=== PATIENT | male | born 1960 | race Hispanic/Latino ===

== ENCOUNTER 2018-12-26 10:39 | Emergency (ER) | payer MEDICAID ==
[2018-12-26] MEDS ORDERED: TETANUS/DIPHTHERIA TOXOID [ADULT] 0.5 ML VIAL IM ONE (10:56)
[2018-12-26] MEDS ORDERED: KETOROLAC TROMETHAMINE 60 MG/2 ML VIAL ONE (11:17)
== END 2018-12-26 11:53 | disposition home or self-care (01) ==
LOC: EDH 10:39
DX: S91.011A Laceration without foreign body, right ankle, initial encounter (principal); S43.491A Other sprain of right shoulder joint, initial encounter; I10 Essential (primary) hypertension; E78.5 Hyperlipidemia, unspecified; Z72.0 Tobacco use; W26.8XXA Contact with other sharp object(s), not elsewhere classified, initial encounter; Y93.89 Activity, other specified; Y92.89 Other specified places as the place of occurrence of the external cause; Y99.8 Other external cause status
CPT/HCPCS: 90471; 90714; 96372; 99284; J1885

== ENCOUNTER 2019-04-25 20:12 | Emergency (ER) | payer MEDICAID ==
[2019-04-25 21:00] LABS: BASOPHILS % (AUTO) 0.9 % (0.0-5.0); EOSINOPHILS % (AUTO) 0.1 % (0.0-8.0); HEMATOCRIT 52.4 % (42-54); MEAN CORPUSCULAR HEMOGLOBIN 34.8 pg (27.0-33.0); MEAN CORPUSCULAR HGB CONC 34.8 g/dL (32.0-36.0); MEAN CORPUSCULAR VOLUME 100.1 fL (79-99); MONOCYTES % (AUTO) 4.8 % (3.0-13.0); NEUTROPHILS % (AUTO) 83.2 % (40.0-77.0); PLATELET COUNT (AUTO) 171 K/uL (130-400); RED BLOOD CELL COUNT(AUTO) 5.23 MIL/uL (4.50-6.20); RED CELL DISTRIBUTION WIDTH 13.7 % (11.0-15.5); WHITE BLOOD COUNT (AUTO) 11.2 K/uL (4.8-10.8)
[2019-04-25] MEDS ORDERED: SODIUM CHLORIDE 0.9% 1000ML 1,000 ML IV ONE ×2 (21:07→23:24)
[2019-04-25] MEDS ORDERED: FAMOTIDINE/PF 20 MG/2 ML VIAL IV ONE (21:07)
[2019-04-25] MEDS ORDERED: ONDANSETRON HCL 4 MG/2 ML VIAL ONE (21:07)
[2019-04-25 21:11] LABS: CREATININE 0.9 mg/dL (0.5-1.5); POTASSIUM 3.8 mmol/L (3.5-5.1)
[2019-04-25 21:13] LABS: INR 0.97 (0.85-1.15); PARTIAL THROMBOPLASTIN TIME 26.5 SEC (26.3-35.5); PROTHROMBIN TIME 10.2 SEC (9.6-11.6)
[2019-04-25 21:16] LABS: ALBUMIN 4.2 g/dL (3.5-5.0); BILIRUBIN,TOTAL 0.9 mg/dL (0.2-1.0); TOTAL PROTEIN, SERUM 7.9 g/dL (6.0-8.3)
[2019-04-25] MEDS ORDERED: IOHEXOL-350 75 ML VIAL IV ONE (21:33)
[2019-04-25] MEDS ORDERED: METOCLOPRAMIDE 10 MG/2 ML VIAL ONE (23:24)
[2019-04-25] MEDS ORDERED: SODIUM CHLORIDE 0.9% 100 ML IV ONE (23:46)
[2019-04-25] MEDS ORDERED: HYDRALAZINE HCL 20 MG/ML VIAL ONE (23:46)
[2019-04-25 23:53] LABS: APPEARANCE,URINE Clear (CLEAR); BILIRUBIN,URINE Negative (NEGATIVE); COLOR,URINE Yellow (YELLOW); GLUCOSE, URINE (UA) Negative (NEGATIVE); KETONES,URINE Negative (NEGATIVE); LEUKOCYTE ESTERASE ,URINE Negative (NEGATIVE); NITRATE,URINE Negative (NEGATIVE); OCCULT BLOOD,URINE Nonhemolyzed Trace (NEGATIVE); PROTEIN,URINE Negative (NEGATIVE); UROBILINOGEN,URINE 0.2 mg/dL (0.2-1.0)
[2019-04-26 00:21] LABS: BACTERIA,URINE Rare /HPF (None Seen); RBC,URINE 0-1 /HPF (0-1); WBC,URINE 0-1 /HPF (0-1)
== END 2019-04-26 00:21 | disposition home or self-care (01) ==
LOC: EDH 20:12
DX: E86.9 Volume depletion, unspecified (principal); M54.5 Low back pain; I10 Essential (primary) hypertension; E78.5 Hyperlipidemia, unspecified; Z98.890 Other specified postprocedural states; Z72.0 Tobacco use
CPT/HCPCS: 36415; 71045; 74177; 80053; 81001; 82550; 83605; 83690; 84484; 85025; 85610; 85730; 87040 ×2; 93005; 96361; 96374; 96375; 99285; J0360; J2405; J2765; J3490; J7030 ×2; Q9967

== ENCOUNTER 2019-10-28 18:33 | Emergency (ER) | payer MEDICAID | END 2019-10-28 19:15 | disposition home or self-care (01) | LOC: EDH 18:33 | DX: T16.1XXA Foreign body in right ear, initial encounter (principal); I10 Essential (primary) hypertension; E78.5 Hyperlipidemia, unspecified; Z98.890 Other specified postprocedural states; Z72.0 Tobacco use; X58.XXXA Exposure to other specified factors, initial encounter; Y93.89 Activity, other specified; Y92.89 Other specified places as the place of occurrence of the external cause; Y99.8 Other external cause status ==

== ENCOUNTER 2022-06-25 14:16 | Emergency (ER) | payer MEDICAID ==
[~2022-06-25] VITALS: Ht 188 cm; Wt 95.3 kg
[2022-06-25 14:17] VITALS: BP 170/89
[2022-06-25] MEDS ORDERED: AMOX/CLAV 875/125MG TAB PO ONE (15:00)
[2022-06-25] MEDS ORDERED: AMOX1TAB16 PO (15:44)
== END 2022-06-25 16:10 | disposition home or self-care (01) ==
LOC: EDH 14:16
DX: S91.012A Laceration without foreign body, left ankle, initial encounter (principal); I10 Essential (primary) hypertension; Z98.890 Other specified postprocedural states; W54.0XXA Bitten by dog, initial encounter; Y93.9 Activity, unspecified; Y92.89 Other specified places as the place of occurrence of the external cause; Y99.8 Other external cause status
CPT/HCPCS: 73610

== ENCOUNTER 2025-01-30 09:35 | Inpatient (IN) | payer MEDICARE, MEDICAID ==
[~2025-01-30] VITALS: Ht 188 cm; Wt 108.2 kg
[~2025-01-30 09:35] MED LIST: ACET-66 PO; AEC81 PO; LOSA50TA64 PO; MULT-1289 PO; NAPR-1196 PO; OMEP20CA12 PO; TERB250T89 PO
[2025-01-30 10:10] LABS: BASOPHILS # (AUTO) 0.05 K/uL (0.00-0.20); BASOPHILS % (AUTO) 0.6 % (0.0-5.0); EOSINOPHILS # (AUTO) 0.12 K/uL (0.00-0.70); EOSINOPHILS % (AUTO) 1.5 % (0.0-8.0); HEMATOCRIT 42.5 % (42-54); IMMATURE GRANULOCYTE ABSOLUTE 0.03 K/uL (0-1); LYMPHOCYTES # (AUTO) 1.6 K/uL (1.0-4.8); LYMPHOCYTES % (AUTO) 20.6 % (21.0-51.0); MEAN CORPUSCULAR HEMOGLOBIN 33.7 pg (27.0-33.0); MEAN CORPUSCULAR HGB CONC 33.9 g/dL (32.0-36.0); MEAN CORPUSCULAR VOLUME 99.5 fL (79-99); MONOCYTES # (AUTO) 0.9 K/uL (0.1-1.0); MONOCYTES % (AUTO) 10.9 % (3.0-13.0); NEUTROPHILS # (AUTO) 5.2 K/uL (1.8-7.7); PLATELET COUNT (AUTO) 149 K/uL (130-400); RED BLOOD CELL COUNT(AUTO) 4.27 MIL/uL (4.50-6.20); RED CELL DISTRIBUTION WIDTH 14.7 % (11.0-15.5); WHITE BLOOD COUNT (AUTO) 7.9 K/uL (4.8-10.8)
[2025-01-30 10:15] LABS: INR 1.09 (0.85-1.15); PROTHROMBIN TIME 11.5 SEC (9.6-11.6)
[2025-01-30 10:16] LABS: PARTIAL THROMBOPLASTIN TIME 28.3 SEC (26.3-35.5)
[2025-01-30 10:17] LABS: ALBUMIN 3.6 g/dL (3.5-5.0); BILIRUBIN,DIRECT 0.6 mg/dL (0.0-0.3); BILIRUBIN,TOTAL 1.9 mg/dL (0.2-1.0); CREATININE 1.1 mg/dL (0.5-1.3); POTASSIUM 4.1 mmol/L (3.5-5.1); TOTAL PROTEIN, SERUM 7.2 g/dL (6.0-8.3)
--- NOTE | 2025-01-30 10:18 | EKG ---
[facility] Test Date: 2025-01-30 Test Time: 09:41:32 Pat Name: RAQUEL AGUAYO Department: 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
[2025-01-30 10:49] LABS: B-TYPE NATRIURETIC PEPTIDE 963 pg/mL (0-100)
--- NOTE | 2025-01-30 11:07 | HMCIMG ---
Exam Type: CHEST 1VW Clinical Information: CHEST PAIN Comparison: None Findings: Ill-defined infiltrates of both lungs are seen consistent with bilateral pneumonia. The heart is large in size. The bony and soft tissue structures show no worrisome pathology. IMPRESSION: Findings consistent with pneumonia. Cardiomegaly. Follow-up is advised.
[2025-01-30] MEDS ORDERED: acetaMINOPHEN 325 MG TAB PO PRN (13:00)
[2025-01-30] MEDS ORDERED: ondanSETRON 4MG INJ IVP PRN (13:00)
[2025-01-30] MEDS ORDERED: NITROGLYCERIN 0.4 MG SL TAB SL PRN (13:00)
--- NOTE | 2025-01-30 13:05 | ERN ---
ED Note History of Present Illness Stated Complaint: CP Chief Complaint: Chest Pain Time Seen by MD: 09:39 Dictation: 64-year-old male presenting to the emergency department with shortness a breath and lower extremity swelling over the past few weeks worse over the past few days. Patient reports this morning he fell palpitations and difficulty breathing when he walks around Allergies: Coded Allergies: No Known Drug Allergies (Unverified Allergy, Unknown, 04/26/19) Home Meds Reported Medications Terbinafine HCl (Terbinafine HCl) 250 Mg Tablet, 250 MG PO DAILY, TAB 02/29/24 Losartan Potassium (Losartan Potassium) 50 Mg Tablet, 50 MG PO DAILY, TAB 02/29/24 Aspirin (ASPIRIN 81 MG ECTAB) 81 Mg Ectab, 81 MG PO DAILY, TAB.EC 02/29/24 Omeprazole (Omeprazole) 20 Mg Capsule.dr, 20 MG PO DAILY, CAP 02/29/24 Mv-Min/Folic/K1/Lycopen/Lutein (Centrum Silver Men Tablet) 300 Mcg-60 Mcg-600 Mcg-300 Mcg Tablet, 1 EACH PO QODAY, TAB 02/28/24 Acetaminophen (Tylenol) 500 Mg Tab, 500 MG PO Q4H PRN for PAIN LEVEL 1 TO 5, TAB 02/28/24 Naproxen (Naproxen) 250 Mg Tablet, 250 MG PO BID, TAB 02/28/24 Past Medical History Past Medical History: No Pertinent History Additional Past Medical Hx: NON COMPLIANT Surgical History: Other Surgical History Other: KNEE Social History: Negative, Lives with family Review of System Dictation Constitutional: Negative for fever,chills, and weight loss Eyes: Negative for injury, pain,redness, and discharge ENT: Negative for injury,pain or swelling Cardiovascular: Per HPI Respiratory: Per HPI Abdomen/GI: Negative for abdominal pain, nausea, vomiting, diarrhea, and constipation Back: Negative for injury and pain : Negative for injury, bleeding and discharge MS/Extremity: Negative for injury and deformity Skin: Negative for rash, and discoloration Neuro: Negative for headache, weakness, numbness, tingling, and seizure Psych: Negative for suicide ideation, homicidal ideation, and hallucinations Initial Vital Sign VS Vital Signs Date Time Temp Pulse Resp B/P (MAP) Pulse Ox O2 Delivery O2 Flow Rate FiO2 01/30/25 09:36 97.9 139 20 147/117 96 Room Air 0 Physical Exam Dictation General: awake, alert, NAD Head/Face: Normocephalic, atraumatic Eyes: PERRL, EOMI, vision at baseline ENT: oral cavity clear, TMs clear, no signs of infection Neck: Trachea midline, supple, no nuchal rigidity Cardiovascular: Tachycardia normal S1/S2, No MRGs, positive for JVD, and bilateral lower extremity pitting edema Respiratory: Coarse bilateral breath sounds with crackles at the bases. Abdomen: Soft, non-tender, non-distended, normal bowel sounds, no guarding or rebound. Skin: Warm, dry, normal turgor, no rash MS/Extremity: Pulses equal, no cyanosis, neurovascular intact, FROM Neuro: COAx4, GCS 15, strength 5/5, CN 2-12 intact, normal cerebellar exam, normal gait, Psych: Normal behavior, mood, and affect normal Results (Laboratory/Radiology) Laboratory/Radiology Laboratory Tests Test 01/30/25 09:51 White Blood Count 7.9 K/uL (4.8-10.8) Red Blood Count 4.27 MIL/uL (4.50-6.20) L Hemoglobin 14.4 g/dL (14.0-18.0) Hematocrit 42.5 % (42-54) Mean Corpuscular Volume 99.5 fL (79-99) H Mean Corpuscular Hemoglobin 33.7 pg (27.0-33.0) H Mean Corpuscular Hemoglobin Concent 33.9 g/dL (32.0-36.0) Red Cell Distribution Width 14.7 % (11.0-15.5) Platelet Count 149 K/uL (130-400) Mean Platelet Volume 13.8 fL (7.5-10.5) H Immature Granulocyte % (Auto) 0.4 % (0-1) Neutrophils (%) (Auto) 66.0 % (40.0-77.0) Lymphocytes (%) (Auto) 20.6 % (21.0-51.0) L Monocytes (%) (Auto) 10.9 % (3.0-13.0) Eosinophils (%) (Auto) 1.5 % (0.0-8.0) Basophils (%) (Auto) 0.6 % (0.0-5.0) Neutrophils # (Auto) 5.2 K/uL (1.8-7.7) Lymphocytes # (Auto) 1.6 K/uL (1.0-4.8) Monocytes # (Auto) 0.9 K/uL (0.1-1.0) Eosinophils # (Auto) 0.12 K/uL (0.00-0.70) Basophils # (Auto) 0.05 K/uL (0.00-0.20) Absolute Immature Granulocyte (auto 0.03 K/uL (0-1) Nucleated Red Blood Cells 0.0 % (0.0-0.19) Prothrombin Time 11.5 SEC (9.6-11.6) Prothromb Time International Ratio 1.09 (0.85-1.15) Activated Partial Thromboplast Time 28.3 SEC (26.3-35.5) D-Dimer Quantitative (PE/DVT) 882 ng/mL (0-500) *H Sodium Level 141 mmol/L (136-145) Potassium Level 4.1 mmol/L (3.5-5.1) Chloride Level 107 mmol/L (101-111) Carbon Dioxide Level 30 mmol/L (21-32) Blood Urea Nitrogen 23 mg/dL (7-18) H Creatinine 1.1 mg/dL (0.5-1.3) Glomerular Filtration Rate Calc 74 mL/min (>90) Random Glucose 98 mg/dL (70-105) Total Calcium 8.6 mg/dL (8.5-10.1) Total Bilirubin 1.9 mg/dL (0.2-1.0) H Direct Bilirubin 0.6 mg/dL (0.0-0.3) H Aspartate Amino Transf (AST/SGOT) 33 U/L (10-37) Alanine Aminotransferase (ALT/SGPT) 36 U/L (12-78) Alkaline Phosphatase 103 U/L (50-136) Total Creatine Kinase 146 U/L (21-232) # Troponin I High Sensitivity 41 ng/L (4-75) B-Type Natriuretic Peptide 963 pg/mL (0-100) H Total Protein 7.2 g/dL (6.0-8.3) Albumin 3.6 g/dL (3.5-5.0) Labs Reviewed?: Yes EKG Comment: EKG reveals atrial flutter 2-1 conduction .137 heart rate, no STEMI ED Course ED Course Orders Procedure Category Date Status Time Vital Signs Per CPOE 01/30/25 Transmitted Routine 09:35 B-Type Natriuretic LAB 01/30/25 Complete Peptide 09:35 Chest 1vw RAD 01/30/25 Resulted 09:35 12 Lead Ekg Tracing- EKG 01/30/25 Complete Technical 09:35 Oxygen By Nc/Pulse Ox CPOE 01/30/25 Transmitted 09:35 Maintain Iv CPOE 01/30/25 Transmitted 09:35 Iv Insertion CPOE 01/30/25 Transmitted 09:35 Cardiac Monitoring CPOE 01/30/25 Transmitted 09:35 Pulse Oximetry With CPOE 01/30/25 Transmitted Vs And Prn 09:35 Cbc With Differential LAB 01/30/25 Complete 09:35 Activity: Br W/Brp CPOE 01/30/25 Transmitted With Assist 09:35 Creatine Kinase, Total LAB 01/30/25 Complete 09:35 Troponin I High LAB 01/30/25 Complete Sensitivity 09:35 Urinalysis Profile LAB 01/30/25 Logged 09:35 Basic Metabolic Panel LAB 01/30/25 Complete 09:35 D-Dimer LAB 01/30/25 Complete 09:40 Pt And Ptt LAB 01/30/25 Complete 09:40 Hepatic Function Panel LAB 01/30/25 Complete 09:35 Admit Orders ADM 01/30/25 Transmitted 12:52 Gi Soft/[place] Diet DIET 01/30/25 Transmitted Lunch Drug Screen Urine LAB 01/30/25 Logged 12:52 Telemetry Monitoring CPOE 01/30/25 Transmitted 12:52 Fall Precautions CPOE 01/30/25 Transmitted 12:52 Aspiration Precautions CPOE 01/30/25 Transmitted 12:52 Urinalysis Profile LAB 01/30/25 Logged 12:54 Drug Screen Urine LAB 01/30/25 Logged 12:54 Furosemide 40mg Vial PHA 01/30/25 Logged (Lasix 40mg Vial) 13:00 Echo 2-D Complete ECHO 01/30/25 Logged 12:54 Magnesium LAB 01/30/25 Logged 12:54 Thyroid Stimulating LAB 01/30/25 Logged Hormone 12:54 Hemoglobin A1c LAB 01/30/25 Logged 12:54 Ceftriaxone 1g Vial PHA 01/30/25 Logged (Rocephine 1g Inj) 13:00 Doxycycline Hyclate PHA 01/30/25 Logged (Doxycycline Hyclate 21:00 Vital Signs Date Time Temp Pulse Resp B/P (MAP) Pulse Ox O2 Delivery O2 Flow Rate FiO2 01/30/25 09:36 97.9 139 20 147/117 96 Room Air 0 Medical Decision Making MDM MDM: Differential diagnosis: Rationale: Tests considered and ordered secondary to shared decision making include: labs, ECG and radiology Previous outside records reviewed: Old ER visits. Risk of complication and/or morbidity or mortality of patient management: None Medications-Per medication reconciliation Need for hospitalization: Patient does meet criteria for hospitalization. Need for emergency major/minor surgery: No There are no social concerns with this patient. Prescription drug management Prescriptions will include symptomatic care Patient's prior external medical records from other ER visits were reviewed by me as indicated. Prior testing and results from previous visits were reviewed. Prior tests were taken into account with medical decision making and resource utilization, independent historian/historians were used to obtain complete medical history. I independently interpreted the test that were performed, results were reviewed by me and considered findings on radiology if ordered. Medical management and examination interpretation discussions were had by me with other qualified healthcare professionals as indicated for the patient's care. 64-year-old male new onset atrial flutter/fib with RVR and new onset CHF exacerbation given Lasix and rate control admitting to Medicine for further care and evaluation. Critical Care Note Comment(s) Total critical care time was 33 minutes. Excluding time for procedures. Management of critically ill patient with concern for acute decompensation. Management included interpretation of laboratory values and imaging, hemodynamics, time for consultation with consultants and admitting physician. DX & DISP Disposition: Inpatient Departure Impression: Primary Impression: Atrial fibrillation with rapid ventricular response Additional Impression: Acute CHF Condition: Stable Referrals: CHERYL LANDRUM (PCP) GAGANDEEP ANDREA MD Jan 30, 2025 13:05
[2025-01-30 13:13] LABS: APPEARANCE,URINE CLEAR (CLEAR); BILIRUBIN,URINE NEGATIVE (NEGATIVE); COLOR,URINE YELLOW (YELLOW); GLUCOSE, URINE (UA) NEGATIVE (NEGATIVE); KETONES,URINE NEGATIVE (NEGATIVE); LEUKOCYTE ESTERASE ,URINE NEGATIVE Leu/uL (NEGATIVE); NITRATE,URINE NEGATIVE (NEGATIVE); OCCULT BLOOD,URINE NEGATIVE (NEGATIVE); PH,URINE 5.5 (5.0-8.0); PROTEIN,URINE 30 mg/dL (NEGATIVE); UROBILINOGEN,URINE 3 mg/dL (0.2-1.0)
[2025-01-30 13:17] LABS: HEMOGLOBIN A1C 5.6 % (4.0-6.0)
[2025-01-30 13:19] LABS: ADD UA MICROSCOPIC YES
[2025-01-30 13:20] LABS: AMPHET/METH SCREEN,URINE NEGATIVE (NEGATIVE); BARBITURATE SCREEN, URINE NEGATIVE (NEGATIVE); BENZODIAZEPINES SCREEN,URINE NEGATIVE (NEGATIVE); CANNABINOID SCREEN,URINE POSITIVE (NEGATIVE); COCAINE SCREEN,URINE NEGATIVE (NEGATIVE); OPIATE SCREEN,URINE NEGATIVE (NEGATIVE); PHENCYCLIDINE SCREEN,URINE NEGATIVE (NEGATIVE)
[2025-01-30 13:21] LABS: MUCUS,URINE RARE LPF (None Seen); RBC,URINE 0-1 /HPF (0-1)
[2025-01-30 13:27] LABS: THYROID STIMULATING HORMONE 1.97 uIU/mL (0.36-3.74)
[2025-01-30] MEDS ORDERED: PoTASSium chloRIDE 20MEQ/100ML 100 ML IV PRN (13:30)
[2025-01-30] MEDS: PANTOPrazole 40 MG/VIAL IVP SCH (14:02)
[2025-01-30] MEDS: cefTRIAXone 1G VIAL IVPB SCH (14:04)
[2025-01-30] MEDS: furoSEMIDE 40MG VIAL IV SCH (14:05)
[2025-01-30] MEDS: metoPROLOL tartRATE 1 MG/ML 5ML VIAL IV ONE (14:05)
--- NOTE | 2025-01-30 14:24 | NUR ---
DCP: HOME Pt lives with austen Patricia [phone]. Pt does not report any insecurities with food, snf, and/or utilities. Sps states that pt should use a cane however he does not and tends to lose balance a lot. Sps also reports that pt drinks daily and smokes. SW offered substance abuse resources however pt does not think he needs them. Pt has provider services, 3 hrs daily for home management and meals. PCP is Dr. Preston Serrato and uses [facility] for any RX needs. At [place] pt will go home and family will assist with transportation. Addendum: 01/30/25 at 1430 by NICOLÁS RIVERA SS Amended: Links added.
[2025-01-30] MEDS: LoSARTan 50 MG TABLET PO SCH (14:27)
[2025-01-30] MEDS: dilTIAZem 25MG INJ IVP ONE (14:29)
[2025-01-30] MEDS ORDERED: LORazepam 2 MG/ML 1 ML VIAL IVP PRN (14:30)
[2025-01-30] MEDS ORDERED: metoPROLOL tartRATE 1 MG/ML 5ML VIAL IV PRN (14:30)
[2025-01-30] MEDS ORDERED: PHARMACY COMMUNICATION MISC PRN (14:30)
--- NOTE | 2025-01-30 14:33 | HMCIMG ---
Exam Type: US VENOUS DOPPLER BILATERAL Clinical Information: r/o lower extremity DVT Comparison: None Findings: The examination shows normal deep venous system. There is normal compressibility at all levels. There is no intraluminal clot. There is no occlusion. Adequate response is obtained on augmentation. Impression: No evidence of DVT.
--- NOTE | 2025-01-30 14:41 | CONS ---
[facility] CARDIOLOGY CONSULTATION REPORT Cardiology consultation note dictated for Meera Rucker MD Primary header setup operator: Anthony Toledo MD Date Patient Seen: Jan 30, 2025 Requesting Physician: Amarjit Hernandez MD Reason for Consultation: Afib with RVR and suspected CHF exacerbation History of Present Illness: This is a 64-year-old male with a past medical history of hypertension, paroxysmal atrial fibrillation not on anticoagulation due to medical noncompliance, 2D Echo on 02/29/2024 with an EF of 50-55%, no regional wall motion abnormalities, moderately to severely dilated left atrium, severely dilated right atrium, with a moderate to severely dilated inferior vena cava with no inspiratory collapse, and polysubstance use (cocaine, marijuana, alcohol, and tobacco abuse) who presented to the ED with complaints of BLE edema and shortness of breath over the last few days. Cardiology has been consulted for AFib/flutter with RVR and CHF exacerbation. The patient endorsed dyspnea with or without exertion, orthopnea, PND, and bilateral lower extremity edema that has progressed over the last 10 days. EKG on admission demonstrated atrial flutter with a possible 2:1AVB with a heart rate of 137bpm. BNP of 963. Chest x-ray demonstrates bilateral pleural effusions and pulmonary vascular congestion. Positive for JVD on assessment. The patient will start on furosemide 40 mg IV every12 hours. D-dimer was elevated at 882 and is pending a bilateral lower extremity venous Doppler to evaluate for DVT. Urine drug screen was positive for marijuana, last cocaine use was three weeks ago. TSH is normal at 1.97. Troponin is normal at 41. Echocardiogram is pending. Past Medical History: As per HPI and summarized below Past Surgical History: Left knee surgery Back surgery Family History: The patient's father of a heart attack in his 50s and had diabetes mellitus type 2. His mother and father each had diabetes mellitus type 2. Social History: The patient lives with his . Habits: The patient admits to smoking 3 packs per day with last use 1 week ago, the patient will drink 2-3 beers a night, but on the weekends, he will drink 24 individual 12 oz cans of beer. He also admits to smoking (1 joint) per day. Home Meds: None Current Meds: Medications Dose Ordered Sig/Nataly Start Time Stop Time Status Last Admin Furosemide 40 mg Q12H 01/30/25 13:00 03/01/25 12:59 Ceftriaxone Sodium 1 gm Q12H 01/30/25 13:00 02/09/25 12:59 Doxycycline Hyclate 100 mg BID 01/30/25 21:00 02/09/25 20:59 Pantoprazole Sodium 40 mg Q24H 01/30/25 13:00 03/01/25 12:59 Nitroglycerin 0.4 mg AD PRN 01/30/25 13:00 03/01/25 12:59 Acetaminophen 650 mg Q6H PRN 01/30/25 13:00 03/01/25 12:59 Ondansetron HCl 4 mg Q6H PRN 01/30/25 13:00 03/01/25 12:59 Potassium Chloride 100 ml @ 100 mls/hr AD PRN 01/30/25 13:30 03/01/25 13:29 Potassium Chloride 20 meq AD PRN 01/30/25 13:30 03/01/25 13:29 Potassium Chloride 20 meq AD PRN 01/30/25 13:30 03/01/25 13:29 Magnesium Sulfate 50 ml @ 0 mls/hr PROTOCOL 01/30/25 13:30 03/01/25 13:29 Hydralazine HCl 10 mg Q6H PRN 01/30/25 14:00 03/01/25 13:59 Review of Systems: CONST: No fever, fatigue, or weight changes. EYES: No recent vision problems. ENT: No congestion, ear pain, or sore throat. C/V: No chest pain or palpitations. Admits to BLE edema. RESP: Admits to dyspnea on exertion, orthopnea, and PND. GI: No abdominal pain, nausea, vomiting, constipation, or diarrhea. : No incontinence or dysuria. SKIN: No rash. NEURO: No headache, focal numbness or weakness, dizziness, or seizures. PSYCH: No depression or anxiety. HEME: No abnormal bruising or bleeding. LYMPH: No swollen glands. Physical Examination: GENERAL: No acute distress. HEAD: Normal with no signs of head trauma. EYES: Conjunctiva and sclera normal. ENT: Hearing grossly intact NECK: Positive for JVD. Normal carotid upstrokes without bruits. LUNGS: Coarse breath sounds to bases bilaterally. HEART: Normal rate and rhythm. Normal S1 and S2 without murmurs, gallop or rub. VASC: Peripheral pulses +2 bilaterally. ABD: Bowel sounds normal, soft, nontender, no masses, no organomegaly. No audible bruits. : Not examined LYMPH: No lymphadenopathy noted. EXT: No clubbing or cyanosis. BLE with 1+ edema. SKIN: No rashes or lesions noted. NEURO: Awake, alert, and oriented x3. No focal sensory or strength deficits noted. Vital Signs (last 8hr) Date Time Temp Pulse Resp B/P (MAP) Pulse Ox O2 Delivery O2 Flow Rate FiO2 01/30/25 12:50 96.3 136 15 150/46 95 Room Air* 0 21 01/30/25 09:36 97.9 139 20 147/117 96 Room Air 0 Laboratory: Hematology Labs: Test 01/30/25 09:51 Range/Units White Blood Count 7.9 4.8-10.8 K/uL Red Blood Count 4.27 L 4.50-6.20 MIL/uL Hemoglobin 14.4 14.0-18.0 g/dL Hematocrit 42.5 42-54 % Mean Corpuscular Volume 99.5 H 79-99 fL Mean Corpuscular Hemoglobin 33.7 H 27.0-33.0 pg Mean Corpuscular Hemoglobin Concent 33.9 32.0-36.0 g/dL Red Cell Distribution Width 14.7 11.0-15.5 % Platelet Count 149 130-400 K/uL Mean Platelet Volume 13.8 H 7.5-10.5 fL Immature Granulocyte % (Auto) 0.4 0-1 % Neutrophils (%) (Auto) 66.0 40.0-77.0 % Lymphocytes (%) (Auto) 20.6 L 21.0-51.0 % Monocytes (%) (Auto) 10.9 3.0-13.0 % Eosinophils (%) (Auto) 1.5 0.0-8.0 % Basophils (%) (Auto) 0.6 0.0-5.0 % Neutrophils # (Auto) 5.2 1.8-7.7 K/uL Lymphocytes # (Auto) 1.6 1.0-4.8 K/uL Monocytes # (Auto) 0.9 0.1-1.0 K/uL Eosinophils # (Auto) 0.12 0.00-0.70 K/uL Basophils # (Auto) 0.05 0.00-0.20 K/uL Absolute Immature Granulocyte (auto 0.03 0-1 K/uL Nucleated Red Blood Cells 0.0 0.0-0.19 % Chemistry Labs: Test 01/30/25 09:51 Range/Units Sodium Level 141 136-145 mmol/L Potassium Level 4.1 3.5-5.1 mmol/L Chloride Level 107 101-111 mmol/L Carbon Dioxide Level 30 21-32 mmol/L Blood Urea Nitrogen 23 H 7-18 mg/dL Creatinine 1.1 0.5-1.3 mg/dL Glomerular Filtration Rate Calc 74 >90 mL/min Random Glucose 98 70-105 mg/dL Hemoglobin A1c 5.6 4.0-6.0 % Estimated Average Glucose (eAG) 114 70-126 mg/dL Total Calcium 8.6 8.5-10.1 mg/dL Magnesium Level 2.00 1.80-2.40 mg/dL Total Bilirubin 1.9 H 0.2-1.0 mg/dL Direct Bilirubin 0.6 H 0.0-0.3 mg/dL Aspartate Amino Transf (AST/SGOT) 33 10-37 U/L Alanine Aminotransferase (ALT/SGPT) 36 12-78 U/L Alkaline Phosphatase 103 50-136 U/L Lactate Dehydrogenase 249 H 81-234 U/L Total Creatine Kinase 146 # 21-232 U/L Troponin I High Sensitivity 41 4-75 ng/L C-Reactive Protein, Quantitative 0.80 0.5-3.0 mg/L B-Type Natriuretic Peptide 963 H 0-100 pg/mL Total Protein 7.2 6.0-8.3 g/dL Albumin 3.6 3.5-5.0 g/dL Procalcitonin < 0.05 L 0.05-0.5 ng/mL Thyroid Stimulating Hormone (TSH) 1.97 # 0.36-3.74 uIU/mL Coagulation Labs: Test 01/30/25 09:51 Range/Units Prothrombin Time 11.5 9.6-11.6 SEC Prothromb Time International Ratio 1.09 0.85-1.15 Activated Partial Thromboplast Time 28.3 26.3-35.5 SEC D-Dimer Quantitative (PE/DVT) 882 *H 0-500 ng/mL Diagnostics / Radiology: Impression and Plan: Atrial fibrillation/flutter with RVR possible 2:1 AVB Acute on chronic diastolic congestive heart failure Hypertension Elevated D-dimer was elevated at 882 Hx of paroxysmal atrial fibrillation not on anticoagulation due to medical noncompliance 2D Echo on 02/29/2024 with an EF of 50-55% Polysubstance use (cocaine, marijuana, alcohol, and tobacco abuse) UDS positive for Marijuana on 01/30/2025 Atrial fibrillation/flutter with RVR possible 2:1 AVB EKG on admission demonstrated atrial flutter with a possible 2:1AVB with a heart rate of 137bpm. TSH is normal at 1.97 -Last cocaine use was three weeks ago and uses monthly, strongly instructed to cease use -Give Diltiazem 10mg IV bolus -Start Metoprolol tartrate 25mg q 8 hours -[id number] of at least 2 points, start on a Heparin gtt, with plans to transition to Eliquis 5mg bid prior to discharge once all procedures have been completed -Repeat Echocardiogram to assess LV function and valvular pathology -Continuous telemetry monitoring Acute on chronic diastolic congestive heart failure BNP of 963 Chest x-ray demonstrates bilateral pleural effusions and pulmonary vascular congestion -Continue with Lasix 40 mg IV every12 hours -BMP and Mg in AM Elevated D-dimer was elevated at 882 -Pending a bilateral lower extremity venous Doppler to evaluate for DVT MADHAV IZQUIERDO [employer] MA[employer] Jan 30, 2025 14:41
--- NOTE | 2025-01-30 14:48 | HP ---
[facility] PH[facility] Date of Service: Jan 30, 2025 Time of Service: 14:35 HISTORY OF PRESENT ILLNESS: Date of service: 01/30/2025 64-year-old male with underlying history of hypertension, history of atrial fibrillation currently not on anticoagulation, history of polysubstance abuse with smoking, alcohol and prior cocaine use who presented to the ER for further evaluation of one-week history of shortness of breath. Patient reports having dyspnea on exertion and PND and orthopnea . he has been having some substernal discomfort as well. He has been having mild coughing as well. Patient denies any fevers or chills or night sweats. Shortness of breaths is worsened with activity and patient is able to walk about 50-100 ft before he gets short of breath. Patient was [place] [facility] where he was found to have new onset atrial fibrillation with RVR, patient left against me dical advice and reports that he is currently not on any rate control or anticoagulation. Currently smokes about 2-3 packs of cigarettes daily for about 20-30 years. Also drinks about a case of beer about three to 4 times a week. Patient has a history of cocaine use as well. On presentation to the hospital, patient was noted to be afebrile, tachycardic with heart rate in 120s-130s with atrial fibrillation with RVR, blood pressure of 147/117. Labs on presentation showed WBC count of 7900, hemoglobin 14.4, platelet count of 756913. BMP remarkable for sodium of 141, potassium 4.1, BUN of 23,, creatinine 1.1. Chest x-ray showed bilateral infiltrates concerning for pulmonary edema with community-acquired pneumonia not ruled out. Patient will be admitted for decompensated heart failure with underlying atrial fibrillation with RVR. Patient will receive rate control with IV anticoag ulation. Consultation with Cardiology will be requested. Patient will receive also IV antibiotics until pneumonia is ruled out. REVIEW OF SYSTEMS CONSTITUTIONAL: Denies fevers, chills, or night sweats. No unintentional weight loss reported. NEUROLOGICAL: Denies headache, amaurosis fugax, motor weakness, sensory deficit, vertigo/spinning sensation, gait abnormalities, or tremors. ENT: No hearing loss, otalgia, otorrhea, rhinitis, rhinorrhea, hoarseness, or sore throat. CARDIOVASCULAR: Shortness of breath, dyspnea on exertion, PND, orthopnea PULMONARY: Denies any shortness of breath, cough, phlegm/sputum, hemoptysis, pleuritic chest pain. SLEEP: Denies morning headaches, daytime somnolence or napping. Denies difficulty falling asleep, staying asleep, waking from sleep. Denies knowledge of snoring. GASTROINTESTINAL: Denies any type of dysphagia to either liquids or solids. Denies nausea, vomiting, pyrosis, early satiety, abdominal pain, diarrhea, constipation, or changes in stool consistency or caliber. Denies coffee-ground emesis, hematemesis, hematochezia, or melanotic stools. GENITOURINARY: Denies frequency, urgency, nocturia, hematuria or incontinence (Storage/Irritative symptoms.) Low urinary stream, straining to void, urinary intermittency or hesitancy, splitting of the voiding stream, terminal dribbling. ENDOCRINOLOGIC: Denies polyuria, polydipsia, polyphagia or heat/cold intolerances. HEMATOLOGIC: Denies thrombophilia/previous clots, or coagulopathy/bleeding disorders. ONCOLOGIC: Denies personal history of malignancy. DERMATOLOGIC: Denies rashes or pruritus. PSYCHIATRIC: Denies any suicidal or homicidal ideation. Denies hallucinations. PAST MEDICAL HISTORY: BPH, prior history of atrial fibrillation with RVR requiring [place] [facility], history of hypertension PAST SURGICAL HISTORY: History of left knee replacement surgery, history of back surgery, reports having had recent cystoscopy for evaluation for screening for prostate cancer and was told that cystoscopy was negative for any significant pathology PAST SOCIAL HISTORY: Drinks about 12 pack of beer about three to 4 times a week for about 20-30 years, smokes 2-3 pack of cigarettes daily for about 30 years, patient has a previous history of cocaine use, denies recent history of cocaine use FAMILY HISTORY: Reports family history of diabetes and heart disease in the family Allergies: No known drug allergies Home medications: Reports being on p.r.n. Flomax Coded Allergies: No Known Drug Allergies (Unverified Allergy, Unknown, 04/26/19) PHYSICAL EXAM GENERAL APPEARANCE: The patient is awake, alert, and oriented, in no acute cardiopulmonary distress. NEUROLOGICAL: Cranial nerves II-XII grossly intact. Motor is 5/5 in bilateral upper and lower extremities proximal to distal. No sensory deficits. HEENT: Face is symmetric. Pupils are equal and reactive. Extraocular movements are intact. NECK: Supple. No JVD. No thyromegaly. No submental, submandibular, pre- /postauricular, occipital or supraclavicular lymphadenopathy. CHEST: Normal chest expansion. No Telemetry. LUNGS: Crackles noted at bilateral lung bases CARDIOVASCULAR: Irregularly irregular. S1 and S2 normal. No appreciable rubs, murmurs or gallops. ABDOMEN: Soft, nontender, and nondistended. There is no rebound, voluntary guarding, or rigidity. : Deferred. No Winston. EXTREMITIES: 2+ pitting edema of the lower extremities SKIN: No skin breakdown. Vital Sign (Last 24 Hours) 01/30/25 01/30/25 12:50 14:29 Temp 96.3 Pulse 115 Resp 15 B/P (MAP) 153/123 Pulse Ox 95 O2 Delivery Room Air* O2 Flow Rate 0 FiO2 21 LABS: Laboratory: Test 01/30/25 13:02 01/30/25 09:51 Range/Units Urine Color YELLOW YELLOW Urine Appearance CLEAR CLEAR Urine pH 5.5 5.0-8.0 Urine Specific Alva 1.024 1.001-1.031 Urine Protein 30 H NEGATIVE mg/dL Urine Glucose (UA) NEGATIVE NEGATIVE mg/dL Urine Ketones NEGATIVE NEGATIVE mg/dL Urine Occult Blood NEGATIVE NEGATIVE Urine Nitrate NEGATIVE NEGATIVE Urine Bilirubin NEGATIVE NEGATIVE mg/dL Urine Urobilinogen 3 H 0.2-1.0 mg/dL Urine Leukocyte Esterase NEGATIVE NEGATIVE Martinez/uL Urine RBC 0-1 0-1 /HPF Urine WBC 2-5 H 0-1 /HPF Urine Bacteria None None Seen /HPF Urine Opiates Screen NEGATIVE NEGATIVE Urine Barbiturates Screen NEGATIVE NEGATIVE Urine Phencyclidine Screen NEGATIVE NEGATIVE Urine Amphetamines Screen NEGATIVE NEGATIVE Urine Benzodiazepines Screen NEGATIVE NEGATIVE Urine Cocaine Screen NEGATIVE NEGATIVE Urine Marijuana (THC) Screen POSITIVE H NEGATIVE White Blood Count 7.9 4.8-10.8 K/uL Red Blood Count 4.27 L 4.50-6.20 MIL/uL Hemoglobin 14.4 14.0-18.0 g/dL Hematocrit 42.5 42-54 % Mean Corpuscular Volume 99.5 H 79-99 fL Mean Corpuscular Hemoglobin 33.7 H 27.0-33.0 pg Mean Corpuscular Hemoglobin Concent 33.9 32.0-36.0 g/dL Red Cell Distribution Width 14.7 11.0-15.5 % Platelet Count 149 130-400 K/uL Mean Platelet Volume 13.8 H 7.5-10.5 fL Immature Granulocyte % (Auto) 0.4 0-1 % Neutrophils (%) (Auto) 66.0 40.0-77.0 % Lymphocytes (%) (Auto) 20.6 L 21.0-51.0 % Monocytes (%) (Auto) 10.9 3.0-13.0 % Eosinophils (%) (Auto) 1.5 0.0-8.0 % Basophils (%) (Auto) 0.6 0.0-5.0 % Neutrophils # (Auto) 5.2 1.8-7.7 K/uL Lymphocytes # (Auto) 1.6 1.0-4.8 K/uL Monocytes # (Auto) 0.9 0.1-1.0 K/uL Eosinophils # (Auto) 0.12 0.00-0.70 K/uL Basophils # (Auto) 0.05 0.00-0.20 K/uL Absolute Immature Granulocyte (auto 0.03 0-1 K/uL Nucleated Red Blood Cells 0.0 0.0-0.19 % Erythrocyte Sedimentation Rate 4 0-20 MM/HR Prothrombin Time 11.5 9.6-11.6 SEC Prothromb Time International Ratio 1.09 0.85-1.15 Activated Partial Thromboplast Time 28.3 26.3-35.5 SEC D-Dimer Quantitative (PE/DVT) 882 *H 0-500 ng/mL Sodium Level 141 136-145 mmol/L Potassium Level 4.1 3.5-5.1 mmol/L Chloride Level 107 101-111 mmol/L Carbon Dioxide Level 30 21-32 mmol/L Blood Urea Nitrogen 23 H 7-18 mg/dL Creatinine 1.1 0.5-1.3 mg/dL Glomerular Filtration Rate Calc 74 >90 mL/min Random Glucose 98 70-105 mg/dL Hemoglobin A1c 5.6 4.0-6.0 % Estimated Average Glucose (eAG) 114 70-126 mg/dL Total Calcium 8.6 8.5-10.1 mg/dL Magnesium Level 2.00 1.80-2.40 mg/dL Total Bilirubin 1.9 H 0.2-1.0 mg/dL Direct Bilirubin 0.6 H 0.0-0.3 mg/dL Aspartate Amino Transf (AST/SGOT) 33 10-37 U/L Alanine Aminotransferase (ALT/SGPT) 36 12-78 U/L Alkaline Phosphatase 103 50-136 U/L Lactate Dehydrogenase 249 H 81-234 U/L Total Creatine Kinase 146 # 21-232 U/L Troponin I High Sensitivity 41 4-75 ng/L C-Reactive Protein, Quantitative 0.80 0.5-3.0 mg/L B-Type Natriuretic Peptide 963 H 0-100 pg/mL Total Protein 7.2 6.0-8.3 g/dL Albumin 3.6 3.5-5.0 g/dL Procalcitonin < 0.05 L 0.05-0.5 ng/mL Thyroid Stimulating Hormone (TSH) 1.97 # 0.36-3.74 uIU/mL Current Medications Medications (Trade) Dose Ordered Sig/Nataly Route PRN Reason Start Time Stop Time Status Last Admin Dose Admin Acetaminophen (TYLenol 325MG TAB) 650 mg Q6H PRN PO MILD PAIN (1-3) 01/30/25 13:00 03/01/25 12:59 Ceftriaxone Sodium (ROCEphine 1G INJ) 1 gm Q12H IVPB 01/30/25 13:00 02/09/25 12:59 01/30/25 14:04 1 GM Chlordiazepoxide HCl (LIBrium 25 MG CAP) 25 mg Q4H PRN PO ALCOHOL WITHDRAWAL PROTOCOL 01/30/25 14:30 02/06/25 14:29 Doxycycline Hyclate (Doxycycline Hyclate) 100 mg BID PO 01/30/25 21:00 02/09/25 20:59 Folic Acid (FOLic ACID 1 MG TABLET) 1 mg DAILY PO 01/31/25 09:00 02/02/25 09:01 Furosemide (LASix 40MG VIAL) 40 mg Q12H IV 01/30/25 13:00 03/01/25 12:59 01/30/25 14:05 40 MG Heparin Sodium (Porcine) (HEParin 5,000 UNIT VIAL) *calculation based on ACTUAL B... AD PRN IV HEPARIN PROTOCOL 01/30/25 15:00 03/01/25 14:59 Heparin Sodium/ Dextrose 250 ml @ 0 mls/hr Q6H IV 01/30/25 15:00 03/01/25 14:59 Hydralazine HCl (APRESOLine 20MG INJ) 10 mg Q6H PRN IV ADMINISTER FOR SBP > 170 01/30/25 14:00 03/01/25 13:59 Lorazepam (AtiVAN) 1 mg Q4H PRN IVP ALCOHOL WITHDRAWAL PROTOCOL 01/30/25 14:30 02/06/25 14:29 Losartan Potassium (CozAAR 50 mg TAB) 50 mg Q24H PO 01/30/25 14:30 03/01/25 14:29 01/30/25 14:27 50 MG Magnesium Sulfate 50 ml @ 0 mls/hr PROTOCOL IV 01/30/25 13:30 03/01/25 13:29 Multivitamins Therapeutic (Multivitamin Tablet) 1 tab DAILY PO 01/31/25 09:00 03/02/25 08:59 Nitroglycerin (Nitrostat) 0.4 mg AD PRN SL CHEST PAIN 01/30/25 13:00 03/01/25 12:59 Ondansetron HCl (zoFRAN 4MG INJ) 4 mg Q6H PRN IVP NAUSEA/VOMITING 01/30/25 13:00 03/01/25 12:59 Pantoprazole Sodium (PROTonix 40MG INJ) 40 mg Q24H IVP 01/30/25 13:00 03/01/25 12:59 01/30/25 14:02 40 MG Pharmacy Profile Note (Pharmacy Communication) 1 each PROTOCOL PRN MISC ETOH Withdrawal Score changes 01/30/25 14:30 02/06/25 14:29 Potassium Chloride 100 ml @ 100 mls/hr AD PRN IV POTASSIUM PROTOCOL 01/30/25 13:30 03/01/25 13:29 Potassium Chloride (K-Dur/Klor-Con 20meq) 20 meq AD PRN PO POTASSIUM PROTOCOL 01/30/25 13:30 03/01/25 13:29 Potassium Chloride (KCl 10% Elixir 20meq/15ml) 20 meq AD PRN PO POTASSIUM PROTOCOL 01/30/25 13:30 03/01/25 13:29 DIAGNOSTICS / RADIOLOGY: SERVICE [id number] REASON: CHEST PAIN ORDERING PHYSICIAN: GAGANDEEP ANDREA MD PROCEDURE: CXR1VW - CHEST 1VW Exam Type: CHEST 1VW Clinical Information: CHEST PAIN Comparison: None Findings: Ill-defined infiltrates of both lungs are seen consistent with bilateral pneumonia. The heart is large in size. The bony and soft tissue structures show no worrisome pathology. IMPRESSION: Findings consistent with pneumonia. Cardiomegaly. Follow-up is advised. DICTATED BY: JARET MCCAULEY MD DATE: 01/30/251102 ELECTRONICALLY SIGNED BY: JARET MCCAULEY MD DATE: 01/30/251106 ASSESSMENT: Acute Systolic and Diastolic heart failure exacerbation, (CHADS Vasc score of at least 3),POA Acute hypoxemic respiratory failure, POA Atrial fibrillation with RVR, POA History of medical noncompliance, POA Uncontrolled hypertension, POA History of polysubstance abuse with tobacco and alcohol, POA Prior history of cocaine use, POA BPH, POA PLAN: Patient will be admitted to cardiac telemetry floor Patient is volume overloaded with lower extremity edema and elevated BNP, we will follow up 2D echocardiogram to assess for significant cardiomyopathy We will start patient on IV Lasix 40 mg twice daily, we will keep fluid restrictions of 1.5 L daily Discussed patient's case with Cardiology, patient does have history of cocaine use, we will check urine drug screen, denies current cocaine use We will follow up in Cardiology with regards to rate control and patient will be started on IV heparin drip for anticoagulation to reduce risk of stroke with regards to atrial fibrillation, we will avoid any IV Cardizem due to underlying concerns for systolic heart failure We will start patient on losartan 50 mg daily with regards to management of uncontrolled hypertension With regards to chest x-ray, patient has bilateral infiltrates, we will rule out pneumonia as well, obtain respiratory culture, we will keep patient on antibiotics with IV Rocephin/doxycycline, we will check a flu and COVID test as well We will request consultation with pulmonology Electrolytes will be repleted per protocol, we will maintain potassium greater than four and magnesium greater than two Monitor closely for bleeding, we will keep patient on GI prophylaxis with IV Protonix All labs will be repeated in the morning Anticipate hospitalization for at least 48-72 hours Plan of care was discussed with patient and at bedside, Amarjit Hernandez MD Advanced Care Planning: Which of the following were discussed: Hospice care: Yes __ No _X_ Therapeutic options: Yes _X_ No __ Advance directives: Yes _X_ No __ Other discussions: Discussed with who?: Patient Voluntary nature of this service was explained to the patient? Yes _x_ No __ Amount of time spent: 20 minutes AMARJIT HERNANDEZ MD Jan 30, 2025 14:48
[2025-01-30 15:13] LABS: INR 1.08 (0.85-1.15); PROTHROMBIN TIME 11.4 SEC (9.6-11.6)
[2025-01-30 15:14] LABS: PARTIAL THROMBOPLASTIN TIME 27.5 SEC (26.3-35.5)
[2025-01-30] MEDS: HEParin 5,000 UNIT VIAL IV PRN (15:26)
[2025-01-30 15:33] VITALS: PULSE 67; RESP 20; O2SAT 95
[2025-01-30] MEDS: HEParin 25,000 UNITS/250ML D5W 250 ML IV SCH (15:39)
[2025-01-30 15:43] LABS: SARS-CoV-2, RNA, NAAT NEGATIVE SARS CoV-2 (NEGATIVE)
[2025-01-30 15:48] LABS: INFLUENZA TYPE A Negative For Type A (NEGATIVE); INFLUENZA TYPE B Negative For Type B (NEGATIVE)
--- NOTE | 2025-01-30 15:52 | NUR ---
Started Heparin Drip at 17u/kg/hr. Mrs. Nkechi JENSEN co-signed.
--- NOTE | 2025-01-30 15:53 | NUR ---
Obtained covid and strep swabs.
[2025-01-30 18:13] LABS: INR 1.13 (0.85-1.15); PROTHROMBIN TIME 11.8 SEC (9.6-11.6)
[2025-01-30 18:15] LABS: PARTIAL THROMBOPLASTIN TIME 74.6 SEC (26.3-35.5)
--- NOTE | 2025-01-30 18:34 | CONS ---
[facility] CONSULTATION NOTE Date Patient Seen: Jan 30, 2025 Time of Visit: 18:33 Supervising Physician: Dr. Carlos Eduardo Parada Reason for Consultation: Pulmonary edema verse pneumonia Primary Care Physician: Dr. Ochoa Serrato Outpatient Specialists: [ ] Inpatient Consults: PROBLEM LIST: 1. Acute hypoxemic respiratory failure -requiring supplemental oxygen 2. Acute diastolic and systolic heart failure (awaiting echocardiogram results) 3. Atrial fibrillation with RVR, POA -[id number] score of 2per Cardiology consult patient is started heparin drip 4. 50 year pack smoker, recently quit 5. Polysubstance abuse: Positive THC -previous admission positive for cocaine 6. Alcohol abuse -patient reports drinking case of beer three to 4 times a week 7. Hypertension, uncontrolled 8. Medication noncompliance Recommendations: Reviewing chest x-ray, rule out pneumonia, infiltrates Keep oxygen saturations greater than 92% Dry cough, elevated D-dimer 882, CTA PE protocol with and without contrast ordered, to rule out pulmonary emboli Albuterol breathing treatments scheduled q.6 hours Pulmicort q.12 hours Antibiotics: Doxycycline 100 mg p.o. b.i.d. and ceftriaxone 1 g q.24 hr. Lasix 40 mg IV b.i.d. Electrolyte replacement protocol HPI: Mina Patricia is a 64 year old gentleman, patient of Dr. Ochoa Serrato, health history: History of atrial fibrillation, hypertension, hyperlipidemia, noncompliance with medication, history of polysubstance abuse: Cocaine, alcohol, presents to the emergency department today, 01/30/2025 at approximately 930 with a dry cough. Patient reports having the cough for three days and progressively worsening. Patient denies chest pain, shortness of the breath, fever, chills, recent ill person contact, night sweats, dysuria, bloody stools, constipation and diarrhea currently. Vital signs on arrival: Temperature 97.9 F, pulse 139, respirations 20, blood pressure 147/117, oxygen saturation 96% air. Laboratory results: WBC 7.9, hemoglobin 14.4, hematocrit 42.5%, platelets 149, sodium level 141, potassium 4.1, chloride 107, carbon dioxide 30, BUN 23, creatinine 1.1, GFR 74, random blood glucose 98, AST33, troponin 41, ALT 36, BNP 963. Coagulation results: PT 11.5 seconds, INR 1.09, APTT 28.3 seconds, D-dimer 882 Chest one view findings: Ill-defined infiltrates of both lungs are seen consistent with bilateral pneumonia. Heart is large in size, impressions cardiomegaly. Findings consistent with pneumonia. EKG results: Atrial fibrillation 2:1 Conduction rate [address] segment elevation or depression. Plan: Elevated D-dimer, dry cough persistent, CTA chest per PE protocol to rule out pulmonary emboli ordered Patient to be admitted to PCCU with continuous telemetry monitoring PAST MEDICAL HX: see above PAST SURGICAL HX: Left knee total arthroplasty, history of spine surgery lower back, diagnostic cystoscopy for the evaluation of prostate cancer, negative patient reports SOCIAL HISTORY: Patient reports drinking a case of beer three to 4 times a week. Patient reports smoking to three packs of cigarettes for 50+ years, patient reports recently quitting. Patient reports using recreational drugs, history of cocaine abuse positive on previous admission, February/2024, during this admission positive for THC. Coded Allergies: No Known Drug Allergies (Unverified Allergy, Unknown, 04/26/19) REVIEW OF SYSTEMS: 12 point ROS reviewed with patient. Pertinent positives mentioned above. Otherwise negative. PHYSICAL EXAM: GENERAL: alert, weak, awake oriented x 3 HEENT: EOMI, Sclera non icteric, moist mucosa NECK: Supple, no JVD, trachea midline LUNGS: Clear breath sounds bilaterally. No wheezes HEART: Irregular rate, accelerated rhythm, atrial fib, no murmur ABD: Abdomen tense, distended, Bowel sounds present EXT: Clubbing bilateral lower extremities, pitting dependent edema, NEURO: Alert and oriented to person, follows commands Vital Signs (last 8hr) Date Time Temp Pulse Resp B/P (MAP) Pulse Ox O2 Delivery O2 Flow Rate FiO2 01/30/25 16:00 98.1 77 20 122/77 93 Nasal Cannula* 2 28 01/30/25 15:33 67 20 N/Cannula Low lpm 2.0 28 01/30/25 14:29 115 153/123 01/30/25 14:05 134 162/123 01/30/25 12:50 96.3 136 15 150/46 95 Room Air* 0 21 LABS: Hematology Labs: Test 01/30/25 09:51 Range/Units White Blood Count 7.9 4.8-10.8 K/uL Red Blood Count 4.27 L 4.50-6.20 MIL/uL Hemoglobin 14.4 14.0-18.0 g/dL Hematocrit 42.5 42-54 % Mean Corpuscular Volume 99.5 H 79-99 fL Mean Corpuscular Hemoglobin 33.7 H 27.0-33.0 pg Mean Corpuscular Hemoglobin Concent 33.9 32.0-36.0 g/dL Red Cell Distribution Width 14.7 11.0-15.5 % Platelet Count 149 130-400 K/uL Mean Platelet Volume 13.8 H 7.5-10.5 fL Immature Granulocyte % (Auto) 0.4 0-1 % Neutrophils (%) (Auto) 66.0 40.0-77.0 % Lymphocytes (%) (Auto) 20.6 L 21.0-51.0 % Monocytes (%) (Auto) 10.9 3.0-13.0 % Eosinophils (%) (Auto) 1.5 0.0-8.0 % Basophils (%) (Auto) 0.6 0.0-5.0 % Neutrophils # (Auto) 5.2 1.8-7.7 K/uL Lymphocytes # (Auto) 1.6 1.0-4.8 K/uL Monocytes # (Auto) 0.9 0.1-1.0 K/uL Eosinophils # (Auto) 0.12 0.00-0.70 K/uL Basophils # (Auto) 0.05 0.00-0.20 K/uL Absolute Immature Granulocyte (auto 0.03 0-1 K/uL Nucleated Red Blood Cells 0.0 0.0-0.19 % Erythrocyte Sedimentation Rate 4 0-20 MM/HR Chemistry Labs: Test 01/30/25 09:51 Range/Units Sodium Level 141 136-145 mmol/L Potassium Level 4.1 3.5-5.1 mmol/L Chloride Level 107 101-111 mmol/L Carbon Dioxide Level 30 21-32 mmol/L Blood Urea Nitrogen 23 H 7-18 mg/dL Creatinine 1.1 0.5-1.3 mg/dL Glomerular Filtration Rate Calc 74 >90 mL/min Random Glucose 98 70-105 mg/dL Hemoglobin A1c 5.6 4.0-6.0 % Estimated Average Glucose (eAG) 114 70-126 mg/dL Total Calcium 8.6 8.5-10.1 mg/dL Magnesium Level 2.00 1.80-2.40 mg/dL Total Bilirubin 1.9 H 0.2-1.0 mg/dL Direct Bilirubin 0.6 H 0.0-0.3 mg/dL Aspartate Amino Transf (AST/SGOT) 33 10-37 U/L Alanine Aminotransferase (ALT/SGPT) 36 12-78 U/L Alkaline Phosphatase 103 50-136 U/L Lactate Dehydrogenase 249 H 81-234 U/L Total Creatine Kinase 146 # 21-232 U/L Troponin I High Sensitivity 41 4-75 ng/L C-Reactive Protein, Quantitative 0.80 0.5-3.0 mg/L B-Type Natriuretic Peptide 963 H 0-100 pg/mL Total Protein 7.2 6.0-8.3 g/dL Albumin 3.6 3.5-5.0 g/dL Procalcitonin < 0.05 L 0.05-0.5 ng/mL Thyroid Stimulating Hormone (TSH) 1.97 # 0.36-3.74 uIU/mL Coagulation Labs: Test 01/30/25 17:47 01/30/25 09:51 Range/Units Prothrombin Time 11.8 H 9.6-11.6 SEC Prothromb Time International Ratio 1.13 0.85-1.15 Activated Partial Thromboplast Time 74.6 #H 26.3-35.5 SEC D-Dimer Quantitative (PE/DVT) 882 *H 0-500 ng/mL DIAGNOSTICS / RADIOLOGY RESULTS: [ ] PLAN NEURO: Minimize central acting medications as possible. Maintain fall precautions, adequate lighting during the day PULMONARY: Supplemental 02 as needed. Maintain aspiration precautions at all times Humidified oxygen Albuterol breathing treatments Pulmicort q.12 hours CARDIOVASCULAR: Follow hemodynamics. Vital signs per facility protocol GI & NUTRITION: Continue with nutritional support. Continue stool softeners and laxatives as needed. KIDNEYS & ELECTROLYTES: Strict monitoring of intake, output and overall fluid balance. Avoid nephrotoxic medications to the extent possible. Medications to be dosed according to renal function. Monitor electrolytes and replace as needed ENDOCRINE: Maintain blood glucose between 100-180 at all times. Hypoglycemia protocol in place Sliding scale insulin INFECTIOUS DISEASE: Trend temperature, WBC and procalcitonin level Follow cultures, deescalate antibiotics as soon as possible. Panculture if new onset fever Treating patient prophylactically doxycycline 100 mg p.o. b.i.d. ONCOLOGY/HEMATOLOGY/COAGULATION: Monitor for s/s of bleeding Monitor hemoglobin, coagulation studies as needed SKIN: Pressure ulcer prevention per facility protocol Specialty mattress ORTHO/REHAB: Continue PT/OT Prophylaxis: Continue GI and DVT prophylaxis Code Status: Full Resuscitation Disposition: TBD Other: Total patient care time exceeds 35 minutes excluding all procedures. RIVERA FR[place] NP Jan 30, 2025 18:33
[2025-01-30 20:02] VITALS: PULSE 91; RESP 20; O2SAT 99
[2025-01-30] MEDS: SODIUM CHLORIDE 3% FOR INHALATION 4 ML/AMP VIAL.NEB IH ONE (20:21)
[2025-01-30] MEDS: DOXYCYCLINE HYCLATE 100 MG TABLET PO SCH (20:39)
[2025-01-30] MEDS: metoPROLOL tartRATE 25 MG TAB PO SCH (20:39)
--- NOTE | 2025-01-30 20:59 | NUR ---
CALLED TO SEE IF PATIENT HAD IV AND CONSENT READY FOR CT, NOT READY, NOTE WAS LEFT FOR NURSE, PATIENT IS ABOUT TO GO UP TO THE FLOOR STOPPING AT CT FOR EXAM ON THE WAY UP.
[2025-01-30] MEDS ORDERED: IOHEXOL-350 75 ML VIAL IV ONE (21:24)
[2025-01-30 21:40] VITALS: O2SAT 97
--- NOTE | 2025-01-30 21:40 | NUR ---
PT ARRIVED TO ROOM 231 FROM ER VIA STRETCHER. TRANSFERRED PT TO BED, TOLERATED WELL. EDUCATED PT IN USE OF CALL LIGHT AND TO NOT GET OUT OF BED BY SELF, VERBALIZED UNDERSTANDING. LEFT BED LOW, LOCKED, RAILS UPX2, AND CALL LIGHT IN REACH.
--- NOTE | 2025-01-30 21:44 | HMCIMG ---
CT angiogram chest CLINICAL INDICATION: Elevated D-dimer 882, dry cough, trying to rule out pulmonary emboli COMPARISON: None. CT Dose Index (CTDI): 113.50 mGy Dose Length Product (DLP): 1408.10 total mGy PROTOCOL: Contrast: 100 cc of Isovue-370, injected IV, no complications Examination is done at 2.5 millimeter volumetric acquisition after contrast administration. Photography is done at 5 millimeter thick intervals for the thorax. FINDINGS: There is no evidence of pulmonary embolism. The airway is intact. The trachea and major bronchi are unremarkable. Bilateral basal pneumonia and pleural effusions, small on the left, moderate to large on the right. The exam of the yoav and mediastinum is unremarkable. No evidence of hilar enlargement is seen. The aorta shows no aneurysmal dilatation or significant atheromatous calcification. There is no thoracic aortic dissection. No significant brachiocephalic vascular abnormalities are seen. The heart is unremarkable. It is not enlarged. No significant coronary arterial calcifications are seen. There is no pericardial effusion. The rib cage appears unremarkable. The soft tissues of the chest wall are unremarkable. The dorsal spine shows no significant abnormalities. Limited evaluation of the upper abdomen demonstrates no gross abnormalities. IMPRESSION: No evidence of pulmonary embolism Bilateral pleural effusions, bilateral basal pneumonia. Follow-up advised. This study was performed using dose reduction techniques to include automated exposure control and/or adjustment of the mA and/or kV according to patient size.
[2025-01-30 22:06] VITALS: BP 135/101; PULSE 52; RESP 18; TEMP 98.3
[2025-01-30] MEDS ORDERED: TAMS-55 (22:08)
[2025-01-30 23:20] VITALS: BP 111/71; PULSE 68; RESP 18; TEMP 98.3
[2025-01-31] VITALS (12 sets, daily range): BP systolic 121–168; BP diastolic 88–108; PULSE 45–102; RESP 18–20; TEMP 97.5–98.3; O2SAT 95–99
[2025-01-31 05:10] LABS: BASOPHILS # (AUTO) 0.09 K/uL (0.00-0.20); BASOPHILS % (AUTO) 1.3 % (0.0-5.0); EOSINOPHILS # (AUTO) 0.15 K/uL (0.00-0.70); EOSINOPHILS % (AUTO) 2.2 % (0.0-8.0); HEMATOCRIT 40.7 % (42-54); IMMATURE GRANULOCYTE ABSOLUTE 0.02 K/uL (0-1); LYMPHOCYTES # (AUTO) 1.8 K/uL (1.0-4.8); LYMPHOCYTES % (AUTO) 27.1 % (21.0-51.0); MEAN CORPUSCULAR HEMOGLOBIN 34.1 pg (27.0-33.0); MEAN CORPUSCULAR HGB CONC 34.4 g/dL (32.0-36.0); MEAN CORPUSCULAR VOLUME 99.3 fL (79-99); MONOCYTES # (AUTO) 0.7 K/uL (0.1-1.0); MONOCYTES % (AUTO) 11.1 % (3.0-13.0); NEUTROPHILS # (AUTO) 3.9 K/uL (1.8-7.7); PLATELET COUNT (AUTO) 140 K/uL (130-400); RED CELL DISTRIBUTION WIDTH 14.6 % (11.0-15.5); WHITE BLOOD COUNT (AUTO) 6.7 K/uL (4.8-10.8)
[2025-01-31 05:19] LABS: ALBUMIN 3.4 g/dL (3.5-5.0); BILIRUBIN,TOTAL 1.3 mg/dL (0.2-1.0); CREATININE 1.2 mg/dL (0.5-1.3); MAGNESIUM 1.9 mg/dL (1.80-2.40); POTASSIUM 3.3 mmol/L (3.5-5.1); TOTAL PROTEIN, SERUM 6.8 g/dL (6.0-8.3)
[2025-01-31] MEDS: PoTASSium chl 10% ELIXIR 20MEQ 20 MEQ/15 ML UDCUP PO PRN (05:33)
[2025-01-31] MEDS ORDERED: IpraTROPium 0.5 MG/2.5 ML INH IH PRN (06:00)
[2025-01-31] MEDS: BUDESONIDE 0.5 MG/2 ML INH IH SCH (06:56)
--- NOTE | 2025-01-31 07:28 | PN ---
[facility] Cardiology Progress Note CARDIOLOGY PROGRESS NOTE JANUARY 31, 2025 Problems: 1. Acute on chronic diastolic heart failure 2. Atrial flutter with two-to-one conduction 3. History of paroxysmal atrial fibrillation not on anticoagulation due to noncompliance 4. Hypertension 5. Polysubstance abuse with cocaine marijuana alcohol and tobacco 6. Elevated D-dimer with no evidence of pulmonary embolism on CT scan 7. Mild thrombocytopenia The patient has a history of atrial fibrillation but has been noncompliant with medications and follow up. He presents now with atrial flutter with two-to-one conduction and acute diastolic heart failure. Blood pressure is 130/95 heart rate is ranging between 80 and 100 per minute. The patient is afebrile. Hemoglobin platelet count [id number]. Potassium 3.3 BUN22 creatinine 1.2. No evidence of DVT on venous Doppler a 2D echocardiogram is pending. The patient continues on antibiotics IV furosemide heparin protocol losartan metoprolol tartrate pantoprazole potassium protocol. The patient has been noncompliant. He was taking none of his medications when he came into hospital. He has failed to follow up in the office since his last admission. The need for compliance and follow up has been strongly reinforced. This morning heart rate has dropped he remains in AFib with a slow ventricular response. I will recommend reducing his metoprolol dose. He will continue with IV diuresis. We will monitor electrolytes. We will review his 2D echocardiogram when available. YOGESH LARA MD Jan 31, 2025 07:28
--- NOTE | 2025-01-31 09:36 | PN ---
[facility] PROGRESS NOTE Date of Service: Jan 31, 2025 Time of Service: 09:23 SUBJECTIVE: 64-year-old male with underlying history of hypertension, history of atrial fibrillation currently not on anticoagulation, history of polysubstance abuse with smoking, alcohol and prior cocaine use who presented to the ER for further evaluation of one-week history of shortness of breath. Patient reported having dyspnea on exertion and PND and orthopnea . He has been having some substernal discomfort as well. He has been having mild coughing as well. Patient denied any fevers or chills or night sweats. Shortness of breaths worsened with activity and patient is able to walk about 50-100 ft before he gets short of breath. Patient was previously hospitalized in [facility] [place] where he was found to have new onset atrial fibrillation with RVR, patient left against medical advice and reports that he is currently not on any rate control or anticoagulation. Currently smokes about 2-3 packs of cigarettes daily for about 20-30 years. Also drinks about a case of beer about three to 4 times a week. Patient has a history of cocaine use as well. On presentation to the hospital, patient was noted to be afebrile, tachycardic with heart rate in 120s-130s with atrial fibrillation with RVR, blood pressure of 147/117. Labs on presentation showed WBC count of 7900, hemoglobin 14.4, platelet count of [id number]. BMP remarkable for sodium of 141, potassium 4.1, BUN of 23,, creatinine 1.1. Chest x-ray showed bilateral infiltrates concerning for pulmonary edema with community-acquired pneumonia not ruled out. Patient will be admitted for decompensated heart failure with underlying atrial fibrillation with RVR. Consultation with Cardiology will be requested. Patient received also IV antibiotics until pneumonia is ruled out. 01/31 patient remains admitted to the PCU, sitting comfortable in the chair, sean rt oriented x3. BP 133/95, heart rate of 102, afebrile, saturating 98% on 2 L nasal cannula. CBC with a hemoglobin 14.0, hematocrit 40.7, white blood cell count 6.7, sodium 141, potassium 3.3, BUN of 22, creatinine 1.2, magnesium 1.9, liver enzymes unremarkable. Toxicology screen positive for marijuana. Serology test to include influenza and SARS antigen negative. Chest x-ray findings consistent pneumoniae, cardiomegaly, Doppler of the lower extremities no evidence of DVT, CT chest no evidence of PE, bilateral pleural effusion, bilateral basilar pneumoniae, echocardiogram pending. Cardiology input noted and appreciated, recommended reducing metoprolol dose, continue with IV diuresis. Pulmonary input noted and appreciated, continue the patient on broad- spectrum IV antibiotics with doxycycline 100 mg p.o. b.i.d. , continue Rocephin 1 g IV q.12 hours, continue CIWA protocol. Monitor for signs of withdrawal. REVIEW OF SYSTEMS CONSTITUTIONAL: Denies fevers, chills, or night sweats. No unintentional weight loss reported. NEUROLOGICAL: Denies headache, amaurosis fugax, motor weakness, sensory deficit, vertigo/spinning sensation, gait abnormalities, or tremors. ENT: No hearing loss, otalgia, otorrhea, rhinitis, rhinorrhea, hoarseness, or sore throat. CARDIOVASCULAR: Shortness of breath, dyspnea on exertion, PND, orthopnea PULMONARY: Denies any shortness of breath, cough, phlegm/sputum, hemoptysis, pleuritic chest pain. SLEEP: Denies morning headaches, daytime somnolence or napping. Denies difficulty falling asleep, staying asleep, waking from sleep. Denies knowledge of snoring. GASTROINTESTINAL: Denies any type of dysphagia to either liquids or solids. Denies nausea, vomiting, pyrosis, early satiety, abdominal pain, diarrhea, constipation, or changes in stool consistency or caliber. Denies coffee-ground emesis, hematemesis, hematochezia, or melanotic stools. GENITOURINARY: Denies frequency, urgency, nocturia, hematuria or incontinence (Storage/Irritative symptoms.) Low urinary stream, straining to void, urinary intermittency or hesitancy, splitting of the voiding stream, terminal dribbling. ENDOCRINOLOGIC: Denies polyuria, polydipsia, polyphagia or heat/cold intolerances. HEMATOLOGIC: Denies thrombophilia/previous clots, or coagulopathy/bleeding disorders. ONCOLOGIC: Denies personal history of malignancy. DERMATOLOGIC: Denies rashes or pruritus. PSYCHIATRIC: Denies any suicidal or homicidal ideation. Denies hallucinations. PHYSICAL EXAM GENERAL APPEARANCE: The patient is awake, alert, and oriented, in no acute cardiopulmonary distress. NEUROLOGICAL: Cranial nerves II-XII grossly intact. Motor is 5/5 in bilateral upper and lower extremities proximal to distal. No sensory deficits. HEENT: Face is symmetric. Pupils are equal and reactive. Extraocular movements are intact. NECK: Supple. No JVD. No thyromegaly. No submental, submandibular, pre- /postauricular, occipital or supraclavicular lymphadenopathy. CHEST: Normal chest expansion. No Telemetry. LUNGS: Crackles noted at bilateral lung bases CARDIOVASCULAR: Irregularly irregular. S1 and S2 normal. No appreciable rubs, murmurs or gallops. ABDOMEN: Soft, nontender, and nondistended. There is no rebound, voluntary guarding, or rigidity. : Deferred. No Winston. EXTREMITIES: 2+ pitting edema of the lower extremities SKIN: No skin breakdown. Vital Signs (last 8hr) Date Time Temp Pulse Resp B/P (MAP) Pulse Ox O2 Delivery O2 Flow Rate FiO2 01/31/25 07:00 98 Nasal Cannula* 2 28 01/31/25 06:57 102 20 01/31/25 06:55 102 20 N/Cannula Low lpm 2.0 28 01/31/25 03:14 98.2 83 18 133/95 97 Nasal Cannula 2.0 LABS: Laboratory: Test 01/31/25 04:11 01/30/25 17:47 01/30/25 15:15 01/30/25 13:02 Range/Units White Blood Count 6.7 4.8-10.8 K/uL Red Blood Count 4.10 L 4.50-6.20 MIL/uL Hemoglobin 14.0 14.0-18.0 g/dL Hematocrit 40.7 L 42-54 % Mean Corpuscular Volume 99.3 H 79-99 fL Mean Corpuscular Hemoglobin 34.1 H 27.0-33.0 pg Mean Corpuscular Hemoglobin Concent 34.4 32.0-36.0 g/dL Red Cell Distribution Width 14.6 11.0-15.5 % Platelet Count 140 130-400 K/uL Mean Platelet Volume 14.3 H 7.5-10.5 fL Immature Granulocyte % (Auto) 0.3 0-1 % Neutrophils (%) (Auto) 58.0 40.0-77.0 % Lymphocytes (%) (Auto) 27.1 21.0-51.0 % Monocytes (%) (Auto) 11.1 3.0-13.0 % Eosinophils (%) (Auto) 2.2 0.0-8.0 % Basophils (%) (Auto) 1.3 0.0-5.0 % Neutrophils # (Auto) 3.9 1.8-7.7 K/uL Lymphocytes # (Auto) 1.8 1.0-4.8 K/uL Monocytes # (Auto) 0.7 0.1-1.0 K/uL Eosinophils # (Auto) 0.15 0.00-0.70 K/uL Basophils # (Auto) 0.09 0.00-0.20 K/uL Absolute Immature Granulocyte (auto 0.02 0-1 K/uL Nucleated Red Blood Cells 0.0 0.0-0.19 % Activated Partial Thromboplast Time 100.3 #*H 26.3-35.5 SEC Sodium Level 141 136-145 mmol/L Potassium Level 3.3 L 3.5-5.1 mmol/L Chloride Level 106 101-111 mmol/L Carbon Dioxide Level 30 21-32 mmol/L Blood Urea Nitrogen 22 H 7-18 mg/dL Creatinine 1.2 0.5-1.3 mg/dL Glomerular Filtration Rate Calc 67 >90 mL/min Random Glucose 113 H 70-105 mg/dL Total Calcium 8.2 L 8.5-10.1 mg/dL Magnesium Level 1.90 1.80-2.40 mg/dL Total Bilirubin 1.3 #H 0.2-1.0 mg/dL Aspartate Amino Transf (AST/SGOT) 29 10-37 U/L Alanine Aminotransferase (ALT/SGPT) 33 12-78 U/L Alkaline Phosphatase 96 50-136 U/L Total Protein 6.8 6.0-8.3 g/dL Albumin 3.4 L 3.5-5.0 g/dL Prothrombin Time 11.8 H 9.6-11.6 SEC Prothromb Time International Ratio 1.13 0.85-1.15 Influenza Type A Antigen Negative For Type A NEGATIVE Influenza Type B Antigen Negative For Type B NEGATIVE SARS-CoV-2, RNA, NAAT NEGATIVE SARS CoV-2 NEGATIVE Urine Color YELLOW YELLOW Urine Appearance CLEAR CLEAR Urine pH 5.5 5.0-8.0 Urine Specific Aldie 1.024 1.001-1.031 Urine Protein 30 H NEGATIVE mg/dL Urine Glucose (UA) NEGATIVE NEGATIVE mg/dL Urine Ketones NEGATIVE NEGATIVE mg/dL Urine Occult Blood NEGATIVE NEGATIVE Urine Nitrate NEGATIVE NEGATIVE Urine Bilirubin NEGATIVE NEGATIVE mg/dL Urine Urobilinogen 3 H 0.2-1.0 mg/dL Urine Leukocyte Esterase NEGATIVE NEGATIVE Martinez/uL Urine RBC 0-1 0-1 /HPF Urine WBC 2-5 H 0-1 /HPF Urine Bacteria None None Seen /HPF Urine Opiates Screen NEGATIVE NEGATIVE Urine Barbiturates Screen NEGATIVE NEGATIVE Urine Phencyclidine Screen NEGATIVE NEGATIVE Urine Amphetamines Screen NEGATIVE NEGATIVE Urine Benzodiazepines Screen NEGATIVE NEGATIVE Urine Cocaine Screen NEGATIVE NEGATIVE Urine Marijuana (THC) Screen POSITIVE H NEGATIVE Test 01/30/25 09:51 Range/Units Erythrocyte Sedimentation Rate 4 0-20 MM/HR D-Dimer Quantitative (PE/DVT) 882 *H 0-500 ng/mL Hemoglobin A1c 5.6 4.0-6.0 % Estimated Average Glucose (eAG) 114 70-126 mg/dL Direct Bilirubin 0.6 H 0.0-0.3 mg/dL Lactate Dehydrogenase 249 H 81-234 U/L Total Creatine Kinase 146 # 21-232 U/L Troponin I High Sensitivity 41 4-75 ng/L C-Reactive Protein, Quantitative 0.80 0.5-3.0 mg/L B-Type Natriuretic Peptide 963 H 0-100 pg/mL Procalcitonin < 0.05 L 0.05-0.5 ng/mL Thyroid Stimulating Hormone (TSH) 1.97 # 0.36-3.74 uIU/mL Current Medications Medications (Trade) Dose Ordered Sig/Nataly Route PRN Reason Start Time Stop Time Status Last Admin Dose Admin Acetaminophen (TYLenol 325MG TAB) 650 mg Q6H PRN PO MILD PAIN (1-3) 01/30/25 13:00 03/01/25 12:59 Budesonide (Pulmicort 0.5 Mg/2ml) 0.5 mg BIDRESP IH 01/30/25 18:00 03/01/25 17:59 01/31/25 06:56 0.5 MG Ceftriaxone Sodium (ROCEphine 1G INJ) 1 gm Q12H IVPB 01/30/25 13:00 02/09/25 12:59 01/31/25 00:49 1 GM Chlordiazepoxide HCl (LIBrium 25 MG CAP) 25 mg Q4H PRN PO ALCOHOL WITHDRAWAL PROTOCOL 01/30/25 14:30 02/06/25 14:29 Doxycycline Hyclate (Doxycycline Hyclate) 100 mg BID PO 01/30/25 21:00 02/09/25 20:59 01/30/25 20:39 100 MG Folic Acid (FOLic ACID 1 MG TABLET) 1 mg DAILY PO 01/31/25 09:00 02/02/25 09:01 Furosemide (LASix 40MG VIAL) 40 mg Q12H IV 01/30/25 13:00 03/01/25 12:59 01/31/25 00:50 40 MG Heparin Sodium (Porcine) (HEParin 5,000 UNIT VIAL) *calculation based on ACTUAL B... AD PRN IV HEPARIN PROTOCOL 01/30/25 15:00 03/01/25 14:59 01/30/25 15:26 8,000 UNIT Heparin Sodium/ Dextrose 250 ml @ 0 mls/hr Q6H IV 01/30/25 15:00 03/01/25 14:59 01/31/25 08:56 13 MLS/HR Hydralazine HCl (APRESOLine 20MG INJ) 10 mg Q6H PRN IV ADMINISTER FOR SBP > 170 01/30/25 14:00 03/01/25 13:59 Ipratropium Carson (AtrovENT UD) 0.5 mg Q6H PRN IH SHORTNESS OF BREATH 01/31/25 06:00 03/02/25 05:59 Lorazepam (AtiVAN) 1 mg Q4H PRN IVP ALCOHOL WITHDRAWAL PROTOCOL 01/30/25 14:30 02/06/25 14:29 Losartan Potassium (CozAAR 50 mg TAB) 50 mg Q24H PO 01/30/25 14:30 03/01/25 14:29 01/30/25 14:27 50 MG Magnesium Sulfate 50 ml @ 0 mls/hr PROTOCOL IV 01/30/25 13:30 03/01/25 13:29 Metoprolol Tartrate (loprESSOR) 5 mg AD PRN IV OTHER [SEE ORDER COMMENTS] 01/30/25 14:30 01/31/25 14:29 Metoprolol Tartrate (loprESSOR) 12.5 mg BID PO 01/31/25 07:30 03/01/25 20:59 Metoprolol Tartrate (loprESSOR) 25 mg TID PO 01/30/25 21:00 01/31/25 07:30 DC 01/30/25 20:39 25 MG Multivitamins Therapeutic (Multivitamin Tablet) 1 tab DAILY PO 01/31/25 09:00 03/02/25 08:59 Nitroglycerin (Nitrostat) 0.4 mg AD PRN SL CHEST PAIN 01/30/25 13:00 03/01/25 12:59 Ondansetron HCl (zoFRAN 4MG INJ) 4 mg Q6H PRN IVP NAUSEA/VOMITING 01/30/25 13:00 03/01/25 12:59 Pantoprazole Sodium (PROTonix 40MG INJ) 40 mg Q24H IVP 01/30/25 13:00 03/01/25 12:59 01/30/25 14:02 40 MG Pharmacy Profile Note (Pharmacy Communication) 1 each PROTOCOL PRN MISC ETOH Withdrawal Score changes 01/30/25 14:30 02/06/25 14:29 Potassium Chloride 100 ml @ 100 mls/hr AD PRN IV POTASSIUM PROTOCOL 01/30/25 13:30 03/01/25 13:29 Potassium Chloride (K-Dur/Klor-Con 20meq) 20 meq AD PRN PO POTASSIUM PROTOCOL 01/30/25 13:30 03/01/25 13:29 Potassium Chloride (KCl 10% Elixir 20meq/15ml) 20 meq AD PRN PO POTASSIUM PROTOCOL 01/30/25 13:30 03/01/25 13:29 01/31/25 05:33 20 MEQ DIAGNOSTICS / RADIOLOGY: [ ] ASSESSMENT: Acute Heart failure systolic and Diastolic heart failure exacerbation, (CHADS Vasc score of at least 3),POA Acute hypoxemic respiratory failure, POA Atrial fibrillation with RVR, POA History of medical noncompliance, POA Uncontrolled hypertension, POA History of polysubstance abuse with tobacco and alcohol, POA Prior history of cocaine use, POA BPH, POA PLAN: patient remains admitted to the PCU, BP 133/95, heart rate of 102, afebrile, saturating 98% on 2 L nasal cannula. CBC with a hemoglobin 14.0, hematocrit 40.7, white blood cell count 6.7, sodium 141, potassium 3.3, BUN of 22, creatinine 1.2, magnesium 1.9, liver enzymes unremarkable. Toxicology screen positive for marijuana. Serology test to include influenza and SARS antigen negative. Chest x-ray findings consistent pneumoniae, cardiomegaly, Doppler of the lower extremities no evidence of DVT, CT chest no evidence of PE, bilateral pleural effusion, bilateral basilar pneumoniae, echocardiogram pending. Cardiology input noted and appreciated, recommended reducing metoprolol dose, continue with IV diuresis. Pulmonary input noted and appreciated, continue the patient on broad-spectrum IV antibiotics with doxycycline 100 mg p.o. b.i.d. , continue Rocephin 1 g IV q.12 hours, continue CIWA protocol. Monitor for signs of withdrawal. NEURO: Minimize central acting medications as possible. Fall Precautions. Well lighted room through the day and minimize interruptions through the night to prevent acute delirium. PULMONARY: Supplemental 02 as needed BiPAP as necessary, for respiratory distress Titrate Fio2 to keep Spo2 > or = 90% DuoNebs and CPT as needed IS hourly while awake for pulmonary hygiene prn Out of bed to chair as tolerated Maintain aspiration precautions at all times CARDIOVASCULAR: Follow hemodynamics. Vital signs per facility protocol GI & NUTRITION: Continue nutritional support Aspirations precautions Prokinetic agents and laxatives as needed KIDNEYS & ELECTROLYTES: Strict monitoring of intake and output Daily weights Avoid nephrotoxic agents Monitor electrolytes and replace as needed Goal urine output of 30mL/hr or 0.5mL/kg/hr Medications to be dosed according to renal function. Avoid contrast if possible ENDOCRINE: Maintain blood glucose between 100-180 at all times. Insulin sliding scale for blood glucose management Hypoglycemia and hyperglycemia protocol in place INFECTIOUS DISEASE: Trend temperature, WBC and procalcitonin level Follow cultures, deescalate antibiotics as soon as possible. Panculture if new onset fever HEMATOLOGY & COAGULATION: Monitor H&H. Keep Hgb > 7 Transfuse 1 unit of PRBC for Hgb < 7 Transfuse 1 pack of platelets of platelets < 20, 000 Watch for any signs and symptoms of bleeding SKIN: Pressure ulcer prevention per facility protocol Specialty mattress as needed ORTHO/REHAB Continue PT/OT PRN: MEDICATIONS Tylenol 650 mg po every 4 hrs for fever zofran 4 mg IV every 6 hrs for n/v Hydralazine 5 mg IV every 4 hrs systolic pressure > 160 bowel regiment: lactulose 20 gm PO BID PRN constipation Supportive measures: Continue GI and DVT prophylaxis Disposition: Pending improvement in clinical condition All questions answered time spent: > 35 min FIFI HOROWITZ MD Jan 31, 2025 09:36
[2025-01-31] MEDS: FOLic ACID 1 MG TABLET PO SCH (09:40)
[2025-01-31] MEDS: MULTIVITAMIN TABLET PO SCH (09:41)
[2025-01-31] MEDS: metoPROLOL tartRATE 25 MG TAB PO SCH (09:42)
--- NOTE | 2025-01-31 11:19 | HMCIMG ---
Findings: No fluid collections or masses are seen. Significantly, there is no evidence of hematoma. No increased fluid throughout the visualized tissue planes is identified. No lymphadenopathy is identified. Impression: No evidence of hematoma or fluid collections or other abnormalities.
[2025-01-31 12:18] LABS: INR 1.09 (0.85-1.15); PROTHROMBIN TIME 11.5 SEC (9.6-11.6)
[2025-01-31 12:19] LABS: PARTIAL THROMBOPLASTIN TIME 56.4 SEC (26.3-35.5)
--- NOTE | 2025-01-31 15:20 | HMCSR ---
APPROVED REPORT EXAM: Two-dimensional and M-mode echocardiogram with Doppler and color Doppler. INDICATION ICD: Assess for heart failure, atrial fibrillation with rapid ventricular response 2D Dimensions RVDd5.4 cmLVEF(%)22.9 (>50%)LVED Vol(simp.)197.0 mL IVSd1.1 (0.7-1.1cm)FS(%)11 %LVES Vol(simp.)150.0 mL LVDd5.9 (3.8-5.6cm)LA (2D)5.8 (1.6-4.0cm)LVEF(%, simp.)24 % PWd1.1 (0.7-1.1cm)Ao Root(2D)3.5 (2.0-3.7cm)LA ESV INDEX (BP)58.50 mL/m2 IVSs1.2 cmLVOT diam2.5 (1.8-2.4cm) LVDs5.2 (2.5-4.0cm)IVC diam3.4 cm PWs1.4 cm Deformation Strain Apical 4-3.5 % Apical 2-6.1 % Apical 3-4.6 % Global Strain-4.7 % M-Mode Dimensions EPSS1.5 cm LA (MM)6.1 (1.6-4.0cm) Ao Root(MM)3.4 (2.0-3.7cm) Aortic Valve AoV Vmax1.2 m/Reji Peak GR5.4 mmHgLVOT Vmax0.8 m/s AoV VTI0.2 mAo Mean GR3.3 mmHgLVOT VTI0.12 m SONYA (VMAX)3.25 cm2AVA (VTI) 3.2 cm2 Mitral Valve MV E Fxxk599.4 cm/sDECEL Time99 ms MV A Vmax66.4 cm/sP 1/2 T58 ms E/A ratio1.9MVA (PHT)3.8 cm2 TDI E/E' Xddgbx30.1E/E' Xvmwkdi90.4 Medial E' Peak V4.54 cm/sLateral E' Peak V4.49 cm/s Pulmonary Valve PV Vmax0.7 m/sPV VTI0.15 mPV Mean GR1.2 mmHg PV Peak GR2.2 mmHgPI End Eden. Mukesh 140.3 cm/s Tricuspid Valve TR Vmax2.5 m/sRAP (EST) -15 tuEjOCXW09.0 mmHg TR Peak GR27.0 mmHg Left Ventricle The left ventricle is dilated. There is global hypokinesis of the left ventricle. GLS -5.0%. There is normal left ventricular wall thickness. LVEF is 20-25%. 3D volume EF 22%. The LV diastolic function was unable to be assessed due to atrial arrhythmia. Right Ventricle The right ventricle is severely dilated. Right ventricular systolic function is severely reduced. RV FAC 8%. Atria The left atrium is severely dilated. LASVI 59mL/m. Negative bubble study. No evidence of PFO/ASD by agitated saline. Severely dilated in right atrium. Aortic Valve The aortic valve is normal in structure. Mild aortic regurgitation is present. There is no aortic mya vular stenosis. Mitral Valve The mitral valve is normal in structure. There is mild mitral valve regurgitation noted. There is no mitral valve stenosis. Tricuspid Valve The tricuspid valve is normal in structure. There is mild tricuspid valve regurgitation noted. Pulmonic Valve The pulmonary valve is normal in structure. There is mild pulmonic valvular regurgitation. Great Vessels The aortic root is normal in size. IVC is dilated and collapses <50% with inspiration. Pericardium There is no pericardial effusion. Other Information Quality : AdequateRhythm : Atrial Fibrillation Conclusion The left ventricle is dilated. There is global hypokinesis of the left ventricle. LVEF is 20-25%. 3D volume EF 22%. The LV diastolic function was unable to be assessed due to atrial arrhythmia. Severe biatrial enlargement The right ventricle is dilated with reduced systolic function. RV FAC 8% Mild aortic regurgitation. Mild mitral regurgitation. Mild tricuspid regurgitation. Mild pulmonic regurgitation. Negative bubble study.
--- NOTE | 2025-01-31 15:30 | NUR ---
MET W PATIENT AND BROTHER AT BEDSIDE FOR DC PLANNING PATIENT STATES HE LIVES WITH HIS 'EX ' .WHEN ASKED, ADMITS THEY ARE STILL , BUT 'SHE DOES NOT WANT TO LEAVE' THE MATRIMONIAL HOME AND NEITHER DOES HE, STATES HE 'DOES NOT THINK OF HER HIS SPOUSE ANYMORE' STATES HE IS INDEPENDENT, DRIVES HIMSELF TO APPOINTMENTS AND USES ONLY A CANE AT TIMES TO AMBULATE. HOME HAS 3 STEPS WITH [employer]AN[employer], AT TIMES HE FINDS IT DIFFICULT TO CLIMB STAIRS.NO OTHER DME OR DEFICITS... HAS 'ABOUT 20 HR/WK' OF PROVIDER SERVICES. STATES NEEDS MORE ASSISTANCE. CANNOT PUT HIS SOCKS AND SHOES ON. ADVISED TO CALL HIS PROVIDER AGENCY ON DISCHARGE TO BE RE EVALUATED. PHONE NUMBERS /CONTACTS CONFIRMED, PT ADVISED THAT MAKING A MEDICAL POWER OF RESEARCH INVESTIGATOR ( [employer]PO[employer]) IS ADVISABLE IN HIS CIRCUMSTANCES. WILL PLACE SW CONSULT FOR SAME. WILL OBTAINED PT EVAL TO HELP WITH PROVIDER SERVICES RE EVAL. NO OTHER DC NEEDS ANTICIPATED Addendum: 01/31/25 at 1801 by AISSATOU ALLRED RN CM Amended: Links added.
--- NOTE | 2025-01-31 17:52 | PN ---
[facility] PROGRESS NOTE Date Patient Seen: Jan 31, 2025 Time of Visit: 17:50 Supervising Physician: Dr. Parada Primary Care Physician: Dr. Ochoa Serrato Outpatient Specialists: [ ] Inpatient Consults: PROBLEM LIST: 1. Acute hypoxemic respiratory failure -requiring supplemental oxygen 2. Acute diastolic and systolic heart failure (awaiting echocardiogram results) 3. Atrial fibrillation with RVR, POA -[id number] score of 2per Cardiology consult patient is started heparin drip 4. 50 year pack smoker, recently quit 5. Polysubstance abuse: Positive THC -previous admission positive for cocaine 6. Alcohol abuse -patient reports drinking case of beer three to 4 times a week 7. Hypertension, uncontrolled 8. Medication noncompliance INTERVAL HISTORY: 01/31/2025: At the time of my evaluation, the patient lying in bed. The staff nurse reports no acute events overnight. The patient reports feeling much better today. Vital signs showed oxygen supplementation via nasal cannula with optimal oxygen saturation and remaining parameters are unremarkable. Laboratory data in unremarkable except for a slightly low potassium of 3.3. Microbiology data showing GPC in sputum. Imaging of the chest was negative for PE. The patient continue on diuretic therapy and metoprolol for rate control. No other complaint. REVIEW OF SYSTEMS: 12 point ROS reviewed with patient. Pertinent positives mentioned above. Otherwise negative. PHYSICAL EXAM: GENERAL: Alert, weak, awake oriented x 3 HEENT: EOMI, Sclera non icteric, moist mucosa NECK: Supple, no JVD, trachea midline LUNGS: Clear breath sounds bilaterally. No wheezes HEART: Irregular rate, accelerated rhythm, atrial fib, no murmur ABD: Abdomen tense, distended, Bowel sounds present EXT: Clubbing bilateral lower extremities, pitting dependent edema, NEURO: Alert and oriented to person, follows commands Vital Signs (last 8hr) Date Time Temp Pulse Resp B/P (MAP) Pulse Ox O2 Delivery O2 Flow Rate FiO2 01/31/25 16:00 97.7 89 19 168/108 94 Nasal Cannula 2.0 01/31/25 12:00 97.5 94 19 138/96 93 Nasal Cannula 2.0 LABS: Hematology Labs: Test 01/31/25 04:11 01/30/25 09:51 Range/Units White Blood Count 6.7 4.8-10.8 K/uL Red Blood Count 4.10 L 4.50-6.20 MIL/uL Hemoglobin 14.0 14.0-18.0 g/dL Hematocrit 40.7 L 42-54 % Mean Corpuscular Volume 99.3 H 79-99 fL Mean Corpuscular Hemoglobin 34.1 H 27.0-33.0 pg Mean Corpuscular Hemoglobin Concent 34.4 32.0-36.0 g/dL Red Cell Distribution Width 14.6 11.0-15.5 % Platelet Count 140 130-400 K/uL Mean Platelet Volume 14.3 H 7.5-10.5 fL Immature Granulocyte % (Auto) 0.3 0-1 % Neutrophils (%) (Auto) 58.0 40.0-77.0 % Lymphocytes (%) (Auto) 27.1 21.0-51.0 % Monocytes (%) (Auto) 11.1 3.0-13.0 % Eosinophils (%) (Auto) 2.2 0.0-8.0 % Basophils (%) (Auto) 1.3 0.0-5.0 % Neutrophils # (Auto) 3.9 1.8-7.7 K/uL Lymphocytes # (Auto) 1.8 1.0-4.8 K/uL Monocytes # (Auto) 0.7 0.1-1.0 K/uL Eosinophils # (Auto) 0.15 0.00-0.70 K/uL Basophils # (Auto) 0.09 0.00-0.20 K/uL Absolute Immature Granulocyte (auto 0.02 0-1 K/uL Nucleated Red Blood Cells 0.0 0.0-0.19 % Erythrocyte Sedimentation Rate 4 0-20 MM/HR Chemistry Labs: Test 01/31/25 04:11 01/30/25 09:51 Range/Units Sodium Level 141 136-145 mmol/L Potassium Level 3.3 L 3.5-5.1 mmol/L Chloride Level 106 101-111 mmol/L Carbon Dioxide Level 30 21-32 mmol/L Blood Urea Nitrogen 22 H 7-18 mg/dL Creatinine 1.2 0.5-1.3 mg/dL Glomerular Filtration Rate Calc 67 >90 mL/min Random Glucose 113 H 70-105 mg/dL Total Calcium 8.2 L 8.5-10.1 mg/dL Magnesium Level 1.90 1.80-2.40 mg/dL Total Bilirubin 1.3 #H 0.2-1.0 mg/dL Aspartate Amino Transf (AST/SGOT) 29 10-37 U/L Alanine Aminotransferase (ALT/SGPT) 33 12-78 U/L Alkaline Phosphatase 96 50-136 U/L Total Protein 6.8 6.0-8.3 g/dL Albumin 3.4 L 3.5-5.0 g/dL Hemoglobin A1c 5.6 4.0-6.0 % Estimated Average Glucose (eAG) 114 70-126 mg/dL Direct Bilirubin 0.6 H 0.0-0.3 mg/dL Lactate Dehydrogenase 249 H 81-234 U/L Total Creatine Kinase 146 # 21-232 U/L Troponin I High Sensitivity 41 4-75 ng/L C-Reactive Protein, Quantitative 0.80 0.5-3.0 mg/L B-Type Natriuretic Peptide 963 H 0-100 pg/mL Procalcitonin < 0.05 L 0.05-0.5 ng/mL Thyroid Stimulating Hormone (TSH) 1.97 # 0.36-3.74 uIU/mL Coagulation Labs: Test 01/31/25 12:01 01/30/25 09:51 Range/Units Prothrombin Time 11.5 9.6-11.6 SEC Prothromb Time International Ratio 1.09 0.85-1.15 Activated Partial Thromboplast Time 56.4 #H 26.3-35.5 SEC D-Dimer Quantitative (PE/DVT) 882 *H 0-500 ng/mL DIAGNOSTICS / RADIOLOGY RESULTS: [ ] PLAN 01/31/2025: For now, we are going to continue current management for the patient. We are going to continue diuretic therapy as ordered. Per Cardiology, decrease metoprolol due to excessive rate slowing. We are going to continue to correct electrolyte imbalance. We will repeat labs in a.m. I discussed the findings and plan for further management with the patient. Also addressed the importance of medication compliance. We will monitor the patient's progress and response to management. We will continue to provide general supportive care, GI and DVT prophylaxis. Further orders per attending MD and hospital course. NEURO: Minimize central acting medications as possible. Maintain fall precautions, adequate lighting during the day PULMONARY: Supplemental 02 as needed. Maintain aspiration precautions at all times Humidified oxygen Albuterol breathing treatments Pulmicort q.12 hours CARDIOVASCULAR: Follow hemodynamics. Vital signs per facility protocol GI & NUTRITION: Continue with nutritional support. Continue stool softeners and laxatives as needed. KIDNEYS & ELECTROLYTES: Strict monitoring of intake, output and overall fluid balance. Avoid nephrotoxic medications to the extent possible. Medications to be dosed according to renal function. Monitor electrolytes and replace as needed ENDOCRINE: Maintain blood glucose between 100-180 at all times. Hypoglycemia protocol in place Sliding scale insulin INFECTIOUS DISEASE: Trend temperature, WBC and procalcitonin level Follow cultures, deescalate antibiotics as soon as possible. Panculture if new onset fever Treating patient prophylactically doxycycline 100 mg p.o. b.i.d. ONCOLOGY/HEMATOLOGY/COAGULATION: Monitor for s/s of bleeding Monitor hemoglobin, coagulation studies as needed SKIN: Pressure ulcer prevention per facility protocol Specialty mattress ORTHO/REHAB: Continue PT/OT Prophylaxis: Continue GI and DVT prophylaxis Code Status: Full Resuscitation Disposition: TBD Other: Patient was seen and case discussed with giovanni [facility]. Plan of care was discussed and agreed upon. LUIS MARTIN NP Jan 31, 2025 17:52
[2025-01-31 18:01] LABS: INR 1.07 (0.85-1.15); PROTHROMBIN TIME 11.3 SEC (9.6-11.6)
[2025-01-31 18:02] LABS: PARTIAL THROMBOPLASTIN TIME 60.5 SEC (26.3-35.5)
[2025-02-01] VITALS (14 sets, daily range): BP systolic 128–172; BP diastolic 78–119; PULSE 68–135; RESP 18–26; TEMP 97.4–98; O2SAT 94–97
[2025-02-01 04:12] LABS: MEAN CORPUSCULAR HEMOGLOBIN 33.8 pg (27.0-33.0); MEAN CORPUSCULAR HGB CONC 33.8 g/dL (32.0-36.0); RED CELL DISTRIBUTION WIDTH 14.6 % (11.0-15.5); WHITE BLOOD COUNT (AUTO) 6.1 K/uL (4.8-10.8)
[2025-02-01 04:27] LABS: ALBUMIN 3.1 g/dL (3.5-5.0); BILIRUBIN,TOTAL 1.1 mg/dL (0.2-1.0); CREATININE 0.9 mg/dL (0.5-1.3); MAGNESIUM 1.9 mg/dL (1.80-2.40); POTASSIUM 3.4 mmol/L (3.5-5.1); TOTAL PROTEIN, SERUM 6.4 g/dL (6.0-8.3)
[2025-02-01] MEDS: metoPROLOL tartRATE 1 MG/ML 5ML VIAL IV ONE (04:35)
--- NOTE | 2025-02-01 04:35 | NUR ---
AFIB RVR HR 130'S HR AFIB RVR HR SUSTAINING 130'S AFTER AMBULATING TO RESTROOM, DENIES CHEST PAIN, BP 150/70, LOPRESSOR 5 MG IVP GIVEN ORDERED BY DR. Edmund SEPULVEDA
--- NOTE | 2025-02-01 04:45 | NUR ---
MEDICATION RESPONSE AFIB HR 104, DENIES CHEST PAIN
--- NOTE | 2025-02-01 06:00 | NUR ---
DAILY WEIGHT PT ON STRICT BEDREST RIGHT NOW, UNABLE TO WEIGH PT DUE TO EARLIER EPISODE OF AFIB RVR Addendum: 02/01/25 at 0608 by GRAHAM FRANCIS RN RN Amended: Links added.
[2025-02-01] MEDS: hydrALAZine 20MG/ML VIAL IV PRN (08:32)
[2025-02-01] MEDS: MAGNESIUM 2GM PREMIX 50ML 50 ML IV SCH (08:34)
--- NOTE | 2025-02-01 09:43 | PN ---
[facility] CARDIOLOGY PROGRESS NOTE Date Patient Seen: Feb 01, 2025 Time of Visit: 09:34 Interval History: [a-fib RVR this am to 130s ] Physical Examination: GENERAL: [No acute distress.] HEAD: [Normal with no signs of head trauma.] EYES: [PERRLA, EOMI, conjunctiva and sclera normal.] ENT: [Hearing grossly intact, normal oropharynx.] NECK: [Supple without JVD. There is no tenderness, lymphadenopathy, or masses. No thyromegaly. Normal carotid upstrokes without bruits.] LUNGS: [rales bilaterally] HEART: [irregular rate and rhythm. Normal S1 and S2 without mumurs, gallop or rub.] VASC: [Peripheral pulses +2 bilaterally.] ABD: [Bowel sounds normal, soft, nontender, no masses, no organomegaly. No audible bruits.] : [Not examined] LYMPH: [No lymphadenopathy noted.] EXT: [No clubbing, cyanosis or edema.] SKIN: [No rashes or lesions noted.] NEURO: [Awake, alert, and oriented x3. No focal sensory or strength deficits noted.] Laboratory: [ ] Hematology Labs: Test 02/01/25 03:39 01/31/25 04:11 01/30/25 09:51 Range/Units White Blood Count 6.1 4.8-10.8 K/uL Red Blood Count 4.00 L 4.50-6.20 MIL/uL Hemoglobin 13.5 L 14.0-18.0 g/dL Hematocrit 40.0 L 42-54 % Mean Corpuscular Volume 100.0 H 79-99 fL Mean Corpuscular Hemoglobin 33.8 H 27.0-33.0 pg Mean Corpuscular Hemoglobin Concent 33.8 32.0-36.0 g/dL Red Cell Distribution Width 14.6 11.0-15.5 % Platelet Count 126 L 130-400 K/uL Mean Platelet Volume 14.0 H 7.5-10.5 fL Nucleated Red Blood Cells 0.0 0.0-0.19 % Immature Granulocyte % (Auto) 0.3 0-1 % Neutrophils (%) (Auto) 58.0 40.0-77.0 % Lymphocytes (%) (Auto) 27.1 21.0-51.0 % Monocytes (%) (Auto) 11.1 3.0-13.0 % Eosinophils (%) (Auto) 2.2 0.0-8.0 % Basophils (%) (Auto) 1.3 0.0-5.0 % Neutrophils # (Auto) 3.9 1.8-7.7 K/uL Lymphocytes # (Auto) 1.8 1.0-4.8 K/uL Monocytes # (Auto) 0.7 0.1-1.0 K/uL Eosinophils # (Auto) 0.15 0.00-0.70 K/uL Basophils # (Auto) 0.09 0.00-0.20 K/uL Absolute Immature Granulocyte (auto 0.02 0-1 K/uL Erythrocyte Sedimentation Rate 4 0-20 MM/HR Chemistry Labs: Test 02/01/25 03:39 01/30/25 09:51 Range/Units Sodium Level 140 136-145 mmol/L Potassium Level 3.4 L 3.5-5.1 mmol/L Chloride Level 106 101-111 mmol/L Carbon Dioxide Level 31 21-32 mmol/L Blood Urea Nitrogen 19 H 7-18 mg/dL Creatinine 0.9 0.5-1.3 mg/dL Glomerular Filtration Rate Calc 94 >90 mL/min Random Glucose 99 70-105 mg/dL Total Calcium 8.4 L 8.5-10.1 mg/dL Magnesium Level 1.90 1.80-2.40 mg/dL Total Bilirubin 1.1 H 0.2-1.0 mg/dL Aspartate Amino Transf (AST/SGOT) 25 10-37 U/L Alanine Aminotransferase (ALT/SGPT) 29 12-78 U/L Alkaline Phosphatase 99 50-136 U/L Total Protein 6.4 6.0-8.3 g/dL Albumin 3.1 L 3.5-5.0 g/dL Hemoglobin A1c 5.6 4.0-6.0 % Estimated Average Glucose (eAG) 114 70-126 mg/dL Direct Bilirubin 0.6 H 0.0-0.3 mg/dL Lactate Dehydrogenase 249 H 81-234 U/L Total Creatine Kinase 146 # 21-232 U/L Troponin I High Sensitivity 41 4-75 ng/L C-Reactive Protein, Quantitative 0.80 0.5-3.0 mg/L B-Type Natriuretic Peptide 963 H 0-100 pg/mL Procalcitonin < 0.05 L 0.05-0.5 ng/mL Thyroid Stimulating Hormone (TSH) 1.97 # 0.36-3.74 uIU/mL Coagulation Labs: Test 01/31/25 17:37 01/30/25 09:51 Range/Units Prothrombin Time 11.3 9.6-11.6 SEC Prothromb Time International Ratio 1.07 0.85-1.15 Activated Partial Thromboplast Time 60.5 H 26.3-35.5 SEC D-Dimer Quantitative (PE/DVT) 882 *H 0-500 ng/mL Diagnostics / Radiology: [Copy/Paste Echos/Imaging Report here] Impression and Plan: [Problems: 1. Acute on chronic diastolic and systolic heart failure with dilated cardiomyopathy 2. Atrial flutter with two-to-one conduction 3. History of paroxysmal atrial fibrillation not on anticoagulation due to noncompliance 4. Hypertension 5. Polysubstance abuse with cocaine marijuana alcohol and tobacco 6. Elevated D-dimer with no evidence of pulmonary embolism on CT scan 7. Mild thrombocytopenia # Atrial flutter with two-to-one conduction and now a-fib -The patient has a history of atrial fibrillation but has been noncompliant with medications and follow up. - 2D echocardiogram with LVEF 20-25% and LV dilated. -heparin gtt for elevated [id number] -01/31 in the morning heart rate has dropped he remains in AFib with a slow ventricular response, so metoprolol was reduced to 12.5 mg bid. However, this AM he developed HR 130s. #Acute on chronic diastolic and systolic heart failure with dilated cardiomyopathy -lasix 40 mg IV bid, will increase lasix to q8h as CXR worsening opacities. Legionella + urine culture -c/w metoprolol 12.5 mg bid and losartan 50 mg qd Jenifer Yanez MD ] JENIFER YANEZ MD Feb 01, 2025 09:43
--- NOTE | 2025-02-01 10:00 | NUR ---
OUT OF BED COMING BACK FROM BATHROOM, NOTED SHORT OF BREATH AND TACHYPNEIC. ASSISTED BACK TO BED, RE-APPLIED O2 AT 4LNC. CRACKLES NOTED UPON AUSCULTATION. TELEMETRY READING ATRIAL FIB HR 110'S. O2 SAT 92%. INFORMED DR. HOROWITZ...ORDERED STAT CHEST XRAY, ABG'S AND 40MG IV LASIX.
--- NOTE | 2025-02-01 10:45 | NUR ---
ABG RESULTS REVIEWED BY DR. HOROWITZ. NO FURTHER ORDERS AND WILL CONTINUE TO MONITOR.
[2025-02-01 10:48] LABS: ABG BASE EXCESS -3.4 mmol/L (-2.0-3.0); ABG HCO3 19.4 mmol/L (21.0-28.0); ABG OXYGEN SATURATION 97.8 % (94.0-98.0); ABG PCO2 29 mmHg (35-48); ABG PH 7.438 (7.350-7.450); PO2, ARTERIAL BG 99.9 mmHg (83.0-108.0); VENT MODE, BG 4LNC (ROOM AIR)
--- NOTE | 2025-02-01 10:53 | PN ---
[facility] PROGRESS NOTE Date of Service: Feb 01, 2025 Time of Service: 10:49 SUBJECTIVE: 64-year-old male with underlying history of hypertension, history of atrial fibrillation currently not on anticoagulation, history of polysubstance abuse with smoking, alcohol and prior cocaine use who presented to the ER for further evaluation of one-week history of shortness of breath. Patient reported having dyspnea on exertion and PND and orthopnea . He has been having some substernal discomfort as well. He has been having mild coughing as well. Patient denied any fevers or chills or night sweats. Shortness of breaths worsened with activity and patient is able to walk about 50-100 ft before he gets short of breath. [place] [facility] [place] where he was found to have new onset atrial fibrillation with RVR, patient left against medical advice and reports that he is currently not on any rate control or anticoagulation. Currently smokes about 2-3 packs of cigarettes daily for about 20-30 years. Also drinks about a case of beer about three to 4 times a week. Patient has a history of cocaine use as well. On presentation to the hospital, patient was noted to be afebrile, tachycardic with heart rate in 120s-130s with atrial fibrillation with RVR, blood pressure of 147/117. Labs on presentation showed WBC count of 7900, hemoglobin 14.4, platelet count of 419338. BMP remarkable for sodium of 141, potassium 4.1, BUN of 23,, creatinine 1.1. Chest x-ray showed bilateral infiltrates concerning for pulmonary edema with community-acquired pneumonia not ruled out. Patient will be admitted for decompensated heart failure with underlying atrial fibrillation with RVR. Consultation with Cardiology will be requested. Patient received also IV antibiotics until pneumonia is ruled out. 01/31 patient remains admitted to the PCU, sitting comfortable in the chair, sean rt oriented x3. BP 133/95, heart rate of 102, afebrile, saturating 98% on 2 L nasal cannula. He remains on heparin drip CBC with a hemoglobin 14.0, hematocrit 40.7, white blood cell count 6.7, sodium 141, potassium 3.3, BUN of 22, creatinine 1.2, magnesium 1.9, liver enzymes unremarkable. Toxicology screen positive for marijuana. Serology test to include influenza and SARS anti gen negative. Chest x-ray findings consistent pneumoniae, cardiomegaly, Doppler of the lower extremities no evidence of DVT, CT chest no evidence of PE, bilateral pleural effusion, bilateral basilar pneumoniae, echocardiogram pending. Cardiology input noted and appreciated, recommended reducing metoprolol dose, continue with IV diuresis. Pulmonary input noted and appreciated, continue the patient on broad-spectrum IV antibiotics with doxycycline 100 mg p.o. b.i.d. , continue Rocephin 1 g IV q.12 hours, continue CIWA protocol. Monitor for signs of withdrawal. 02/01 patient remains admitted to the PCU, he is sitting in the bed, watching TV, blood pressure 149/104, afebrile, he is saturating 984 through 95% on 2 L nasal cannula. He remains on heparin drip Feels mildly short of breath. No chest pain. Hemoglobin today 13.5, hematocrit 40.0, WBC 6.1, platelet count of 126. Sodium 140, potassium 3.4, BUN of 19, creatinine 0.9. Ultrasound soft tissue of the neck done yesterday as the patient with prominent left external jugular vein was unremarkable. No evidence of hematoma or fluid collection or other abnormalities. Echocardiogram reported as follows Conclusion The left ventricle is dilated. There is global hypokinesis of the left ventricle. LVEF is 20-25%. 3D volume EF 22%. The LV diastolic function was unable to be assessed due to atrial arrhythmia. Severe biatrial enlargement The right ventricle is dilated with reduced systolic function. RV FAC 8% Mild aortic regurgitation. Mild mitral regurgitation. Mild tricuspid regurgitation. Mild pulmonic regurgitation. Negative bubble study. Upon my physical examination, patient alert oriented x3, bibasilar crackles noted, chest x-ray, ABG requested, patient is scheduled to receive furosemide 40 mg IV at 1:00 p.m., we will give it now. We will continue closely monitoring of the patient. REVIEW OF SYSTEMS CONSTITUTIONAL: Denies fevers, chills, or night sweats. No unintentional weight loss reported. NEUROLOGICAL: Denies headache, amaurosis fugax, motor weakness, sensory deficit, vertigo/spinning sensation, gait abnormalities, or tremors. ENT: No hearing loss, otalgia, otorrhea, rhinitis, rhinorrhea, hoarseness, or sore throat. CARDIOVASCULAR: Shortness of breath, dyspnea on exertion, PND, orthopnea PULMONARY: Denies any shortness of breath, cough, phlegm/sputum, hemoptysis, pleuritic chest pain. SLEEP: Denies morning headaches, daytime somnolence or napping. Denies difficulty falling asleep, staying asleep, waking from sleep. Denies knowledge of snoring. GASTROINTESTINAL: Denies any type of dysphagia to either liquids or solids. D enies nausea, vomiting, pyrosis, early satiety, abdominal pain, diarrhea, constipation, or changes in stool consistency or caliber. Denies coffee-ground emesis, hematemesis, hematochezia, or melanotic stools. GENITOURINARY: Denies frequency, urgency, nocturia, hematuria or incontinence (Storage/Irritative symptoms.) Low urinary stream, straining to void, urinary intermittency or hesitancy, splitting of the voiding stream, terminal dribbling. ENDOCRINOLOGIC: Denies polyuria, polydipsia, polyphagia or heat/cold intolerances. HEMATOLOGIC: Denies thrombophilia/previous clots, or coagulopathy/bleeding disorders. ONCOLOGIC: Denies personal history of malignancy. DERMATOLOGIC: Denies rashes or pruritus. PSYCHIATRIC: Denies any suicidal or homicidal ideation. Denies hallucinations. PHYSICAL EXAM GENERAL APPEARANCE: The patient is awake, alert, and oriented, in no acute cardiopulmonary distress. NEUROLOGICAL: Cranial nerves II-XII grossly intact. Motor is 5/5 in bilateral upper and lower extremities proximal to distal. No sensory deficits. HEENT: Face is symmetric. Pupils are equal and reactive. Extraocular movements are intact. NECK: Supple. No JVD. No thyromegaly. No submental, submandibular, pre- /postauricular, occipital or supraclavicular lymphadenopathy. CHEST: Normal chest expansion. No Telemetry. LUNGS: Crackles, no wheeze CARDIOVASCULAR: Irregularly irregular. S1 and S2 normal. No appreciable rubs, murmurs or gallops. ABDOMEN: Soft, nontender, and nondistended. There is no rebound, voluntary guarding, or rigidity. : Deferred. No Winston. EXTREMITIES: 2+ pitting edema of the lower extremities SKIN: No skin breakdown. Vital Signs (last 8hr) Date Time Temp Pulse Resp B/P (MAP) Pulse Ox O2 Delivery O2 Flow Rate FiO2 02/01/25 07:04 75 19 02/01/25 07:03 75 19 N/Cannula Low lpm 2.0 28 02/01/25 07:00 98.1 82 25 149/104 Nasal Cannula 2.0 02/01/25 04:35 130 150/70 02/01/25 04:00 97.5 131 18 159/119 94 Nasal Cannula 2.0 LABS: Laboratory: Test 02/01/25 10:46 02/01/25 03:39 01/31/25 17:37 01/31/25 04:11 Range/Units Blood Gas Specimen Type Arterial Arterial Blood pH 7.438 7.350-7.450 Arterial Blood Partial Pressure CO2 29 L 35-48 mmHg Arterial Blood Partial Pressure O2 99.9 83.0-108.0 mmHg Arterial Blood HCO3 19.4 L 21.0-28.0 mmol/L Arterial Blood Oxygen Saturation 97.8 94.0-98.0 % Arterial Blood Base Excess -3.4 L -2.0-3.0 mmol/L Blood Gas Temperature 37.0 35.5-37.0 CELSIUS Blood Gas Flow-by 4.00 0.00-15.00 L/min Blood Gas Vent Mode 4LNC ROOM AIR FiO2 36.0 % Blood Gas Specimen Comment RR CANDICE White Blood Count 6.1 4.8-10.8 K/uL Red Blood Count 4.00 L 4.50-6.20 MIL/uL Hemoglobin 13.5 L 14.0-18.0 g/dL Hematocrit 40.0 L 42-54 % Mean Corpuscular Volume 100.0 H 79-99 fL Mean Corpuscular Hemoglobin 33.8 H 27.0-33.0 pg Mean Corpuscular Hemoglobin Concent 33.8 32.0-36.0 g/dL Red Cell Distribution Width 14.6 11.0-15.5 % Platelet Count 126 L 130-400 K/uL Mean Platelet Volume 14.0 H 7.5-10.5 fL Nucleated Red Blood Cells 0.0 0.0-0.19 % Sodium Level 140 136-145 mmol/L Potassium Level 3.4 L 3.5-5.1 mmol/L Chloride Level 106 101-111 mmol/L Carbon Dioxide Level 31 21-32 mmol/L Blood Urea Nitrogen 19 H 7-18 mg/dL Creatinine 0.9 0.5-1.3 mg/dL Glomerular Filtration Rate Calc 94 >90 mL/min Random Glucose 99 70-105 mg/dL Total Calcium 8.4 L 8.5-10.1 mg/dL Magnesium Level 1.90 1.80-2.40 mg/dL Total Bilirubin 1.1 H 0.2-1.0 mg/dL Aspartate Amino Transf (AST/SGOT) 25 10-37 U/L Alanine Aminotransferase (ALT/SGPT) 29 12-78 U/L Alkaline Phosphatase 99 50-136 U/L Total Protein 6.4 6.0-8.3 g/dL Albumin 3.1 L 3.5-5.0 g/dL Prothrombin Time 11.3 9.6-11.6 SEC Prothromb Time International Ratio 1.07 0.85-1.15 Activated Partial Thromboplast Time 60.5 H 26.3-35.5 SEC Immature Granulocyte % (Auto) 0.3 0-1 % Neutrophils (%) (Auto) 58.0 40.0-77.0 % Lymphocytes (%) (Auto) 27.1 21.0-51.0 % Monocytes (%) (Auto) 11.1 3.0-13.0 % Eosinophils (%) (Auto) 2.2 0.0-8.0 % Basophils (%) (Auto) 1.3 0.0-5.0 % Neutrophils # (Auto) 3.9 1.8-7.7 K/uL Lymphocytes # (Auto) 1.8 1.0-4.8 K/uL Monocytes # (Auto) 0.7 0.1-1.0 K/uL Eosinophils # (Auto) 0.15 0.00-0.70 K/uL Basophils # (Auto) 0.09 0.00-0.20 K/uL Absolute Immature Granulocyte (auto 0.02 0-1 K/uL Test 01/30/25 15:15 01/30/25 13:02 Range/Units Influenza Type A Antigen Negative For Type A NEGATIVE Influenza Type B Antigen Negative For Type B NEGATIVE SARS-CoV-2, RNA, NAAT NEGATIVE SARS CoV-2 NEGATIVE Urine Color YELLOW YELLOW Urine Appearance CLEAR CLEAR Urine pH 5.5 5.0-8.0 Urine Specific Robbins 1.024 1.001-1.031 Urine Protein 30 H NEGATIVE mg/dL Urine Glucose (UA) NEGATIVE NEGATIVE mg/dL Urine Ketones NEGATIVE NEGATIVE mg/dL Urine Occult Blood NEGATIVE NEGATIVE Urine Nitrate NEGATIVE NEGATIVE Urine Bilirubin NEGATIVE NEGATIVE mg/dL Urine Urobilinogen 3 H 0.2-1.0 mg/dL Urine Leukocyte Esterase NEGATIVE NEGATIVE Martinez/uL Urine RBC 0-1 0-1 /HPF Urine WBC 2-5 H 0-1 /HPF Urine Bacteria None None Seen /HPF Urine Opiates Screen NEGATIVE NEGATIVE Urine Barbiturates Screen NEGATIVE NEGATIVE Urine Phencyclidine Screen NEGATIVE NEGATIVE Urine Amphetamines Screen NEGATIVE NEGATIVE Urine Benzodiazepines Screen NEGATIVE NEGATIVE Urine Cocaine Screen NEGATIVE NEGATIVE Urine Marijuana (THC) Screen POSITIVE H NEGATIVE Current Medications Medications (Trade) Dose Ordered Sig/Nataly Route PRN Reason Start Time Stop Time Status Last Admin Dose Admin Acetaminophen (TYLenol 325MG TAB) 650 mg Q6H PRN PO MILD PAIN (1-3) 01/30/25 13:00 03/01/25 12:59 Budesonide (Pulmicort 0.5 Mg/2ml) 0.5 mg BIDRESP IH 01/30/25 18:00 03/01/25 17:59 02/01/25 07:00 0.5 MG Ceftriaxone Sodium (ROCEphine 1G INJ) 1 gm Q12H IVPB 01/30/25 13:00 02/09/25 12:59 02/01/25 00:31 1 GM Chlordiazepoxide HCl (LIBrium 25 MG CAP) 25 mg Q4H PRN PO ALCOHOL WITHDRAWAL PROTOCOL 01/30/25 14:30 02/06/25 14:29 Doxycycline Hyclate (Doxycycline Hyclate) 100 mg BID PO 01/30/25 21:00 02/09/25 20:59 02/01/25 08:31 100 MG Folic Acid (FOLic ACID 1 MG TABLET) 1 mg DAILY PO 01/31/25 09:00 02/02/25 09:01 02/01/25 08:30 1 MG Furosemide (LASix 40MG VIAL) 40 mg Q12H IV 01/30/25 13:00 03/01/25 12:59 02/01/25 00:31 40 MG Heparin Sodium (Porcine) (HEParin 5,000 UNIT VIAL) *calculation based on ACTUAL B... AD PRN IV HEPARIN PROTOCOL 01/30/25 15:00 03/01/25 14:59 01/30/25 15:26 8,000 UNIT Heparin Sodium/ Dextrose 250 ml @ 0 mls/hr Q6H IV 01/30/25 15:00 03/01/25 14:59 02/01/25 00:44 14.2 MLS/HR Hydralazine HCl (APRESOLine 20MG INJ) 10 mg Q6H PRN IV ADMINISTER FOR SBP > 170 01/30/25 14:00 03/01/25 13:59 02/01/25 08:32 10 MG Ipratropium [place] (AtrovENT UD) 0.5 mg Q6H PRN IH SHORTNESS OF BREATH 01/31/25 06:00 03/02/25 05:59 Lorazepam (AtiVAN) 1 mg Q4H PRN IVP ALCOHOL WITHDRAWAL PROTOCOL 01/30/25 14:30 02/06/25 14:29 Losartan Potassium (CozAAR 50 mg TAB) 50 mg Q24H PO 01/30/25 14:30 03/01/25 14:29 01/31/25 14:50 50 MG Magnesium Sulfate 50 ml @ 0 mls/hr PROTOCOL IV 01/30/25 13:30 03/01/25 13:29 02/01/25 08:34 1.9 MLS/HR Metoprolol Tartrate (loprESSOR) 5 mg AD PRN IV OTHER [SEE ORDER COMMENTS] 01/30/25 14:30 01/31/25 14:29 DC Metoprolol Tartrate (loprESSOR) 12.5 mg BID PO 01/31/25 07:30 03/01/25 20:59 02/01/25 08:31 12.5 MG Metoprolol Tartrate (loprESSOR) 25 mg TID PO 01/30/25 21:00 01/31/25 07:30 DC 01/30/25 20:39 25 MG Multivitamins Therapeutic (Multivitamin Tablet) 1 tab DAILY PO 01/31/25 09:00 03/02/25 08:59 02/01/25 08:29 1 TAB Nitroglycerin (Nitrostat) 0.4 mg AD PRN SL CHEST PAIN 01/30/25 13:00 03/01/25 12:59 Ondansetron HCl (zoFRAN 4MG INJ) 4 mg Q6H PRN IVP NAUSEA/VOMITING 01/30/25 13:00 03/01/25 12:59 Pantoprazole Sodium (PROTonix 40MG INJ) 40 mg Q24H IVP 01/30/25 13:00 03/01/25 12:59 01/31/25 13:06 40 MG Pharmacy Profile Note (Pharmacy Communication) 1 each PROTOCOL PRN MISC ETOH Withdrawal Score changes 01/30/25 14:30 02/06/25 14:29 Potassium Chloride 100 ml @ 100 mls/hr AD PRN IV POTASSIUM PROTOCOL 01/30/25 13:30 03/01/25 13:29 Potassium Chloride (K-Dur/Klor-Con 20meq) 20 meq AD PRN PO POTASSIUM PROTOCOL 01/30/25 13:30 03/01/25 13:29 Potassium Chloride (KCl 10% Elixir 20meq/15ml) 20 meq AD PRN PO POTASSIUM PROTOCOL 01/30/25 13:30 03/01/25 13:29 02/01/25 08:33 20 MEQ DIAGNOSTICS / RADIOLOGY: [ ] ASSESSMENT: Acute Systolic and Diastolic heart failure exacerbation, (CHADS Vasc score of at least 3),POA Acute hypoxemic respiratory failure, POA Atrial fibrillation with RVR, POA History of medical noncompliance, POA Uncontrolled hypertension, POA History of polysubstance abuse with tobacco and alcohol, POA Prior history of cocaine use, POA BPH, POA PLAN: patient remains admitted to the PCU, he is sitting in the bed, watching TV, blood pressure 149/104, afebrile, he is saturating 984 through 95% on 2 L nasal cannula. Feels mildly short of breath. No chest pain. Remains on heparin drip Hemoglobin today 13.5, hematocrit 40.0, WBC 6.1, platelet count of 126. Sodium 140, potassium 3.4, BUN of 19, creatinine 0.9. Ultrasound soft tissue of the neck done yesterday as the patient with prominent left external jugular vein was unremarkable. No evidence of hematoma or fluid collection or other abn ormalities. Echocardiogram reported as follows Conclusion The left ventricle is dilated. There is global hypokinesis of the left ventricle. LVEF is 20-25%. 3D volume EF 22%. The LV diastolic function was unable to be assessed due to atrial arrhythmia. Severe biatrial enlargement The right ventricle is dilated with reduced systolic function. RV FAC 8% Mild aortic regurgitation. Mild mitral regurgitation. Mild tricuspid regurgitation. Mild pulmonic regurgitation. Negative bubble study. Upon my physical examination, patient alert oriented x3, bibasilar crackles noted, chest x-ray, ABG requested, patient is scheduled to receive furosemide 40 mg IV at 1:00 p.m., we will give it now. We will continue closely monitoring of the patient. NEURO: Minimize central acting medications as possible. Fall Precautions. Well lighted room through the day and minimize interruptions through the night to prevent acute delirium. PULMONARY: Supplemental 02 as needed BiPAP as necessary, for respiratory distress Titrate Fio2 to keep Spo2 > or = 90% DuoNebs and CPT as needed IS hourly while awake for pulmonary hygiene prn Out of bed to chair as tolerated Maintain aspiration precautions at all times CARDIOVASCULAR: Follow hemodynamics. Vital signs per facility protocol GI & NUTRITION: Continue nutritional support Aspirations precautions Prokinetic agents and laxatives as needed KIDNEYS & ELECTROLYTES: Strict monitoring of intake and output Daily weights Avoid nephrotoxic agents Monitor electrolytes and replace as needed Goal urine output of 30mL/hr or 0.5mL/kg/hr Medications to be dosed according to renal function. Avoid contrast if possible ENDOCRINE: Maintain blood glucose between 100-180 at all times. Insulin sliding scale for blood glucose management Hypoglycemia and hyperglycemia protocol in place INFECTIOUS DISEASE: Trend temperature, WBC and procalcitonin level Follow cultures, deescalate antibiotics as soon as possible. Panculture if new onset fever HEMATOLOGY & COAGULATION: Monitor H&H. Keep Hgb > 7 Transfuse 1 unit of PRBC for Hgb < 7 Transfuse 1 pack of platelets of platelets < 20, 000 Watch for any signs and symptoms of bleeding SKIN: Pressure ulcer prevention per facility protocol Specialty mattress as needed ORTHO/REHAB Continue PT/OT PRN: MEDICATIONS Tylenol 650 mg po every 4 hrs for fever zofran 4 mg IV every 6 hrs for n/v Hydralazine 5 mg IV every 4 hrs systolic pressure > 160 bowel regiment: lactulose 20 gm PO BID PRN constipation Supportive measures: Continue GI and DVT prophylaxis Disposition: Pending improvement in clinical condition All questions answered time spent: > 35 min FIFI HOROWITZ MD Feb 01, 2025 10:53
[2025-02-01] MEDS: PoTASSium chloRIDE 20MEQ ER 20 MEQ ERTAB PO ONE (11:01)
[2025-02-01] MEDS: furoSEMIDE 40MG VIAL IV ONE (11:02)
--- NOTE | 2025-02-01 11:31 | HMCIMG ---
CHEST 1VW HISTORY: Shortness of breath COMPARISON: None FINDINGS: A frontal projection of the chest was obtained. There are bilateral pulmonary infiltrates suggestive of pulmonary vascular congestion with possible superimposed pneumonitis. The heart is enlarged. Degenerative changes are seen. No evidence of aortic calcification is seen. IMPRESSION: 1. Bilateral pulmonary infiltrates are seen suggestive of pulmonary vascular congestion with possible superimposed pneumonitis.
--- NOTE | 2025-02-01 11:34 | PN ---
[facility] PROGRESS NOTE Date Patient Seen: Feb 01, 2025 Time of Visit: 11:34 Supervising Physician: Dr. Parada Primary Care Physician: Dr. Ochoa Serrato Outpatient Specialists: [ ] Inpatient Consults: PROBLEM LIST: 1. Acute hypoxemic respiratory failure -requiring supplemental oxygen 2. Acute diastolic and systolic heart failure (awaiting echocardiogram results) 3. Atrial fibrillation with RVR, POA -[id number] score of 2/HasBled score of 4 per Cardiology consult patient is started heparin drip 4. 50 year pack smoker, recently quit 5. Polysubstance abuse: Positive THC -previous admission positive for cocaine 6. Alcohol abuse -patient reports drinking case of beer three to 4 times a week 7. Hypertension, uncontrolled 8. Medication noncompliance INTERVAL HISTORY: 01/31/2025: At the time of my evaluation, the patient lying in bed. The staff nurse reports no acute events overnight. The patient reports feeling much be tter today. Vital signs showed oxygen supplementation via nasal cannula with optimal oxygen saturation and remaining parameters are unremarkable. Laboratory data in unremarkable except for a slightly low potassium of 3.3. Microbiology data showing GPC in sputum. Imaging of the chest was negative for PE. The patient continue on diuretic therapy and metoprolol for rate control. No other complaint. 02/01/2025: At the time of my evaluation, the patient was sitting up in bed. The staff nurse reports the patient had a shortness of breaths episode this a.m. and reports feeling better after a large burping episode. He remains on nasal cannula for oxygen supplementation and remaining vital sign parameters were unremarkable. Also, the patient had a repeat episode of bradycardia possibly related to the use of his beta michael therapy. Laboratory data was unremarkable except for a slightly low potassium of 3.4 And a elevated bilirubin of 1.1. The patient continues on antibiotic therapy with Rocephin and doxy. Sputum culture resulted positive for oral song. No other complaint. REVIEW OF SYSTEMS: 12 point ROS reviewed with patient. Pertinent positives mentioned above. Otherwise negative. PHYSICAL EXAM: GENERAL: Alert, weak, awake oriented x 3 HEENT: EOMI, Sclera non icteric, moist mucosa NECK: Supple, no JVD, trachea midline LUNGS: Clear breath sounds bilaterally. No wheezes HEART: Irregular rate, accelerated rhythm, atrial fib, no murmur ABD: Abdomen tense, distended, Bowel sounds present EXT: Clubbing bilateral lower extremities, pitting dependent edema, NEURO: Alert and oriented to person, follows commands Vital Signs (last 8hr) Date Time Temp Pulse Resp B/P (MAP) Pulse Ox O2 Delivery O2 Flow Rate FiO2 02/01/25 07:04 75 19 02/01/25 07:03 75 19 N/Cannula Low lpm 2.0 28 02/01/25 07:00 98.1 82 25 149/104 Nasal Cannula 2.0 02/01/25 04:35 130 150/70 02/01/25 04:00 97.5 131 18 159/119 94 Nasal Cannula 2.0 LABS: Hematology Labs: Test 02/01/25 03:39 01/31/25 04:11 Range/Units White Blood Count 6.1 4.8-10.8 K/uL Red Blood Count 4.00 L 4.50-6.20 MIL/uL Hemoglobin 13.5 L 14.0-18.0 g/dL Hematocrit 40.0 L 42-54 % Mean Corpuscular Volume 100.0 H 79-99 fL Mean Corpuscular Hemoglobin 33.8 H 27.0-33.0 pg Mean Corpuscular Hemoglobin Concent 33.8 32.0-36.0 g/dL Red Cell Distribution Width 14.6 11.0-15.5 % Platelet Count 126 L 130-400 K/uL Mean Platelet Volume 14.0 H 7.5-10.5 fL Nucleated Red Blood Cells 0.0 0.0-0.19 % Immature Granulocyte % (Auto) 0.3 0-1 % Neutrophils (%) (Auto) 58.0 40.0-77.0 % Lymphocytes (%) (Auto) 27.1 21.0-51.0 % Monocytes (%) (Auto) 11.1 3.0-13.0 % Eosinophils (%) (Auto) 2.2 0.0-8.0 % Basophils (%) (Auto) 1.3 0.0-5.0 % Neutrophils # (Auto) 3.9 1.8-7.7 K/uL Lymphocytes # (Auto) 1.8 1.0-4.8 K/uL Monocytes # (Auto) 0.7 0.1-1.0 K/uL Eosinophils # (Auto) 0.15 0.00-0.70 K/uL Basophils # (Auto) 0.09 0.00-0.20 K/uL Absolute Immature Granulocyte (auto 0.02 0-1 K/uL Chemistry Labs: Test 02/01/25 03:39 Range/Units Sodium Level 140 136-145 mmol/L Potassium Level 3.4 L 3.5-5.1 mmol/L Chloride Level 106 101-111 mmol/L Carbon Dioxide Level 31 21-32 mmol/L Blood Urea Nitrogen 19 H 7-18 mg/dL Creatinine 0.9 0.5-1.3 mg/dL Glomerular Filtration Rate Calc 94 >90 mL/min Random Glucose 99 70-105 mg/dL Total Calcium 8.4 L 8.5-10.1 mg/dL Magnesium Level 1.90 1.80-2.40 mg/dL Total Bilirubin 1.1 H 0.2-1.0 mg/dL Aspartate Amino Transf (AST/SGOT) 25 10-37 U/L Alanine Aminotransferase (ALT/SGPT) 29 12-78 U/L Alkaline Phosphatase 99 50-136 U/L Total Protein 6.4 6.0-8.3 g/dL Albumin 3.1 L 3.5-5.0 g/dL Coagulation Labs: Test 01/31/25 17:37 Range/Units Prothrombin Time 11.3 9.6-11.6 SEC Prothromb Time International Ratio 1.07 0.85-1.15 Activated Partial Thromboplast Time 60.5 H 26.3-35.5 SEC DIAGNOSTICS / RADIOLOGY RESULTS: [ ] PLAN 01/31/2025: For now, we are going to continue current management for the patient. We are going to continue diuretic therapy as ordered. Per Cardiology, decrease metoprolol due to excessive rate slowing. We are going to continue to correct electrolyte imbalance. We will repeat labs in a.m. I discussed the findings and plan for further management with the patient. Also addressed the importance of medication compliance. We will monitor the patient's progress and response to management. We will continue to provide general supportive care, GI and DVT prophylaxis. Further orders per attending MD and hospital course. 02/01/2025: For now, we are going to continue current management for the patient. He will remain on oxygen supplementation via nasal cannula. Per the Cardiology team, they recommended to consult the EPS due to SSS. I am going to request a chest x-ray and a KUB due to his episode earlier this a.m.. The patient will continue on antibiotic therapy with doxy to complete a five day course to end on 02/04/2025, we will discontinue the IV Rocephin. We will repeat surveillance labs in the morning. I discussed the findings and plan for further management with the patient. We will monitor the patient's progress and response to management. We will continue to provide general supportive care, GI and DVT prophylaxis. Further orders per attending MD and hospital course. NEURO: Minimize central acting medications as possible. Maintain fall precautions, adequate lighting during the day PULMONARY: Supplemental 02 as needed. Maintain aspiration precautions at all times Humidified oxygen Albuterol breathing treatments Pulmicort q.12 hours CARDIOVASCULAR: Follow hemodynamics. Vital signs per facility protocol GI & NUTRITION: Continue with nutritional support. Continue stool softeners and laxatives as needed. KIDNEYS & ELECTROLYTES: Strict monitoring of intake, output and overall fluid balance. Avoid nephrotoxic medications to the extent possible. Medications to be dosed according to renal function. Monitor electrolytes and replace as needed ENDOCRINE: Maintain blood glucose between 100-180 at all times. Hypoglycemia protocol in place Sliding scale insulin INFECTIOUS DISEASE: Trend temperature, WBC and procalcitonin level Follow cultures, deescalate antibiotics as soon as possible. Panculture if new onset fever Treating patient prophylactically doxycycline 100 mg p.o. b.i.d. ONCOLOGY/HEMATOLOGY/COAGULATION: Monitor for s/s of bleeding Monitor hemoglobin, coagulation studies as needed SKIN: Pressure ulcer prevention per facility protocol Specialty mattress ORTHO/REHAB: Continue PT/OT Prophylaxis: Continue GI and DVT prophylaxis Code Status: Full Resuscitation Disposition: TBD Other: Patient was seen and case discussed with giovanni [facility]. Plan of care was discussed and agreed upon. LUIS MARTIN NP Feb 01, 2025 11:34
--- NOTE | 2025-02-01 12:10 | HMCIMG ---
ABD 1VW HISTORY: Rule out COMPARISON: None FINDINGS: A frontal projection of the abdomen was obtained. A nonspecific bowel gas pattern is seen. Fecal material is seen in the colon. Degenerative changes of the thoracolumbar spine are noted. IMPRESSION: 1. A nonspecific bowel gas pattern is seen.
--- NOTE | 2025-02-01 12:50 | NUR ---
RE CHECK BP 165/103 (PRIOR 172/101) ....GIVEN SCHEDULED COZAAR DOSE EARLY.
--- NOTE | 2025-02-01 13:00 | NUR ---
REINFORCED TO PATIENT THE IMPORTANCE OF SALT INTAKE. SPOUSE BROUGHT IN SHRIMP PLATE AND EGG ROLLS FOR PATIENT'S LUNCH MEAL.
[2025-02-01] MEDS: furoSEMIDE 40MG VIAL IV SCH (16:27)
[2025-02-01 18:15] LABS: INR 1.08 (0.85-1.15); PROTHROMBIN TIME 11.4 SEC (9.6-11.6)
--- NOTE | 2025-02-01 18:15 | NUR ---
YELLING AND C/O PAIN TO BILATERAL RIB CAGE AREAS. GUARDING. STATES PAIN COMES AND GOES. VS 76-26-100%-155/104. PAGED PHYSICIAN GROUP SEGMENT CONSULTANT. REINFORCED IMPORTANCE OF STAYING IN BED AND KEEPING O2 IN PLACE....DOES NOT FOLLOW INSTRUCTIONS AND IS UPSET. INFORMED HIM THAT I HAVE A CALL OUT TO PHYSICIAN. WILL CONTINUE TO MONITOR.
[2025-02-01 18:16] LABS: PARTIAL THROMBOPLASTIN TIME 56.9 SEC (26.3-35.5)
[2025-02-01] MEDS: hydroMORPHone 0.5 MG SYG (0.5MG/0.5ML) IVP ONE (18:53)
--- NOTE | 2025-02-01 20:35 | NUR ---
Orders Patient heart rate Afib 130s sustaining. Telephone orders given by Tish Yanez. Orders read back and entered. Increase oral metoprolol to 25 mg BID. Administer 5mg metoprolol IVP q15 min x 3 doses for heart elevated heart rate.
[2025-02-01] MEDS: PoTASSium chloRIDE 20MEQ ER 20 MEQ ERTAB PO SCH (20:48)
[2025-02-01] MEDS: LACTULOSE 20 GM/30 ML UDCUP PO SCH (20:48)
[2025-02-01] MEDS: metoPROLOL tartRATE 25 MG TAB PO SCH (20:48)
[2025-02-01] MEDS: chlordiazePOXIDE HCL 25 MG CAP PO PRN (20:49)
[2025-02-01] MEDS: metoPROLOL tartRATE 1 MG/ML 5ML VIAL IV PRN (20:49)
[2025-02-02] VITALS (13 sets, daily range): BP systolic 104–164; BP diastolic 45–130; PULSE 4–117; RESP 18–22; TEMP 97.6–98.6; O2SAT 96–99
[2025-02-02 03:45] LABS: HEMATOCRIT 41.2 % (42-54); MEAN CORPUSCULAR HEMOGLOBIN 33.7 pg (27.0-33.0); MEAN CORPUSCULAR HGB CONC 33.3 g/dL (32.0-36.0); MEAN CORPUSCULAR VOLUME 101.2 fL (79-99); RED BLOOD CELL COUNT(AUTO) 4.07 MIL/uL (4.50-6.20); RED CELL DISTRIBUTION WIDTH 14.6 % (11.0-15.5); WHITE BLOOD COUNT (AUTO) 6.1 K/uL (4.8-10.8)
[2025-02-02 03:57] LABS: ALBUMIN 3.2 g/dL (3.5-5.0); BILIRUBIN,TOTAL 1.2 mg/dL (0.2-1.0); CREATININE 1.1 mg/dL (0.5-1.3); POTASSIUM 3.2 mmol/L (3.5-5.1); TOTAL PROTEIN, SERUM 6.6 g/dL (6.0-8.3)
[2025-02-02] MEDS: PoTASSium chloRIDE 20MEQ ER 20 MEQ ERTAB PO PRN (05:02)
--- NOTE | 2025-02-02 08:02 | HMCIMG ---
CHEST 1VW HISTORY: CHF COMPARISON: 02/02/2000 FINDINGS: A frontal projection of the chest was obtained. There are bilateral pulmonary infiltrates suggestive of pulmonary vascular congestion with possible superimposed pneumonitis. The heart is enlarged. Degenerative changes are seen. No evidence of aortic calcification is seen. IMPRESSION: 1. Bilateral pulmonary infiltrates are seen suggestive of pulmonary vascular congestion with possible superimposed pneumonitis.
--- NOTE | 2025-02-02 08:11 | PN ---
[facility] CARDIOLOGY PROGRESS NOTE Date Patient Seen: Feb 02, 2025 Time of Visit: 08:00 Interval History: Tele shows a-fib rate controlled, 80s-111 bpm, run of 135 bpm at 1 am ] Physical Examination: GENERAL: [No acute distress.] HEAD: [Normal with no signs of head trauma.] EYES: [PERRLA, EOMI, conjunctiva and sclera normal.] ENT: [Hearing grossly intact, normal oropharynx.] NECK: [Supple without JVD. There is no tenderness, lymphadenopathy, or masses. No thyromegaly. Normal carotid upstrokes without bruits.] LUNGS: [rales bilaterally, reduced breath sounds R ] HEART: [irregular rate and rhythm. Normal S1 and S2 without mumurs, gallop or rub.] VASC: [Peripheral pulses +2 bilaterally.] ABD: [Bowel sounds normal, soft, nontender, no masses, no organomegaly. No audible bruits.] : [Not examined] LYMPH: [No lymphadenopathy noted.] EXT: [No clubbing, cyanosis or edema.] SKIN: [No rashes or lesions noted.] NEURO: [Awake, alert, and oriented x3. No focal sensory or strength deficits noted.] Laboratory: [ ] Hematology Labs: Test 02/02/25 03:20 Range/Units White Blood Count 6.1 4.8-10.8 K/uL Red Blood Count 4.07 L 4.50-6.20 MIL/uL Hemoglobin 13.7 L 14.0-18.0 g/dL Hematocrit 41.2 L 42-54 % Mean Corpuscular Volume 101.2 H 79-99 fL Mean Corpuscular Hemoglobin 33.7 H 27.0-33.0 pg Mean Corpuscular Hemoglobin Concent 33.3 32.0-36.0 g/dL Red Cell Distribution Width 14.6 11.0-15.5 % Platelet Count 122 L 130-400 K/uL Mean Platelet Volume 13.8 H 7.5-10.5 fL Nucleated Red Blood Cells 0.0 0.0-0.19 % Chemistry Labs: Test 02/02/25 05:18 02/02/25 03:20 Range/Units Whole Blood Glucose 83 70-110 MG/DL Sodium Level 142 136-145 mmol/L Potassium Level 3.2 L 3.5-5.1 mmol/L Chloride Level 102 101-111 mmol/L Carbon Dioxide Level 32 21-32 mmol/L Blood Urea Nitrogen 21 H 7-18 mg/dL Creatinine 1.1 0.5-1.3 mg/dL Glomerular Filtration Rate Calc 74 >90 mL/min Random Glucose 117 H 70-105 mg/dL Total Calcium 8.4 L 8.5-10.1 mg/dL Magnesium Level 2.00 1.80-2.40 mg/dL Total Bilirubin 1.2 H 0.2-1.0 mg/dL Aspartate Amino Transf (AST/SGOT) 25 10-37 U/L Alanine Aminotransferase (ALT/SGPT) 32 12-78 U/L Alkaline Phosphatase 97 50-136 U/L Total Protein 6.6 6.0-8.3 g/dL Albumin 3.2 L 3.5-5.0 g/dL Coagulation Labs: Test 02/01/25 17:58 Range/Units Prothrombin Time 11.4 9.6-11.6 SEC Prothromb Time International Ratio 1.08 0.85-1.15 Activated Partial Thromboplast Time 56.9 H 26.3-35.5 SEC Diagnostics / Radiology: [Copy/Paste Echos/Imaging Report here] Impression and Plan: [Problems: 1. Acute on chronic diastolic and systolic heart failure with dilated cardiomyo wallace 2. Atrial flutter with two-to-one conduction 3. History of paroxysmal atrial fibrillation not on anticoagulation due to n oncompliance 4. Hypertension 5. Polysubstance abuse with cocaine marijuana alcohol and tobacco 6. Elevated D-dimer with no evidence of pulmonary embolism on CT scan 7. Mild thrombocytopenia # Atrial flutter with two-to-one conduction and now a-fib -The patient has a history of atrial fibrillation but has been noncompliant with medications and follow up. - 2D echocardiogram with LVEF 20-25% and LV dilated. -heparin gtt for elevated [id number] -01/31 in the morning heart rate has dropped he remains in AFib with a slow ventricular response, so metoprolol was reduced to 12.5 mg bid. However, this AM he developed HR 130s. -02/01 had a run of RVR with HR 130s, currently 80-110s bpm, given use of cocaine on last admission, will change his rate control medication to digoxin and begin loading, f/u AM digoxin level #Acute on chronic diastolic and systolic heart failure with dilated cardiomyopathy likely due to pneumonia/ Legionnaire's disease -+legionella urinary Antigen -01/31: lasix 40 mg IV bid, will increase lasix to q8h as CXR worsening opacities. Legionella + urine culture. CXR today with worsening right sided opacities more consistent with pneumonia, will continue diuresis -c/w losartan 50 mg qd Jenifer Yanez MD ] JENIFER YANEZ MD Feb 02, 2025 08:11
[2025-02-02] MEDS ORDERED: DIGOxin 250 MCG/ML 2ML AMP IV SCH ×2 (08:30)
--- NOTE | 2025-02-02 08:47 | PN ---
[facility] PROGRESS NOTE Date of Service: Feb 02, 2025 Time of Service: 08:41 SUBJECTIVE: 64-year-old male with underlying history of hypertension, history of atrial fibrillation currently not on anticoagulation, history of polysubstance abuse with smoking, alcohol and prior cocaine use who presented to the ER for further evaluation of one-week history of shortness of breath. Patient reported having dyspnea on exertion and PND and orthopnea . He has been having some substernal discomfort as well. He has been having mild coughing as well. Patient denied any fevers or chills or night sweats. Shortness of breaths worsened with activity and patient is able to walk about 50-100 ft before he gets short of breath. [place] [facility] [place] where he was found to have new onset atrial fibrillation with RVR, patient left against medical advice and reports that he is currently not on any rate control or anticoagulation. Currently smokes about 2-3 packs of cigarettes daily for about 20-30 years. Also drinks about a case of beer about three to 4 times a week. Patient has a history of cocaine use as well. On presentation to the hospital, patient was noted to be afebrile, tachycardic with heart rate in 120s-130s with atrial fibrillation with RVR, blood pressure of 147/117. Labs on presentation showed WBC count of 7900, hemoglobin 14.4, platelet count of [id number]. BMP remarkable for sodium of 141, potassium 4.1, BUN of 23,, creatinine 1.1. Chest x-ray showed bilateral infiltrates concerning for pulmonary edema with community-acquired pneumonia not ruled out. Patient will be admitted for decompensated heart failure with underlying atrial fibrillation with RVR. Consultation with Cardiology will be requested. Patient received also IV antibiotics until pneumonia is ruled out. 01/31 patient remains admitted to the PCU, sitting comfortable in the chair, sean rt oriented x3. BP 133/95, heart rate of 102, afebrile, saturating 98% on 2 L nasal cannula. He remains on heparin drip CBC with a hemoglobin 14.0, hematocrit 40.7, white blood cell count 6.7, sodium 141, potassium 3.3, BUN of 22, creatinine 1.2, magnesium 1.9, liver enzymes unremarkable. Toxicology screen positive for marijuana. Serology test to include influenza and SARS anti gen negative. Chest x-ray findings consistent pneumoniae, cardiomegaly, Doppler of the lower extremities no evidence of DVT, CT chest no evidence of PE, bilateral pleural effusion, bilateral basilar pneumoniae, echocardiogram pending. Cardiology input noted and appreciated, recommended reducing metoprolol dose, continue with IV diuresis. Pulmonary input noted and appreciated, continue the patient on broad-spectrum IV antibiotics with doxycycline 100 mg p.o. b.i.d. , continue Rocephin 1 g IV q.12 hours, continue CIWA protocol. Monitor for signs of withdrawal. 02/01 patient remains admitted to the PCU, he is sitting in the bed, watching TV, blood pressure 149/104, afebrile, he is saturating 984 through 95% on 2 L nasal cannula. He remains on heparin drip Feels mildly short of breath. No chest pain. Hemoglobin today 13.5, hematocrit 40.0, WBC 6.1, platelet count of 126. Sodium 140, potassium 3.4, BUN of 19, creatinine 0.9. Ultrasound soft tissue of the neck done yesterday as the patient with prominent left external jugular vein was unremarkable. No evidence of hematoma or fluid collection or other abnormalities. Echocardiogram reported as follows Conclusion The left ventricle is dilated. There is global hypokinesis of the left ventricle. LVEF is 20-25%. 3D volume EF 22%. The LV diastolic function was unable to be assessed due to atrial arrhythmia. Severe biatrial enlargement The right ventricle is dilated with reduced systolic function. RV FAC 8% Mild aortic regurgitation. Mild mitral regurgitation. Mild tricuspid regurgitation. Mild pulmonic regurgitation. Negative bubble study. Upon my physical examination, patient alert oriented x3, bibasilar crackles noted, chest x-ray, ABG requested, patient is scheduled to receive furosemide 40 mg IV at 1:00 p.m., we will give it now. We will continue closely monitoring of the patient. 02/02 patient remains admitted to the PCU, comfortable in bed watching TV, alert oriented x3, blood pressure 149/98, heart rate of 117, saturating 90 3% on room air. CBC with a hemoglobin 13.7, hematocrit 41.2, WBC 6.1, platelet count 122. Patient's sodium 142, potassium 3.2, magnesium 2.0. Patient was complaining of shortness a breath yesterday, Lasix 40 mg IV x1 was given, ABG reviewed, pH 7.43, pCO2 29, PO2 99.9, with a bicarbonate of 19.4. Repeat chest x-ray shows bilateral pulmonary infiltrates suggestive of pulmonary vascular congestion with possible superimposed pneumonitis. Urine Legionella antigen negative. Continue current IV antibiotics. We will request Infectious Disease consultation. Continue to follow Pulmonary input and recommendation. Patient has been started on digoxin. Continue metoprolol IV as needed, continue furosemide 40 mg IV q.8 hours. We will give potassium chloride 40 mEq p.o. x1 two keep potassium level above four, magnesium above two. Patient remains on heparin drip, continue to monitor platelet count in a.m.. REVIEW OF SYSTEMS CONSTITUTIONAL: Denies fevers, chills, or night sweats. No unintentional weight loss reported. NEUROLOGICAL: Denies headache, amaurosis fugax, motor weakness, sensory deficit, vertigo/spinning sensation, gait abnormalities, or tremors. ENT: No hearing loss, otalgia, otorrhea, rhinitis, rhinorrhea, hoarseness, or sore throat. CARDIOVASCULAR: Shortness of breath, dyspnea on exertion, PND, orthopnea PULMONARY: Denies any shortness of breath, cough, phlegm/sputum, hemoptysis, pleuritic chest pain. SLEEP: Denies morning headaches, daytime somnolence or napping. Denies difficulty falling asleep, staying asleep, waking from sleep. Denies knowledge of snoring. GASTROINTESTINAL: Denies any type of dysphagia to either liquids or solids. Denies nausea, vomiting, pyrosis, early satiety, abdominal pain, diarrhea, constipation, or changes in stool consistency or caliber. Denies coffee-ground emesis, hematemesis, hematochezia, or melanotic stools. GENITOURINARY: Denies frequency, urgency, nocturia, hematuria or incontinence (Storage/Irritative symptoms.) Low urinary stream, straining to void, urinary intermittency or hesitancy, splitting of the voiding stream, terminal dribbling. ENDOCRINOLOGIC: Denies polyuria, polydipsia, polyphagia or heat/cold intolerances. HEMATOLOGIC: Denies thrombophilia/previous clots, or coagulopathy/bleeding disorders. ONCOLOGIC: Denies personal history of malignancy. DERMATOLOGIC: Denies rashes or pruritus. PSYCHIATRIC: Denies any suicidal or homicidal ideation. Denies hallucinations. PHYSICAL EXAM GENERAL APPEARANCE: The patient is awake, alert, and oriented, in no acute cardiopulmonary distress. NEUROLOGICAL: Cranial nerves II-XII grossly intact. Motor is 5/5 in bilateral upper and lower extremities proximal to distal. No sensory deficits. HEENT: Face is symmetric. Pupils are equal and reactive. Extraocular movements are intact. NECK: Supple. No JVD. No thyromegaly. No submental, submandibular, pre- /postauricular, occipital or supraclavicular lymphadenopathy. CHEST: Normal chest expansion. No Telemetry. LUNGS: Crackles, no wheeze CARDIOVASCULAR: Irregularly irregular. S1 and S2 normal. No appreciable rubs, murmurs or gallops. ABDOMEN: Soft, nontender, and nondistended. There is no rebound, voluntary guarding, or rigidity. : Deferred. No Winston. EXTREMITIES: 2+ pitting edema of the lower extremities SKIN: No skin breakdown. Vital Signs (last 8hr) Date Time Temp Pulse Resp B/P (MAP) Pulse Ox O2 Delivery O2 Flow Rate FiO2 02/02/25 07:00 98.6 117 18 149/98 93 Room Air 02/02/25 06:30 65 19 02/02/25 06:29 65 18 N/A Room Air 21 02/02/25 03:39 97.5 77 20 164/92 98 Nasal Cannula 2.0 LABS: Laboratory: Test 02/02/25 05:18 02/02/25 03:20 02/01/25 17:58 02/01/25 10:46 Range/Units Whole Blood Glucose 83 70-110 MG/DL White Blood Count 6.1 4.8-10.8 K/uL Red Blood Count 4.07 L 4.50-6.20 MIL/uL Hemoglobin 13.7 L 14.0-18.0 g/dL Hematocrit 41.2 L 42-54 % Mean Corpuscular Volume 101.2 H 79-99 fL Mean Corpuscular Hemoglobin 33.7 H 27.0-33.0 pg Mean Corpuscular Hemoglobin Concent 33.3 32.0-36.0 g/dL Red Cell Distribution Width 14.6 11.0-15.5 % Platelet Count 122 L 130-400 K/uL Mean Platelet Volume 13.8 H 7.5-10.5 fL Nucleated Red Blood Cells 0.0 0.0-0.19 % Sodium Level 142 136-145 mmol/L Potassium Level 3.2 L 3.5-5.1 mmol/L Chloride Level 102 101-111 mmol/L Carbon Dioxide Level 32 21-32 mmol/L Blood Urea Nitrogen 21 H 7-18 mg/dL Creatinine 1.1 0.5-1.3 mg/dL Glomerular Filtration Rate Calc 74 >90 mL/min Random Glucose 117 H 70-105 mg/dL Total Calcium 8.4 L 8.5-10.1 mg/dL Magnesium Level 2.00 1.80-2.40 mg/dL Total Bilirubin 1.2 H 0.2-1.0 mg/dL Aspartate Amino Transf (AST/SGOT) 25 10-37 U/L Alanine Aminotransferase (ALT/SGPT) 32 12-78 U/L Alkaline Phosphatase 97 50-136 U/L Total Protein 6.6 6.0-8.3 g/dL Albumin 3.2 L 3.5-5.0 g/dL Prothrombin Time 11.4 9.6-11.6 SEC Prothromb Time International Ratio 1.08 0.85-1.15 Activated Partial Thromboplast Time 56.9 H 26.3-35.5 SEC Blood Gas Specimen Type Arterial Arterial Blood pH 7.438 7.350-7.450 Arterial Blood Partial Pressure CO2 29 L 35-48 mmHg Arterial Blood Partial Pressure O2 99.9 83.0-108.0 mmHg Arterial Blood HCO3 19.4 L 21.0-28.0 mmol/L Arterial Blood Oxygen Saturation 97.8 94.0-98.0 % Arterial Blood Base Excess -3.4 L -2.0-3.0 mmol/L Blood Gas Temperature 37.0 35.5-37.0 CELSIUS Blood Gas Flow-by 4.00 0.00-15.00 L/min Blood Gas Vent Mode 4LNC ROOM AIR FiO2 36.0 % Blood Gas Specimen Comment RR CANDICE Current Medications Medications (Trade) Dose Ordered Sig/Nataly Route PRN Reason Start Time Stop Time Status Last Admin Dose Admin Acetaminophen (TYLenol 325MG TAB) 650 mg Q6H PRN PO MILD PAIN (1-3) 01/30/25 13:00 03/01/25 12:59 Budesonide (Pulmicort 0.5 Mg/2ml) 0.5 mg BIDRESP IH 01/30/25 18:00 03/01/25 17:59 02/02/25 06:27 0.5 MG Ceftriaxone Sodium (ROCEphine 1G INJ) 1 gm Q12H IVPB 01/30/25 13:00 02/01/25 17:22 DC 02/01/25 12:53 1 GM Chlordiazepoxide HCl (LIBrium 25 MG CAP) 25 mg Q4H PRN PO ALCOHOL WITHDRAWAL PROTOCOL 01/30/25 14:30 02/06/25 14:29 02/01/25 20:49 25 MG Digoxin (LANOxin 125mcg) 125 mcg DAILY PO 02/03/25 09:00 03/05/25 08:59 Digoxin (LANOxin 250 MCG/ ML 2ML AMP) 250 mcg ONCE IV 02/02/25 08:30 03/04/25 08:29 UNV Digoxin (LANOxin 250 MCG/ ML 2ML AMP) 250 mcg ONCE IV 02/02/25 08:30 03/04/25 08:29 UNV Doxycycline Hyclate (Doxycycline Hyclate) 100 mg BID PO 01/30/25 21:00 02/04/25 20:59 02/01/25 20:48 100 MG Folic Acid (FOLic ACID 1 MG TABLET) 1 mg DAILY PO 01/31/25 09:00 02/02/25 09:01 02/01/25 08:30 1 MG Furosemide (LASix 40MG VIAL) 40 mg Q12H IV 01/30/25 13:00 02/01/25 13:06 DC 02/01/25 00:31 40 MG Furosemide (LASix 40MG VIAL) 40 mg Q8H IV 02/01/25 16:00 03/03/25 15:59 02/01/25 23:49 40 MG Heparin Sodium (Porcine) (HEParin 5,000 UNIT VIAL) *calculation based on ACTUAL B... AD PRN IV HEPARIN PROTOCOL 01/30/25 15:00 03/01/25 14:59 01/30/25 15:26 8,000 UNIT Heparin Sodium/ Dextrose 250 ml @ 0 mls/hr Q6H IV 01/30/25 15:00 03/01/25 14:59 02/01/25 18:55 14.2 MLS/HR Hydralazine HCl (APRESOLine 20MG INJ) 10 mg Q6H PRN IV ADMINISTER FOR SBP > 170 01/30/25 14:00 03/01/25 13:59 02/01/25 08:32 10 MG Ipratropium [place] (AtrovENT UD) 0.5 mg Q6H PRN IH SHORTNESS OF BREATH 01/31/25 06:00 03/02/25 05:59 Lactulose (Constulose 20gm/ 30ml Udcup) 20 gm BID PO 02/01/25 21:00 03/03/25 20:59 02/01/25 20:48 20 GM Lorazepam (AtiVAN) 1 mg Q4H PRN IVP ALCOHOL WITHDRAWAL PROTOCOL 01/30/25 14:30 02/06/25 14:29 Losartan Potassium (CozAAR 50 mg TAB) 50 mg Q24H PO 01/30/25 14:30 03/01/25 14:29 02/01/25 12:59 50 MG Magnesium Sulfate 50 ml @ 0 mls/hr PROTOCOL IV 01/30/25 13:30 03/01/25 13:29 02/01/25 08:34 1.9 MLS/HR Metoprolol Tartrate (loprESSOR) 5 mg AD PRN IV OTHER [SEE ORDER COMMENTS] 01/30/25 14:30 01/31/25 14:29 DC Metoprolol Tartrate (loprESSOR) 5 mg AD PRN IV INCREASED HEART RATE >100 BPM 02/01/25 20:30 02/01/25 20:49 5 MG Metoprolol Tartrate (loprESSOR) 12.5 mg BID PO 01/31/25 07:30 02/01/25 20:29 DC 02/01/25 08:31 12.5 MG Metoprolol Tartrate (loprESSOR) 25 mg BID PO 02/01/25 21:00 02/02/25 08:08 DC 02/01/25 20:48 25 MG Metoprolol Tartrate (loprESSOR) 25 mg TID PO 01/30/25 21:00 01/31/25 07:30 DC 01/30/25 20:39 25 MG Multivitamins Therapeutic (Multivitamin Tablet) 1 tab DAILY PO 01/31/25 09:00 03/02/25 08:59 02/01/25 08:29 1 TAB Nitroglycerin (Nitrostat) 0.4 mg AD PRN SL CHEST PAIN 01/30/25 13:00 03/01/25 12:59 Ondansetron HCl (zoFRAN 4MG INJ) 4 mg Q6H PRN IVP NAUSEA/VOMITING 01/30/25 13:00 03/01/25 12:59 Pantoprazole Sodium (PROTonix 40MG INJ) 40 mg Q24H IVP 01/30/25 13:00 03/01/25 12:59 02/01/25 12:53 40 MG Pharmacy Profile Note (Pharmacy Communication) 1 each PROTOCOL PRN MISC ETOH Withdrawal Score changes 01/30/25 14:30 02/06/25 14:29 Potassium Chloride 100 ml @ 100 mls/hr AD PRN IV POTASSIUM PROTOCOL 01/30/25 13:30 03/01/25 13:29 Potassium Chloride (K-Dur/Klor-Con 20meq) 20 meq AD PRN PO POTASSIUM PROTOCOL 01/30/25 13:30 03/01/25 13:29 02/02/25 05:02 20 MEQ Potassium Chloride (K-Dur/Klor-Con 20meq) 20 meq BID PO 02/01/25 21:00 03/03/25 20:59 02/01/25 20:48 20 MEQ Potassium Chloride (KCl 10% Elixir 20meq/15ml) 20 meq AD PRN PO POTASSIUM PROTOCOL 01/30/25 13:30 03/01/25 13:29 02/01/25 08:33 20 MEQ DIAGNOSTICS / RADIOLOGY: [ ] ASSESSMENT: Acute on chronic Systolic and Diastolic heart failure exacerbation, (CHADS Vasc score of at least 3),POA Dilated cardiomyopathy, with a ejection fraction 20-25%, LV dilated. Acute hypoxemic respiratory failure, POA Atrial fibrillation with RVR, POA History of medical noncompliance, POA Uncontrolled hypertension, POA History of polysubstance abuse with tobacco and alcohol, POA Prior history of cocaine use, POA BPH, POA Thrombocytopenia on heparin drip PLAN: patient remains admitted to the PCU, blood pressure 149/98, heart rate of 117, saturating 90 3% on room air. CBC with a hemoglobin 13.7, hematocrit 41.2, WBC 6.1, platelet count 122. Patient's sodium 142, potassium 3.2, magnesium 2.0. Patient was complaining of shortness a breath yesterday, Lasix 40 mg IV x1 was given, ABG reviewed, pH 7.43, pCO2 29, PO2 99.9, with a bicarbonate of 19.4. Repeat chest x-ray shows bilateral pulmonary infiltrates suggestive of pulmonary vascular congestion with possible superimposed pneumonitis. Urine Legionella antigen negative. Continue current IV antibiotics. We will request Infectious Disease consultation Continue to follow Pulmonary input and recommendation. Patient has been started on digoxin. Continue metoprolol IV as needed, continue furosemide 40 mg IV q.8 hours. We will give potassium chloride 40 mEq p.o. x1 two keep potassium level above four, magnesium above two. Patient remains on heparin drip, continue to monitor platelet count in a.m.. NEURO: Minimize central acting medications as possible. Fall Precautions. Well lighted room through the day and minimize interruptions through the night to prevent acute delirium. PULMONARY: Supplemental 02 as needed BiPAP as necessary, for respiratory distress Titrate Fio2 to keep Spo2 > or = 90% DuoNebs and CPT as needed IS hourly while awake for pulmonary hygiene prn Out of bed to chair as tolerated Maintain aspiration precautions at all times CARDIOVASCULAR: Follow hemodynamics. Vital signs per facility protocol GI & NUTRITION: Continue nutritional support Aspirations precautions Prokinetic agents and laxatives as needed KIDNEYS & ELECTROLYTES: Strict monitoring of intake and output Daily weights Avoid nephrotoxic agents Monitor electrolytes and replace as needed Goal urine output of 30mL/hr or 0.5mL/kg/hr Medications to be dosed according to renal function. Avoid contrast if possible ENDOCRINE: Maintain blood glucose between 100-180 at all times. Insulin sliding scale for blood glucose management Hypoglycemia and hyperglycemia protocol in place INFECTIOUS DISEASE: Trend temperature, WBC and procalcitonin level Follow cultures, deescalate antibiotics as soon as possible. Panculture if new onset fever HEMATOLOGY & COAGULATION: Monitor H&H. Keep Hgb > 7 Transfuse 1 unit of PRBC for Hgb < 7 Transfuse 1 pack of platelets of platelets < 20, 000 Watch for any signs and symptoms of bleeding SKIN: Pressure ulcer prevention per facility protocol Specialty mattress as needed ORTHO/REHAB Continue PT/OT PRN: MEDICATIONS Tylenol 650 mg po every 4 hrs for fever zofran 4 mg IV every 6 hrs for n/v Hydralazine 5 mg IV every 4 hrs systolic pressure > 160 bowel regiment: lactulose 20 gm PO BID PRN constipation Supportive measures: Continue GI and DVT prophylaxis Disposition: Pending improvement in clinical condition All questions answered time spent: > 35 min FIFI HOROWITZ MD Feb 02, 2025 08:47
[2025-02-02] MEDS: DIGOxin 250 MCG/ML 2ML AMP IV ONE ×3 (09:04→22:13)
[2025-02-02] MEDS: PoTASSium chloRIDE 20MEQ ER 20 MEQ ERTAB PO ONE (09:06)
[2025-02-02] MEDS: ceFEPime HCL 1 GM VIAL IVPB SCH (13:38)
[2025-02-02] MEDS ORDERED: DIGOxin 250 MCG/ML 2ML AMP IV ONE ×2 (14:00→20:00)
--- NOTE | 2025-02-02 16:39 | PN ---
[facility] PROGRESS NOTE Date Patient Seen: Feb 02, 2025 Time of Visit: 16:38 Supervising Physician: Dr. Lackey Primary Care Physician: Dr. Ochoa Serrato Outpatient Specialists: [ ] Inpatient Consults: PROBLEM LIST: 1. Acute hypoxemic respiratory failure -requiring supplemental oxygen 2. Acute diastolic and systolic heart failure (awaiting echocardiogram results) 3. Atrial fibrillation with RVR, POA -[id number] score of 2/HasBled score of 4 per Cardiology consult patient is started heparin drip 4. 50 year pack smoker, recently quit 5. Polysubstance abuse: Positive THC -previous admission positive for cocaine 6. Alcohol abuse -patient reports drinking case of beer three to 4 times a week 7. Hypertension, uncontrolled 8. Medication noncompliance INTERVAL HISTORY: 01/31/2025: At the time of my evaluation, the patient lying in bed. The staff nurse reports no acute events overnight. The patient reports feeling much better today. Vital signs showed oxygen supplementation via nasal cannula with optimal oxygen saturation and remaining parameters are unremarkable. Laboratory data in unremarkable except for a slightly low potassium of 3.3. Microbiology data showing GPC in sputum. Imaging of the chest was negative for PE. The patient continue on diuretic therapy and metoprolol for rate control. No other complaint. 02/01/2025: At the time of my evaluation, the patient was sitting up in bed. The staff nurse reports the patient had a shortness of breaths episode this a.m. and reports feeling better after a large burping episode. He remains on nasal cannula for oxygen supplementation and remaining vital sign parameters were unremarkable. Also, the patient had a repeat episode of bradycardia possibly related to the use of his beta michael therapy. Laboratory data was u nremarkable except for a slightly low potassium of 3.4 And a elevated bilirubin of 1.1. The patient continues on antibiotic therapy with Rocephin and doxy. Sputum culture resulted positive for oral song. No other complaint. 02/02/2025: At the time of my evaluation, the patient was sitting up in bed. He reports feeling much better today. Currently, the patient is on room air with optimal oxygen saturation. He is borderline tachycardic, eupneic and normotensive. Laboratory data was remarkable for a potassium of 3.2 which later corrected to 3.7 And a total bili of 1.2 No liver enzyme elevation. Sputum culture resulted with normal oropharyngeal song. Chest x-ray today, showed pneumonic infiltrate/vascular congestion, greater on the right. Currently, the patient remains on diuretic therapy with furosemide and is on antibiotic therapy with doxycycline. He also remains on a heparin drip and Lopressor. No other complaint. REVIEW OF SYSTEMS: 12 point ROS reviewed with patient. Pertinent positives mentioned above. Otherwise negative. PHYSICAL EXAM: GENERAL: Alert, weak, awake oriented x 3 HEENT: EOMI, Sclera non icteric, moist mucosa NECK: Supple, no JVD, trachea midline LUNGS: Clear breath sounds bilaterally. No wheezes HEART: Irregular rate, accelerated rhythm, atrial fib, no murmur ABD: Abdomen tense, distended, Bowel sounds present EXT: Clubbing bilateral lower extremities, pitting dependent edema, NEURO: Alert and oriented to person, follows commands Vital Signs (last 8hr) Date Time Temp Pulse Resp B/P (MAP) Pulse Ox O2 Delivery O2 Flow Rate FiO2 02/02/25 14:44 100 02/02/25 13:44 109 02/02/25 11:00 98.6 66 19 112/45 99 Room Air 02/02/25 10:04 109 02/02/25 09:04 112 02/02/25 09:00 97 Room Air* 0 21 LABS: Hematology Labs: Test 02/02/25 03:20 Range/Units White Blood Count 6.1 4.8-10.8 K/uL Red Blood Count 4.07 L 4.50-6.20 MIL/uL Hemoglobin 13.7 L 14.0-18.0 g/dL Hematocrit 41.2 L 42-54 % Mean Corpuscular Volume 101.2 H 79-99 fL Mean Corpuscular Hemoglobin 33.7 H 27.0-33.0 pg Mean Corpuscular Hemoglobin Concent 33.3 32.0-36.0 g/dL Red Cell Distribution Width 14.6 11.0-15.5 % Platelet Count 122 L 130-400 K/uL Mean Platelet Volume 13.8 H 7.5-10.5 fL Nucleated Red Blood Cells 0.0 0.0-0.19 % Chemistry Labs: Test 02/02/25 15:02 02/02/25 05:18 02/02/25 03:20 Range/Units Potassium Level 3.7 3.5-5.1 mmol/L Whole Blood Glucose 83 70-110 MG/DL Sodium Level 142 136-145 mmol/L Chloride Level 102 101-111 mmol/L Carbon Dioxide Level 32 21-32 mmol/L Blood Urea Nitrogen 21 H 7-18 mg/dL Creatinine 1.1 0.5-1.3 mg/dL Glomerular Filtration Rate Calc 74 >90 mL/min Random Glucose 117 H 70-105 mg/dL Total Calcium 8.4 L 8.5-10.1 mg/dL Magnesium Level 2.00 1.80-2.40 mg/dL Total Bilirubin 1.2 H 0.2-1.0 mg/dL Aspartate Amino Transf (AST/SGOT) 25 10-37 U/L Alanine Aminotransferase (ALT/SGPT) 32 12-78 U/L Alkaline Phosphatase 97 50-136 U/L Total Protein 6.6 6.0-8.3 g/dL Albumin 3.2 L 3.5-5.0 g/dL Coagulation Labs: Test 02/01/25 17:58 Range/Units Prothrombin Time 11.4 9.6-11.6 SEC Prothromb Time International Ratio 1.08 0.85-1.15 Activated Partial Thromboplast Time 56.9 H 26.3-35.5 SEC DIAGNOSTICS / RADIOLOGY RESULTS: [ ] PLAN 01/31/2025: For now, we are going to continue current management for the pat ient. We are going to continue diuretic therapy as ordered. Per Cardiology, decrease metoprolol due to excessive rate slowing. We are going to continue to correct electrolyte imbalance. We will repeat labs in a.m. I discussed the findings and plan for further management with the patient. Also addressed the importance of medication compliance. We will monitor the patient's progress and response to management. We will continue to provide general supportive care, GI and DVT prophylaxis. Further orders per attending MD and hospital course. 02/01/2025: For now, we are going to continue current management for the patient. He will remain on oxygen supplementation via nasal cannula. Per the Cardiology team, they recommended to consult the EPS due to SSS. I am going to request a chest x-ray and a KUB due to his episode earlier this a.m.. The patient will continue on antibiotic therapy with doxy to complete a five day course to end on 02/04/2025, we will discontinue the IV Rocephin. We will repeat surveillance labs in the morning. I discussed the findings and plan for further management with the patient. We will monitor the patient's progress and response to management. We will continue to provide general supportive care, GI and DVT prophylaxis. Further orders per attending MD and hospital course. 02/02/2025: For now, going to continue current management for the patient. Per the supervisor finishing room's input, the patient will be loaded with digoxin and anticoagulation therapy we will be changed to Eliquis. He will remain on diuretic therapy. Primary MD consulted infectious disease specialist who started the patient on cefepime and currently remains on doxy. We will repeat surveillance labs in the morning. I discussed the findings and plan for further management with the patient. We will monitor the patient's progress and response to management. We will continue to provide general supportive care, GI and DVT prophylaxis. Further orders per attending MD and hospital course. NEURO: Minimize central acting medications as possible. Maintain fall precautions, adequate lighting during the day PULMONARY: Supplemental 02 as needed. Maintain aspiration precautions at all times Humidified oxygen Albuterol breathing treatments Pulmicort q.12 hours CARDIOVASCULAR: Follow hemodynamics. Vital signs per facility protocol GI & NUTRITION: Continue with nutritional support. Continue stool softeners and laxatives as needed. KIDNEYS & ELECTROLYTES: Strict monitoring of intake, output and overall fluid balance. Avoid nephrotoxic medications to the extent possible. Medications to be dosed according to renal function. Monitor electrolytes and replace as needed ENDOCRINE: Maintain blood glucose between 100-180 at all times. Hypoglycemia protocol in place Sliding scale insulin INFECTIOUS DISEASE: Trend temperature, WBC and procalcitonin level Follow cultures, deescalate antibiotics as soon as possible. Panculture if new onset fever Treating patient prophylactically doxycycline 100 mg p.o. b.i.d. ONCOLOGY/HEMATOLOGY/COAGULATION: Monitor for s/s of bleeding Monitor hemoglobin, coagulation studies as needed SKIN: Pressure ulcer prevention per facility protocol Specialty mattress ORTHO/REHAB: Continue PT/OT Prophylaxis: Continue GI and DVT prophylaxis Code Status: Full Resuscitation Disposition: TBD Other: Patient was seen and case discussed with giovanni [facility]. Plan of care was discussed and agreed upon. LUIS MARTIN NP Feb 02, 2025 16:39
[2025-02-02] MEDS: APIXaban 5 MG TABLET PO SCH (22:12)
[2025-02-03] VITALS (12 sets, daily range): BP systolic 147–178; BP diastolic 76–113; PULSE 44–129; RESP 18–22; TEMP 97.8–98.2; O2SAT 92–95
[2025-02-03 03:42] LABS: HEMATOCRIT 40.9 % (42-54); MEAN CORPUSCULAR HEMOGLOBIN 33.7 pg (27.0-33.0); RED BLOOD CELL COUNT(AUTO) 4.13 MIL/uL (4.50-6.20); RED CELL DISTRIBUTION WIDTH 14.5 % (11.0-15.5); WHITE BLOOD COUNT (AUTO) 6.1 K/uL (4.8-10.8)
[2025-02-03 04:05] LABS: ALBUMIN 3.1 g/dL (3.5-5.0); BILIRUBIN,TOTAL 1.1 mg/dL (0.2-1.0); DIGOXIN 0.52 ng/mL (0.50-2.00); MAGNESIUM 1.9 mg/dL (1.80-2.40); POTASSIUM 3.8 mmol/L (3.5-5.1); TOTAL PROTEIN, SERUM 6.5 g/dL (6.0-8.3)
--- NOTE | 2025-02-03 09:06 | PN ---
[facility] PROGRESS NOTE Date of Service: Feb 03, 2025 Time of Service: 09:04 SUBJECTIVE: 64-year-old male with underlying history of hypertension, history of atrial fibrillation currently not on anticoagulation, history of polysubstance abuse with smoking, alcohol and prior cocaine use who presented to the ER for further evaluation of one-week history of shortness of breath. Patient reported having dyspnea on exertion and PND and orthopnea . He has been having some substernal discomfort as well. He has been having mild coughing as well. Patient denied any fevers or chills or night sweats. Shortness of breaths worsened with activity and patient is able to walk about 50-100 ft before he gets short of breath. Patient was previously hospitalized in [facility] [place] and 02/2024 where he was found to have new onset atrial fibrillation with RVR, patient left against medical advice and reports that he is currently not on any rate control or anticoagulation. Currently smokes about 2-3 packs of cigarettes daily for about 20-30 years. Also drinks about a case of beer about three to 4 times a week. Patient has a history of cocaine use as well. On presentation to the hospital, patient was noted to be afebrile, tachycardic with heart rate in 120s-130s with atrial fibrillation with RVR, blood pressure of 147/117. Labs on presentation showed WBC count of 7900, hemoglobin 14.4, platelet count of 108930. BMP remarkable for sodium of 141, potassium 4.1, BUN of 23,, creatinine 1.1. Chest x-ray showed bilateral infiltrates concerning for pulmonary edema with community-acquired pneumonia not ruled out. Patient will be admitted for decompensated heart failure with underlying atrial fibrillation with RVR. Consultation with Cardiology will be requested. Patient received also IV antibiotics until pneumonia is ruled out. 01/31 patient remains admitted to the PCU, sitting comfortable in the chair, sean rt oriented x3. BP 133/95, heart rate of 102, afebrile, saturating 98% on 2 L nasal cannula. He remains on heparin drip CBC with a hemoglobin 14.0, hematocrit 40.7, white blood cell count 6.7, sodium 141, potassium 3.3, BUN of 22, creatinine 1.2, magnesium 1.9, liver enzymes unremarkable. Toxicology screen positive for marijuana. Serology test to include influenza and SARS anti gen negative. Chest x-ray findings consistent pneumoniae, cardiomegaly, Doppler of the lower extremities no evidence of DVT, CT chest no evidence of PE, bilateral pleural effusion, bilateral basilar pneumoniae, echocardiogram pending. Cardiology input noted and appreciated, recommended reducing metoprolol dose, continue with IV diuresis. Pulmonary input noted and appreciated, continue the patient on broad-spectrum IV antibiotics with doxycycline 100 mg p.o. b.i.d. , continue Rocephin 1 g IV q.12 hours, continue CIWA protocol. Monitor for signs of withdrawal. 02/01 patient remains admitted to the PCU, he is sitting in the bed, watching TV, blood pressure 149/104, afebrile, he is saturating 984 through 95% on 2 L nasal cannula. He remains on heparin drip Feels mildly short of breath. No chest pain. Hemoglobin today 13.5, hematocrit 40.0, WBC 6.1, platelet count of 126. Sodium 140, potassium 3.4, BUN of 19, creatinine 0.9. Ultrasound soft tissue of the neck done yesterday as the patient with prominent left external jugular vein was unremarkable. No evidence of hematoma or fluid collection or other abnormalities. Echocardiogram reported as follows Conclusion The left ventricle is dilated. There is global hypokinesis of the left ventricle. LVEF is 20-25%. 3D volume EF 22%. The LV diastolic function was unable to be assessed due to atrial arrhythmia. Severe biatrial enlargement The right ventricle is dilated with reduced systolic function. RV FAC 8% Mild aortic regurgitation. Mild mitral regurgitation. Mild tricuspid regurgitation. Mild pulmonic regurgitation. Negative bubble study. Upon my physical examination, patient alert oriented x3, bibasilar crackles noted, chest x-ray, ABG requested, patient is scheduled to receive furosemide 40 mg IV at 1:00 p.m., we will give it now. We will continue closely monitoring of the patient. 02/02 patient remains admitted to the PCU, comfortable in bed watching TV, alert oriented x3, blood pressure 149/98, heart rate of 117, saturating 90 3% on room air. CBC with a hemoglobin 13.7, hematocrit 41.2, WBC 6.1, platelet count 122. Patient's sodium 142, potassium 3.2, magnesium 2.0. Patient was complaining of shortness a breath yesterday, Lasix 40 mg IV x1 was given, ABG reviewed, pH 7.43, pCO2 29, PO2 99.9, with a bicarbonate of 19.4. Repeat chest x-ray shows bilateral pulmonary infiltrates suggestive of pulmonary vascular congestion with possible superimposed pneumonitis. Urine Legionella antigen negative. Continue current IV antibiotics. We will request Infectious Disease consultation. Continue to follow Pulmonary input and recommendation. Patient has been started on digoxin. Continue metoprolol IV as needed, continue furosemide 40 mg IV q.8 hours. We will give potassium chloride 40 mEq p.o. x1 two keep potassium level above four, magnesium above two. Patient remains on heparin drip, continue to monitor platelet count in a.m. 02/03 patient remains admitted to the PCU, blood pressure 155/107, heart rate of 56, afebrile, saturating 94% on room air, hemoglobin 13.9, hematocrit 40.8, WBC 6.1, platelet count slowly improving 129. Sodium 140, potassium 3.8, BUN of 18, creatinine 1.0, magnesium 1.8, total bili I 0.1, liver enzymes unremarkable, sputum culture Gram-positive cocci in chains and clusters, rare Gram-negative rods. Patient remains on cefepime and doxycycline IV, continue to follow Pulmonary input and recommendation, we will request ID consultation. The patient was started on digoxin yesterday by senior commercial loan officer, at 56, continue to follow Cardiology input and recommendation. During my visit the patient is comfortably in bed, alert oriented x3, denies chest pain, denies shortness for breath, no nausea, no vomiting. We will downgraded to the medical floor, we will get PT to evaluate the patient, anticipate discharge home in the next 24 hours, discussed with the patient and at bedside, in agreement. REVIEW OF SYSTEMS CONSTITUTIONAL: Denies fevers, chills, or night sweats. No unintentional weight loss reported. NEUROLOGICAL: Denies headache, amaurosis fugax, motor weakness, sensory deficit, vertigo/spinning sensation, gait abnormalities, or tremors. ENT: No hearing loss, otalgia, otorrhea, rhinitis, rhinorrhea, hoarseness, or sore throat. CARDIOVASCULAR: Shortness of breath, dyspnea on exertion, PND, orthopnea PULMONARY: Denies any shortness of breath, cough, phlegm/sputum, hemoptysis, pleuritic chest pain. SLEEP: Denies morning headaches, daytime somnolence or napping. Denies difficulty falling asleep, staying asleep, waking from sleep. Denies knowledge of snoring. GASTROINTESTINAL: Denies any type of dysphagia to either liquids or solids. Denies nausea, vomiting, pyrosis, early satiety, abdominal pain, diarrhea, constipation, or changes in stool consistency or caliber. Denies coffee-ground emesis, hematemesis, hematochezia, or melanotic stools. GENITOURINARY: Denies frequency, urgency, nocturia, hematuria or incontinence (Storage/Irritative symptoms.) Low urinary stream, straining to void, urinary intermittency or hesitancy, splitting of the voiding stream, terminal dribbling. ENDOCRINOLOGIC: Denies polyuria, polydipsia, polyphagia or heat/cold intolerances. HEMATOLOGIC: Denies thrombophilia/previous clots, or coagulopathy/bleeding disorders. ONCOLOGIC: Denies personal history of malignancy. DERMATOLOGIC: Denies rashes or pruritus. PSYCHIATRIC: Denies any suicidal or homicidal ideation. Denies hallucinations. PHYSICAL EXAM GENERAL APPEARANCE: The patient is awake, alert, and oriented, in no acute cardiopulmonary distress. NEUROLOGICAL: Cranial nerves II-XII grossly intact. Motor is 5/5 in bilateral upper and lower extremities proximal to distal. No sensory deficits. HEENT: Face is symmetric. Pupils are equal and reactive. Extraocular movements are intact. NECK: Supple. No JVD. No thyromegaly. No submental, submandibular, pre- /postauricular, occipital or supraclavicular lymphadenopathy. CHEST: Normal chest expansion. No Telemetry. LUNGS: Crackles, no wheeze CARDIOVASCULAR: Irregularly irregular. S1 and S2 normal. No appreciable rubs, murmurs or gallops. ABDOMEN: Soft, nontender, and nondistended. There is no rebound, voluntary guarding, or rigidity. : Deferred. No Winston. EXTREMITIES: 2+ pitting edema of the lower extremities SKIN: No skin breakdown. Vital Signs (last 8hr) Date Time Temp Pulse Resp B/P (MAP) Pulse Ox O2 Delivery O2 Flow Rate FiO2 02/03/25 07:57 98.1 56 18 155/107 94 Room Air 02/03/25 06:22 70 18 N/A Room Air 21 02/03/25 06:20 71 18 02/03/25 04:00 98.2 53 22 178/94 93 Room Air LABS: Laboratory: Test 02/03/25 03:30 02/02/25 05:18 02/01/25 17:58 02/01/25 10:46 Range/Units White Blood Count 6.1 4.8-10.8 K/uL Red Blood Count 4.13 L 4.50-6.20 MIL/uL Hemoglobin 13.9 L 14.0-18.0 g/dL Hematocrit 40.9 L 42-54 % Mean Corpuscular Volume 99.0 79-99 fL Mean Corpuscular Hemoglobin 33.7 H 27.0-33.0 pg Mean Corpuscular Hemoglobin Concent 34.0 32.0-36.0 g/dL Red Cell Distribution Width 14.5 11.0-15.5 % Platelet Count 129 L 130-400 K/uL Mean Platelet Volume 13.5 H 7.5-10.5 fL Nucleated Red Blood Cells 0.0 0.0-0.19 % Sodium Level 140 136-145 mmol/L Potassium Level 3.8 3.5-5.1 mmol/L Chloride Level 104 101-111 mmol/L Carbon Dioxide Level 29 21-32 mmol/L Blood Urea Nitrogen 18 7-18 mg/dL Creatinine 1.0 0.5-1.3 mg/dL Glomerular Filtration Rate Calc 83 >90 mL/min Random Glucose 99 70-105 mg/dL Total Calcium 8.1 L 8.5-10.1 mg/dL Magnesium Level 1.90 1.80-2.40 mg/dL Total Bilirubin 1.1 H 0.2-1.0 mg/dL Aspartate Amino Transf (AST/SGOT) 26 10-37 U/L Alanine Aminotransferase (ALT/SGPT) 31 12-78 U/L Alkaline Phosphatase 99 50-136 U/L Total Protein 6.5 6.0-8.3 g/dL Albumin 3.1 L 3.5-5.0 g/dL Digoxin Level 0.52 0.50-2.00 ng/mL Whole Blood Glucose 83 70-110 MG/DL Prothrombin Time 11.4 9.6-11.6 SEC Prothromb Time International Ratio 1.08 0.85-1.15 Activated Partial Thromboplast Time 56.9 H 26.3-35.5 SEC Blood Gas Specimen Type Arterial Arterial Blood pH 7.438 7.350-7.450 Arterial Blood Partial Pressure CO2 29 L 35-48 mmHg Arterial Blood Partial Pressure O2 99.9 83.0-108.0 mmHg Arterial Blood HCO3 19.4 L 21.0-28.0 mmol/L Arterial Blood Oxygen Saturation 97.8 94.0-98.0 % Arterial Blood Base Excess -3.4 L -2.0-3.0 mmol/L Blood Gas Temperature 37.0 35.5-37.0 CELSIUS Blood Gas Flow-by 4.00 0.00-15.00 L/min Blood Gas Vent Mode 4LNC ROOM AIR FiO2 36.0 % Blood Gas Specimen Comment RR CANDICE Current Medications Medications (Trade) Dose Ordered Sig/Nataly Route PRN Reason Start Time Stop Time Status Last Admin Dose Admin Acetaminophen (TYLenol 325MG TAB) 650 mg Q6H PRN PO MILD PAIN (1-3) 01/30/25 13:00 03/01/25 12:59 Apixaban (EliquIS) 5 mg BID PO 02/02/25 21:00 03/04/25 20:59 02/02/25 22:12 5 MG Budesonide (Pulmicort 0.5 Mg/2ml) 0.5 mg BIDRESP IH 01/30/25 18:00 03/01/25 17:59 02/03/25 06:20 0.5 MG Cefepime HCl (MAXipime 1 GM vial) 1 gm Q8H IVPB 02/02/25 13:00 02/12/25 12:59 02/03/25 05:19 1 GM Ceftriaxone Sodium (ROCEphine 1G INJ) 1 gm Q12H IVPB 01/30/25 13:00 02/01/25 17:22 DC 02/01/25 12:53 1 GM Chlordiazepoxide HCl (LIBrium 25 MG CAP) 25 mg Q4H PRN PO ALCOHOL WITHDRAWAL PROTOCOL 01/30/25 14:30 02/06/25 14:29 02/01/25 20:49 25 MG Digoxin (LANOxin 125mcg) 125 mcg DAILY PO 02/03/25 09:00 03/05/25 08:59 Digoxin (LANOxin 250 MCG/ ML 2ML AMP) 250 mcg ONCE IV 02/02/25 08:30 02/02/25 11:21 DC Digoxin (LANOxin 250 MCG/ ML 2ML AMP) 250 mcg ONCE IV 02/02/25 08:30 02/02/25 11:21 DC Doxycycline Hyclate (Doxycycline Hyclate) 100 mg BID PO 01/30/25 21:00 02/04/25 20:59 02/02/25 22:12 100 MG Folic Acid (FOLic ACID 1 MG TABLET) 1 mg DAILY PO 01/31/25 09:00 02/02/25 09:01 DC 02/02/25 08:56 1 MG Furosemide (LASix 40MG VIAL) 40 mg Q12H IV 01/30/25 13:00 02/01/25 13:06 DC 02/01/25 00:31 40 MG Furosemide (LASix 40MG VIAL) 40 mg Q8H IV 02/01/25 16:00 03/03/25 15:59 02/03/25 06:39 40 MG Heparin Sodium (Porcine) (HEParin 5,000 UNIT VIAL) *calculation based on ACTUAL B... AD PRN IV HEPARIN PROTOCOL 01/30/25 15:00 02/02/25 11:41 DC 01/30/25 15:26 8,000 UNIT Heparin Sodium/ Dextrose 250 ml @ 0 mls/hr Q6H IV 01/30/25 15:00 02/02/25 11:39 DC 02/01/25 18:55 14.2 MLS/HR Hydralazine HCl (APRESOLine 20MG INJ) 10 mg Q6H PRN IV ADMINISTER FOR SBP > 170 01/30/25 14:00 03/01/25 13:59 02/01/25 08:32 10 MG Ipratropium Economy (AtrovENT UD) 0.5 mg Q6H PRN IH SHORTNESS OF BREATH 01/31/25 06:00 03/02/25 05:59 Lactulose (Constulose 20gm/ 30ml Udcup) 20 gm BID PO 02/01/25 21:00 03/03/25 20:59 02/02/25 22:12 20 GM Lorazepam (AtiVAN) 1 mg Q4H PRN IVP ALCOHOL WITHDRAWAL PROTOCOL 01/30/25 14:30 02/03/25 08:27 DC Losartan Potassium (CozAAR 50 mg TAB) 50 mg Q24H PO 01/30/25 14:30 03/01/25 14:29 02/02/25 13:50 50 MG Magnesium Sulfate 50 ml @ 0 mls/hr PROTOCOL IV 01/30/25 13:30 03/01/25 13:29 02/01/25 08:34 1.9 MLS/HR Metoprolol Tartrate (loprESSOR) 5 mg AD PRN IV OTHER [SEE ORDER COMMENTS] 01/30/25 14:30 01/31/25 14:29 DC Metoprolol Tartrate (loprESSOR) 5 mg AD PRN IV INCREASED HEART RATE >100 BPM 02/01/25 20:30 02/01/25 20:49 5 MG Metoprolol Tartrate (loprESSOR) 12.5 mg BID PO 01/31/25 07:30 02/01/25 20:29 DC 02/01/25 08:31 12.5 MG Metoprolol Tartrate (loprESSOR) 25 mg BID PO 02/01/25 21:00 02/02/25 08:08 DC 02/01/25 20:48 25 MG Metoprolol Tartrate (loprESSOR) 25 mg TID PO 01/30/25 21:00 01/31/25 07:30 DC 01/30/25 20:39 25 MG Multivitamins Therapeutic (Multivitamin Tablet) 1 tab DAILY PO 01/31/25 09:00 03/02/25 08:59 02/02/25 08:56 1 TAB Nitroglycerin (Nitrostat) 0.4 mg AD PRN SL CHEST PAIN 01/30/25 13:00 03/01/25 12:59 Ondansetron HCl (zoFRAN 4MG INJ) 4 mg Q6H PRN IVP NAUSEA/VOMITING 01/30/25 13:00 03/01/25 12:59 Pantoprazole Sodium (PROTonix 40MG INJ) 40 mg Q24H IVP 01/30/25 13:00 03/01/25 12:59 02/02/25 12:30 40 MG Pharmacy Profile Note (Pharmacy Communication) 1 each PROTOCOL PRN MISC ETOH Withdrawal Score changes 01/30/25 14:30 02/06/25 14:29 Potassium Chloride 100 ml @ 100 mls/hr AD PRN IV POTASSIUM PROTOCOL 01/30/25 13:30 03/01/25 13:29 Potassium Chloride (K-Dur/Klor-Con 20meq) 20 meq AD PRN PO POTASSIUM PROTOCOL 01/30/25 13:30 03/01/25 13:29 02/03/25 06:37 20 MEQ Potassium Chloride (K-Dur/Klor-Con 20meq) 20 meq BID PO 02/01/25 21:00 03/03/25 20:59 02/02/25 22:17 20 MEQ Potassium Chloride (KCl 10% Elixir 20meq/15ml) 20 meq AD PRN PO POTASSIUM PROTOCOL 01/30/25 13:30 03/01/25 13:29 02/01/25 08:33 20 MEQ DIAGNOSTICS / RADIOLOGY: [ ] ASSESSMENT: Acute on chronic Systolic and Diastolic heart failure exacerbation, (CHADS Vasc score of at least 3),POA Dilated cardiomyopathy, with a ejection fraction 20-25%, LV dilated. Acute hypoxemic respiratory failure, POA Atrial fibrillation with RVR, POA History of medical noncompliance, POA Uncontrolled hypertension, POA History of polysubstance abuse with tobacco and alcohol, POA Prior history of cocaine use, POA BPH, POA Thrombocytopenia on heparin drip PLAN: patient remains admitted to the PCU, blood pressure 155/107, heart rate of 56, afebrile, saturating 94% on room air, hemoglobin 13.9, hematocrit 40.8, WBC 6.1, platelet count slowly improving 129. Sodium 140, potassium 3.8, BUN of 18, creatinine 1.0, magnesium 1.8, total bili I 0.1, liver enzymes unremarkable, sputum culture Gram-positive cocci in chains and clusters, rare Gram-negative rods. Patient remains on cefepime and doxycycline IV, continue to follow Pulmonary input and recommendation, we will request ID consultation. The patient was started on digoxin yesterday by senior commercial loan officer, at 56, continue to follow Cardiology input and recommendation. NEURO: Minimize central acting medications as possible. Fall Precautions. Well lighted room through the day and minimize interruptions through the night to prevent acute delirium. PULMONARY: Supplemental 02 as needed BiPAP as necessary, for respiratory distress Titrate Fio2 to keep Spo2 > or = 90% DuoNebs and CPT as needed IS hourly while awake for pulmonary hygiene prn Out of bed to chair as tolerated Maintain aspiration precautions at all times CARDIOVASCULAR: Follow hemodynamics. Vital signs per facility protocol GI & NUTRITION: Continue nutritional support Aspirations precautions Prokinetic agents and laxatives as needed KIDNEYS & ELECTROLYTES: Strict monitoring of intake and output Daily weights Avoid nephrotoxic agents Monitor electrolytes and replace as needed Goal urine output of 30mL/hr or 0.5mL/kg/hr Medications to be dosed according to renal function. Avoid contrast if possible ENDOCRINE: Maintain blood glucose between 100-180 at all times. Insulin sliding scale for blood glucose management Hypoglycemia and hyperglycemia protocol in place INFECTIOUS DISEASE: Trend temperature, WBC and procalcitonin level Follow cultures, deescalate antibiotics as soon as possible. Panculture if new onset fever HEMATOLOGY & COAGULATION: Monitor H&H. Keep Hgb > 7 Transfuse 1 unit of PRBC for Hgb < 7 Transfuse 1 pack of platelets of platelets < 20, 000 Watch for any signs and symptoms of bleeding SKIN: Pressure ulcer prevention per facility protocol Specialty mattress as needed ORTHO/REHAB Continue PT/OT PRN: MEDICATIONS Tylenol 650 mg po every 4 hrs for fever zofran 4 mg IV every 6 hrs for n/v Hydralazine 5 mg IV every 4 hrs systolic pressure > 160 bowel regiment: lactulose 20 gm PO BID PRN constipation Supportive measures: Continue GI and DVT prophylaxis Disposition: Pending improvement in clinical condition All questions answered time spent: > 35 min FIFI HOROWITZ MD Feb 03, 2025 09:06
[2025-02-03] MEDS: DIGOxin 125 MCG TABLET PO SCH (10:01)
--- NOTE | 2025-02-03 10:24 | CONS ---
INFECTIOUS DISEASE CONSULTATION NOTE DATE OF SERVICE: 02/02/2025 REQUESTING PHYSICIAN: Levon Harper MD. REASON FOR CONSULTATION: Pneumonia. HISTORY OF PRESENT ILLNESS: This is a 64-year-old male with history of chronic alcohol use, tobacco use, and atrial fibrillation who presented to the hospital with cough and shortness of breath. The patient also complained of orthopnea and PND. No fever or chills. Imaging has been done, which showed the patient to have pneumonia. The patient also found with CHF. The patient uses alcohol, tobacco, and marijuana. The patient has been started on doxycycline. PAST MEDICAL HISTORY: * Atrial fibrillation. * Alcohol abuse. * Chronic tobacco use. * Marijuana use. * History of arthritis. * Obesity. * Hypertension. PAST SURGICAL HISTORY: * Left total knee arthroplasty. * Back surgery. * Cystoscopy. ALLERGIES: No known drug allergy. CURRENT MEDICATIONS: Reviewed. SOCIAL HISTORY: The patient uses alcohol, tobacco, and marijuana. FAMILY HISTORY: Noncontributory. REVIEW OF SYSTEMS: CONSTITUTIONAL: Denies fever or chills. No weight loss or night sweats. EYES: No eye pain. No photophobia or diplopia. HENT: No sore throat. No rhinorrhea or earache. NECK: No neck pain or neck swelling. RESPIRATORY: Positive for cough. No hemoptysis or pleuritic pain. CARDIOVASCULAR: No chest pain. No palpitations or orthopnea. GASTROINTESTINAL: Denies nausea, vomiting. No abdominal pain. GENITOURINARY: No dysuria, urgency, or urinary frequency. CENTRAL NERVOUS SYSTEM: No headache, dyspnea, or slurred speech. PSYCHIATRY: No depression. No suicidal ideation. MUSCULOSKELETAL: No joint pain or joint swelling. PHYSICAL EXAMINATION: GENERAL: Elderly male, awake. VITAL SIGNS: Temperature 98.6, pulse 117, respiratory rate 18, BP 149/98. EYES: No icterus. Pupils are equal and reactive. HENT: No oral thrush seen. Moist oral mucosa. NECK: Supple. No JVD or thyromegaly. LUNGS: Good air entry. No rales. No rhonchi. CARDIOVASCULAR: S1, S2 regular. No murmur heard. ABDOMEN: Full. Soft. Nontender. Bowel sound is present. CENTRAL NERVOUS SYSTEM: Awake, alert, oriented x 3. No focal deficits. SKIN: No rashes. No itchiness. LYMPHATIC: No peripheral lymphadenopathy. BACK: No deformity. No pressure ulcer. HEMATOLOGIC: No bleeding or petechial lesions seen. MUSCULOSKELETAL: No joint swelling, erythema, or tenderness. LABORATORY DATA: Sodium 142, potassium 3.2, BUN 21, creatinine 1.1. WBC is 6.1, hemoglobin 13.2, platelets 122. Urine toxicology positive for pneumonia. Influenza antigen negative. Legionella antigen negative. Sputum culture, no growth. RADIOLOGY DATA: CT angiogram shows no evidence of pulmonary positive for bilateral pneumonia. ASSESSMENT: A 64-year-old male presented with cough and shortness of breath. CURRENT PROBLEMS: Include: * Multifocal pneumonia. * Hypoxic respiratory failure. * Hjqln-[id number] heart failure, systolic. * Hypokalemia. * Chronic alcohol use. * Chronic tobacco use. PLAN: * Continue doxycycline. * Start the patient on cefepime. * Continue pain management. * Continue antihypertensive. * Continue Lasix. * Continue oxygen. * Continue DVT prophylaxis. * The patient will be followed up closely. Thank you for allowing me to participate in the care of this patient. TID: [id number] RECEIPT: [id number]
--- NOTE | 2025-02-03 11:45 | HMCIMG ---
CHEST 1VW HISTORY: CHF COMPARISON: 02/02/2025 FINDINGS: A frontal projection of the chest was obtained. There are bilateral pulmonary infiltrates suggestive of pulmonary vascular congestion with possible superimposed pneumonitis. The heart is borderline enlarged. Degenerative changes are seen. No evidence of aortic calcification is seen. IMPRESSION: 1. Bilateral pulmonary infiltrates are seen suggestive of pulmonary vascular congestion with possible superimposed pneumonitis. Mild interval improvement is seen.
--- NOTE | 2025-02-03 12:05 | NUR ---
TELEMETRY 1158-THIS RN WAS COVERING FOR PATIENT'S ASSIGNED FLOOR RN, WHEN TELEMETRY CALLED STATING PATIENT'S HEART RATE UP TO 131 IN ATRIAL FIBRILLATION AND SUSTAINING FOR 5 MINUTES. PATIENT ALERT, ORIENTED WITH NO COMPLAINTS OF CHEST PAIN, PALPITATIONS OR SHORTNESS OF BREATHE. PATIENT EATING LUNCH. PATIENT HAD ALREADY RECEIVED HIS MORNING DIGOXIN. PRN METOPROLOL IVP GIVEN. 1205-CALLED TELEMETRY AND ASKED FOR FOLLOW UP ON HIS HEART RATE. HEART RATE NOW DECREASED TO 110S; ATRIAL FIBRILLATION. NOTIFIED CAMILA Rodriguez ATTENDING ABOUT CURRENT PATIENT SITUATION, INTERVENTIONS, AND RESPONSE TO TREATMENT.
--- NOTE | 2025-02-03 18:15 | PN ---
[facility] PROGRESS NOTE Date Patient Seen: Feb 03, 2025 Time of Visit: 18:13 Supervising Physician: Dr. Lackey Primary Care Physician: Dr. Ochoa Serrato Outpatient Specialists: [ ] Inpatient Consults: PROBLEM LIST: 1. Acute hypoxemic respiratory failure -requiring supplemental oxygen 2. Acute diastolic and systolic heart failure (awaiting echocardiogram results) 3. Atrial fibrillation with RVR, POA -[id number] score of 2/HasBled score of 4 per Cardiology consult patient is started heparin drip 4. 50 year pack smoker, recently quit 5. Polysubstance abuse: Positive THC -previous admission positive for cocaine 6. Alcohol abuse -patient reports drinking case of beer three to 4 times a week 7. Hypertension, uncontrolled 8. Medication noncompliance INTERVAL HISTORY: 01/31/2025: At the time of my evaluation, the patient lying in bed. The staff nurse reports no acute events overnight. The patient reports feeling much better today. Vital signs showed oxygen supplementation via nasal cannula with optimal oxygen saturation and remaining parameters are unremarkable. Laboratory data in unremarkable except for a slightly low potassium of 3.3. Microbiology data showing GPC in sputum. Imaging of the chest was negative for PE. The patient continue on diuretic therapy and metoprolol for rate control. No other complaint. 02/01/2025: At the time of my evaluation, the patient was sitting up in bed. The staff nurse reports the patient had a shortness of breaths episode this a.m. and reports feeling better after a large burping episode. He remains on nasal cannula for oxygen supplementation and remaining vital sign parameters were unremarkable. Also, the patient had a repeat episode of bradycardia possibly related to the use of his beta michael therapy. Laboratory data was unremarkable except for a slightly low potassium of 3.4 And a elevated bilirubin of 1.1. The patient continues on antibiotic therapy with Rocephin and doxy. Sputum culture resulted positive for oral song. No other complaint. 02/02/2025: At the time of my evaluation, the patient was sitting up in bed. He reports feeling much better today. Currently, the patient is on room air with optimal oxygen saturation. He is borderline tachycardic, eupneic and normotensive. Laboratory data was remarkable for a potassium of 3.2 which later corrected to 3.7 And a total bili of 1.2 No liver enzyme elevation. Sputum culture resulted with normal oropharyngeal song. Chest x-ray today, showed pneumonic infiltrate/vascular congestion, greater on the right. Currently, the patient remains on diuretic therapy with furosemide and is on antibiotic therapy with doxycycline. He also remains on a heparin drip and Lopressor. No other complaint. 02/03/2025: At the time of my evaluation, the patient was lying in bed. Per the staff nurse, the patient had a AFib events earlier today. He remains on room air with optimal oxygen saturation and is eupneic. Heart rate with tachy- eli trend, blood pressure is slightly elevated. I's and O's showed output of 1300 mL and a net balance of -575.0. Laboratory data today were generally unremarkable. Chest x-ray showed bilateral pulmonary infiltrates and pulmonary vascular congestion. Currently, the patient remains on antibiotic therapy with cefepime and doxy. Patient was started on Eliquis5 mg p.o. b.i.d. and is so far tolerating well. He also remains on Lasix 40 q.8h. no other complaint. REVIEW OF SYSTEMS: 12 point ROS reviewed with patient. Pertinent positives mentioned above. Otherwise negative. PHYSICAL EXAM: GENERAL: Alert, weak, awake oriented x 3 HEENT: EOMI, Sclera non icteric, moist mucosa NECK: Supple, no JVD, trachea midline LUNGS: Clear breath sounds bilaterally. No wheezes HEART: Irregular rate, accelerated rhythm, atrial fib, no murmur ABD: Abdomen tense, distended, Bowel sounds present EXT: Clubbing bilateral lower extremities, pitting dependent edema, NEURO: Alert and oriented to person, follows commands Vital Signs (last 8hr) Date Time Temp Pulse Resp B/P (MAP) Pulse Ox O2 Delivery O2 Flow Rate FiO2 02/03/25 15:56 98.1 44 18 166/76 95 Room Air 02/03/25 11:55 134 151/107 02/03/25 11:50 97.9 54 18 151/107 94 Room Air 02/03/25 11:00 63 LABS: Hematology Labs: Test 02/03/25 03:30 Range/Units White Blood Count 6.1 4.8-10.8 K/uL Red Blood Count 4.13 L 4.50-6.20 MIL/uL Hemoglobin 13.9 L 14.0-18.0 g/dL Hematocrit 40.9 L 42-54 % Mean Corpuscular Volume 99.0 79-99 fL Mean Corpuscular Hemoglobin 33.7 H 27.0-33.0 pg Mean Corpuscular Hemoglobin Concent 34.0 32.0-36.0 g/dL Red Cell Distribution Width 14.5 11.0-15.5 % Platelet Count 129 L 130-400 K/uL Mean Platelet Volume 13.5 H 7.5-10.5 fL Nucleated Red Blood Cells 0.0 0.0-0.19 % Chemistry Labs: Test 02/03/25 03:30 02/02/25 05:18 Range/Units Sodium Level 140 136-145 mmol/L Potassium Level 3.8 3.5-5.1 mmol/L Chloride Level 104 101-111 mmol/L Carbon Dioxide Level 29 21-32 mmol/L Blood Urea Nitrogen 18 7-18 mg/dL Creatinine 1.0 0.5-1.3 mg/dL Glomerular Filtration Rate Calc 83 >90 mL/min Random Glucose 99 70-105 mg/dL Total Calcium 8.1 L 8.5-10.1 mg/dL Magnesium Level 1.90 1.80-2.40 mg/dL Total Bilirubin 1.1 H 0.2-1.0 mg/dL Aspartate Amino Transf (AST/SGOT) 26 10-37 U/L Alanine Aminotransferase (ALT/SGPT) 31 12-78 U/L Alkaline Phosphatase 99 50-136 U/L Total Protein 6.5 6.0-8.3 g/dL Albumin 3.1 L 3.5-5.0 g/dL Whole Blood Glucose 83 70-110 MG/DL DIAGNOSTICS / RADIOLOGY RESULTS: [ ] PLAN 01/31/2025: For now, we are going to continue current management for the patient. We are going to continue diuretic therapy as ordered. Per Cardiology, decrease metoprolol due to excessive rate slowing. We are going to continue to correct electrolyte imbalance. We will repeat labs in a.m. I discussed the findings and plan for further management with the patient. Also addressed the importance of medication compliance. We will monitor the patient's progress and response to management. We will continue to provide general supportive care, GI and DVT prophylaxis. Further orders per attending MD and hospital course. 02/01/2025: For now, we are going to continue current management for the patient. He will remain on oxygen supplementation via nasal cannula. Per the Cardiology team, they recommended to consult the EPS due to SSS. I am going to request a chest x-ray and a KUB due to his episode earlier this a.m.. The patient will continue on antibiotic therapy with doxy to complete a five day course to end on 02/04/2025, we will discontinue the IV Rocephin. We will repeat surveillance labs in the morning. I discussed the findings and plan for further management with the patient. We will monitor the patient's progress and response to management. We will continue to provide general supportive care, GI and DVT prophylaxis. Further orders per attending MD and hospital course. 02/02/2025: For now, going to continue current management for the patient. Per the pest control specialist's input, the patient will be loaded with digoxin and anticoagulation therapy we will be changed to Eliquis. He will remain on diuretic therapy. Primary MD consulted infectious disease specialist who started the patient on cefepime and currently remains on doxy. We will repeat surveillance labs in the morning. I discussed the findings and plan for further management with the patient. We will monitor the patient's progress and response to management. We will continue to provide general supportive care, GI and DVT prophylaxis. Further orders per attending MD and hospital course. 02/03/2025: For now, going to continue current management for the patient. Primary MD consulted Infectious Disease specialist, I am going to defer antibiotic guidance by the Infectious Disease specialist. The patient will continue with diuretic therapy as ordered, antiarrhythmic and we will monitor for any bleed on anticoagulation therapy. We will defer further cardiac management of the Cardiology team. I discussed the findings and plan for further management with the patient. We will monitor the patient's progress and response to management. We will continue to provide general supportive care, GI and DVT prophylaxis. Further orders per attending MD and hospital course. NEURO: Minimize central acting medications as possible. Maintain fall precautions, adequate lighting during the day PULMONARY: Supplemental 02 as needed. Maintain aspiration precautions at all times Humidified oxygen Albuterol breathing treatments Pulmicort q.12 hours CARDIOVASCULAR: Follow hemodynamics. Vital signs per facility protocol GI & NUTRITION: Continue with nutritional support. Continue stool softeners and laxatives as needed. KIDNEYS & ELECTROLYTES: Strict monitoring of intake, output and overall fluid balance. Avoid nephrotoxic medications to the extent possible. Medications to be dosed according to renal function. Monitor electrolytes and replace as needed ENDOCRINE: Maintain blood glucose between 100-180 at all times. Hypoglycemia protocol in place Sliding scale insulin INFECTIOUS DISEASE: Trend temperature, WBC and procalcitonin level Follow cultures, deescalate antibiotics as soon as possible. Panculture if new onset fever ONCOLOGY/HEMATOLOGY/COAGULATION: Monitor for s/s of bleeding Monitor hemoglobin, coagulation studies as needed SKIN: Pressure ulcer prevention per facility protocol Specialty mattress ORTHO/REHAB: Continue PT/OT Prophylaxis: Continue GI and DVT prophylaxis Code Status: Full Resuscitation Disposition: TBD Other: Patient was seen and case discussed with giovanni [facility]I. Plan of care was discussed and agreed upon. LUIS MARTIN SEEING EYE DOG TEACHER Feb 03, 2025 18:15
--- NOTE | 2025-02-03 18:15 | PN ---
INFECTIOUS DISEASE PROGRESS NOTE Date of Service: Feb 03, 2025 SUBJECTIVE: This is a 64-year-old male patient who was seen and examined at bedside in room 231. Patient is awake, alert and oriented x3. No dyspnea observe and patient is saturating 94-95% on room air. No fever, temperature is 97.9. No growth reported yet on the sputum culture. We will continue on cefepime and doxycycline and follow up on the final culture results. We will repeat blood culture. PHYSICAL EXAM EYES: Anicteric. Pupils equal and reactive. HENT: No oral thrush seen, moist Oral mucosa NECK: Supple, no JVD or thyromegaly. LUNGS: Good air entry. No rales, no rhonchi. CARDIOVASCULAR: S1, S2 regular. No murmur heard. ABDOMEN: Soft, non tender, bowel sounds present, no organomegaly CENTRAL NERVOUS SYSTEM: Awake, alert, oriented x 3. No focal deficits. SKIN: No rashes, no swelling. LYMPHATICS: No peripheral lymphadenopathy MUSCULOSKELETAL: No joint swelling, erythema or tenderness. EXTREMITIES: No cyanosis or clubbing BACK: No deformity, no pressure ulcer. GENITOURINARY: No dysuria or hematuria Vital Sign (Last 12 Hours) 02/03/25 02/03/25 02/03/25 02/03/25 06:20 06:22 07:15 07:57 Temp 98.1 Pulse 71 70 56 Resp 18 18 18 B/P (MAP) 155/107 Pulse Ox 94 94 O2 Delivery N/A Room Air Nasal Cannula* Room Air O2 Flow Rate 4 FiO2 21 36 02/03/25 02/03/25 02/03/25 02/03/25 10:01 11:00 11:50 11:55 Temp 97.9 Pulse 60 63 54 134 Resp 18 B/P (MAP) 151/107 151/107 Pulse Ox 94 O2 Delivery Room Air 02/03/25 15:56 Temp 98.1 Pulse 44 Resp 18 B/P (MAP) 166/76 Pulse Ox 95 O2 Delivery Room Air Intake & Output (last 24hrs) 02/02/25 02/02/25 02/03/25 15:00 23:00 07:00 Intake Total 425 ml 300.0 ml Output Total 500 ml 800 ml Balance 425 ml -200.0 ml -800 ml LABS: Laboratory: Test 02/03/25 03:02/02/25 05:18 Range/Units White Blood Count 6.1 4.8-10.8 K/uL Red Blood Count 4.13 L 4.50-6.20 MIL/uL Hemoglobin 13.9 L 14.0-18.0 g/dL Hematocrit 40.9 L 42-54 % Mean Corpuscular Volume 99.0 79-99 fL Mean Corpuscular Hemoglobin 33.7 H 27.0-33.0 pg Mean Corpuscular Hemoglobin Concent 34.0 32.0-36.0 g/dL Red Cell Distribution Width 14.5 11.0-15.5 % Platelet Count 129 L 130-400 K/uL Mean Platelet Volume 13.5 H 7.5-10.5 fL Nucleated Red Blood Cells 0.0 0.0-0.19 % Sodium Level 140 136-145 mmol/L Potassium Level 3.8 3.5-5.1 mmol/L Chloride Level 104 101-111 mmol/L Carbon Dioxide Level 29 21-32 mmol/L Blood Urea Nitrogen 18 7-18 mg/dL Creatinine 1.0 0.5-1.3 mg/dL Glomerular Filtration Rate Calc 83 >90 mL/min Random Glucose 99 70-105 mg/dL Total Calcium 8.1 L 8.5-10.1 mg/dL Magnesium Level 1.90 1.80-2.40 mg/dL Total Bilirubin 1.1 H 0.2-1.0 mg/dL Aspartate Amino Transf (AST/SGOT) 26 10-37 U/L Alanine Aminotransferase (ALT/SGPT) 31 12-78 U/L Alkaline Phosphatase 99 50-136 U/L Total Protein 6.5 6.0-8.3 g/dL Albumin 3.1 L 3.5-5.0 g/dL Digoxin Level 0.52 0.50-2.00 ng/mL Whole Blood Glucose 83 70-110 MG/DL ASSESSMENT: Hypoxic respiratory failure, requiring oxygen which has resolved. Multifocal pneumonia. Hypokalemia, resolving. Atrial fibrillation Polysubstance abuse. Coronary artery disease. PLAN: Repeat blood culture. Continue cefepime. Continue doxycycline Continue GI prophylaxis. Continue oxygen support. We will follow up on the cultures results. Discharge planning for tomorrow if stable. This case was reviewed and discussed with my supervising physician and the above assessment and plan was formulated and agreed upon. ATTESTATION BY PHYSICIAN I have seen and examined the patient. I reviewed the documentation, medical decision making, and treatment plan as noted by the mid-level provider above. I agree with the findings and plan of care. MONICA TARIQ MD, [facility] Feb 03, 2025 18:15
[2025-02-04] VITALS (7 sets, daily range): BP systolic 142–152; BP diastolic 79–102; PULSE 69–134; RESP 18–20; TEMP 97.9–98.5; O2SAT 92–94
[2025-02-04 01:09] LABS: MYCOPLASMA AB IGM <770 U/mL (0-769)
[2025-02-04 04:26] LABS: HEMATOCRIT 47.3 % (42-54); MEAN CORPUSCULAR HEMOGLOBIN 33.7 pg (27.0-33.0); MEAN CORPUSCULAR HGB CONC 33.8 g/dL (32.0-36.0); MEAN CORPUSCULAR VOLUME 99.6 fL (79-99); RED BLOOD CELL COUNT(AUTO) 4.75 MIL/uL (4.50-6.20); RED CELL DISTRIBUTION WIDTH 14.2 % (11.0-15.5); WHITE BLOOD COUNT (AUTO) 7.7 K/uL (4.8-10.8)
[2025-02-04 04:53] LABS: ALBUMIN 3.5 g/dL (3.5-5.0); BILIRUBIN,TOTAL 1.3 mg/dL (0.2-1.0); MAGNESIUM 2.1 mg/dL (1.80-2.40); POTASSIUM 3.5 mmol/L (3.5-5.1); TOTAL PROTEIN, SERUM 7.3 g/dL (6.0-8.3)
--- NOTE | 2025-02-04 08:16 | PN ---
[facility] PROGRESS NOTE Date Patient Seen: Feb 04, 2025 Time of Visit: 08:16 Supervising Physician: [ OVI CARPENTER MD ] Primary Care Physician: Dr. Ochoa Serrato Outpatient Specialists: [ ] Inpatient Consults: PROBLEM LIST: 1. Acute hypoxemic respiratory failure -requiring supplemental oxygen 2. Acute diastolic and systolic heart failure (awaiting echocardiogram results) 3. Atrial fibrillation with RVR, POA -[id number] score of 2/HasBled score of 4 per Cardiology consult patient is started heparin drip 4. 50 year pack smoker, recently quit 5. Polysubstance abuse: Positive THC -previous admission positive for cocaine 6. Alcohol abuse -patient reports drinking case of beer three to 4 times a week 7. Hypertension, uncontrolled 8. Medication noncompliance INTERVAL HISTORY: Patient was evaluated today for uncontrolled atrial flutter and known heart failure with preserved ejection fraction (HFpEF). He was resting comfortably on room air and in no apparent distress at the time of evaluation. Vital signs were stable, though he remained in rapid atrial flutter per telemetry. During the encounter, the patient expressed his desire to leave the hospital against medical advice. I thoroughly discussed with the patient the risks of leaving the hospital prematurely, including but not limited to: Progression of atrial flutter to more serious arrhythmias (e.g., atrial fibrillation with RVR, thromboembolic stroke, hemodynamic compromise) Decompensation of diastolic heart failure Potential for readmission or if untreated Patient verbally acknowledged understanding of these risks and declined further inpatient management at this time. He was alert, oriented, and able to articul ate the consequences of his decision. He declined medications or outpatient prescriptions. REVIEW OF SYSTEMS: 12 point ROS reviewed with patient. Pertinent positives mentioned above. Otherwise negative. PHYSICAL EXAM: GENERAL: Alert, weak, awake oriented x 3 HEENT: EOMI, Sclera non icteric, moist mucosa NECK: Supple, no JVD, trachea midline LUNGS: Clear breath sounds bilaterally. No wheezes HEART: Irregular rate, accelerated rhythm, atrial fib, no murmur ABD: Abdomen tense, distended, Bowel sounds present EXT: Clubbing bilateral lower extremities, pitting dependent edema, NEURO: Alert and oriented to person, follows commands Vital Signs (last 8hr) Date Time Temp Pulse Resp B/P (MAP) Pulse Ox O2 Delivery O2 Flow Rate FiO2 02/04/25 07:05 69 18 02/04/25 07:04 72 18 N/A Room Air 21 02/04/25 03:40 98.4 134 20 152/102 94 Room Air LABS: Hematology Labs: Test 02/04/25 04:10 Range/Units White Blood Count 7.7 4.8-10.8 K/uL Red Blood Count 4.75 4.50-6.20 MIL/uL Hemoglobin 16.0 14.0-18.0 g/dL Hematocrit 47.3 42-54 % Mean Corpuscular Volume 99.6 H 79-99 fL Mean Corpuscular Hemoglobin 33.7 H 27.0-33.0 pg Mean Corpuscular Hemoglobin Concent 33.8 32.0-36.0 g/dL Red Cell Distribution Width 14.2 11.0-15.5 % Platelet Count 141 130-400 K/uL Mean Platelet Volume 13.7 H 7.5-10.5 fL Nucleated Red Blood Cells 0.0 0.0-0.19 % Chemistry Labs: Test 02/04/25 04:10 Range/Units Sodium Level 139 136-145 mmol/L Potassium Level 3.5 3.5-5.1 mmol/L Chloride Level 102 101-111 mmol/L Carbon Dioxide Level 30 21-32 mmol/L Blood Urea Nitrogen 18 7-18 mg/dL Creatinine 1.0 0.5-1.3 mg/dL Glomerular Filtration Rate Calc 83 >90 mL/min Random Glucose 97 70-105 mg/dL Total Calcium 9.0 8.5-10.1 mg/dL Magnesium Level 2.10 1.80-2.40 mg/dL Total Bilirubin 1.3 H 0.2-1.0 mg/dL Aspartate Amino Transf (AST/SGOT) 39 H 10-37 U/L Alanine Aminotransferase (ALT/SGPT) 42 12-78 U/L Alkaline Phosphatase 114 50-136 U/L Total Protein 7.3 6.0-8.3 g/dL Albumin 3.5 3.5-5.0 g/dL DIAGNOSTICS / RADIOLOGY RESULTS: [ ] PLAN NEURO: Minimize central acting medications as possible. Maintain fall precautions, adequate lighting during the day PULMONARY: Supplemental 02 as needed. Maintain aspiration precautions at all times Humidified oxygen Albuterol breathing treatments Pulmicort q.12 hours CARDIOVASCULAR: Follow hemodynamics. Vital signs per facility protocol GI & NUTRITION: Continue with nutritional support. Continue stool softeners and laxatives as needed. KIDNEYS & ELECTROLYTES: Strict monitoring of intake, output and overall fluid balance. Avoid nephrotoxic medications to the extent possible. Medications to be dosed according to renal function. Monitor electrolytes and replace as needed ENDOCRINE: Maintain blood glucose between 100-180 at all times. Hypoglycemia protocol in place Sliding scale insulin INFECTIOUS DISEASE: Trend temperature, WBC and procalcitonin level Follow cultures, deescalate antibiotics as soon as possible. Panculture if new onset fever ONCOLOGY/HEMATOLOGY/COAGULATION: Monitor for s/s of bleeding Monitor hemoglobin, coagulation studies as needed SKIN: Pressure ulcer prevention per facility protocol Specialty mattress ORTHO/REHAB: Continue PT/OT Prophylaxis: Continue GI and DVT prophylaxis Code Status: Full Resuscitation Disposition: TBD Other: Patient was seen and case discussed with giovanni [facility]I. Plan of care was discussed and agreed upon. ATTESTATION BY PHYSICIAN I attest that I reviewed and discussed the case with the Physician Soil Science Technical Officer as well as agree with the Physician Soil Science Technical Officer's findings, plans of care, and documentation above. Ovi Hoffmann MD, NELLY J CHARGE MASTER COORDINATOR Feb 04, 2025 08:16
[2025-02-04] MEDS: metoPROLOL tartRATE 1 MG/ML 5ML VIAL IV ONE (09:27)
--- NOTE | 2025-02-04 09:32 | PN ---
[facility] PROGRESS NOTE Date of Service: Feb 04, 2025 Time of Service: 09:29 SUBJECTIVE: 64-year-old male with underlying history of hypertension, history of atrial fibrillation currently not on anticoagulation, history of polysubstance abuse with smoking, alcohol and prior cocaine use who presented to the ER for further evaluation of one-week history of shortness of breath. Patient reported having dyspnea on exertion and PND and orthopnea . He has been having some substernal discomfort as well. He has been having mild coughing as well. Patient denied any fevers or chills or night sweats. Shortness of breaths worsened with activity and patient is able to walk about 50-100 ft before he gets short of breath. Patient was previously hospitalized in [facility] and 02/2024 where he was found to have new onset atrial fibrillation with RVR, patient left against medical advice and reports that he is currently not on any rate control or anticoagulation. Currently smokes about 2-3 packs of cigarettes daily for about 20-30 years. Also drinks about a case of beer about three to 4 times a week. Patient has a history of cocaine use as well. On presentation to the hospital, patient was noted to be afebrile, tachycardic with heart rate in 120s-130s with atrial fibrillation with RVR, blood pressure of 147/117. Labs on presentation showed WBC count of 7900, hemoglobin 14.4, platelet count of 600794. BMP remarkable for sodium of 141, potassium 4.1, BUN of 23,, creatinine 1.1. Chest x-ray showed bilateral infiltrates concerning for pulmonary edema with community-acquired pneumonia not ruled out. Patient will be admitted for decompensated heart failure with underlying atrial fibrillation with RVR. Consultation with Cardiology will be requested. Patient received also IV antibiotics until pneumonia is ruled out. 01/31 patient remains admitted to the PCU, sitting comfortable in the chair, al ert oriented x3. BP 133/95, heart rate of 102, afebrile, saturating 98% on 2 L nasal cannula. He remains on heparin drip CBC with a hemoglobin 14.0, hematocrit 40.7, white blood cell count 6.7, sodium 141, potassium 3.3, BUN of 22, creatinine 1.2, magnesium 1.9, liver enzymes unremarkable. Toxicology screen positive for marijuana. Serology test to include influenza and SARS ant igen negative. Chest x-ray findings consistent pneumoniae, cardiomegaly, Doppler of the lower extremities no evidence of DVT, CT chest no evidence of PE, bilateral pleural effusion, bilateral basilar pneumoniae, echocardiogram pending. Cardiology input noted and appreciated, recommended reducing metoprolol dose, continue with IV diuresis. Pulmonary input noted and appreciated, continue the patient on broad-spectrum IV antibiotics with doxycycline 100 mg p.o. b.i.d. , continue Rocephin 1 g IV q.12 hours, continue CIWA protocol. Monitor for signs of withdrawal. 02/01 patient remains admitted to the PCU, he is sitting in the bed, watching TV, blood pressure 149/104, afebrile, he is saturating 984 through 95% on 2 L nasal cannula. He remains on heparin drip Feels mildly short of breath. No chest pain. Hemoglobin today 13.5, hematocrit 40.0, WBC 6.1, platelet count of 126. Sodium 140, potassium 3.4, BUN of 19, creatinine 0.9. Ultrasound soft tissue of the neck done yesterday as the patient with prominent left external jugular vein was unremarkable. No evidence of hematoma or fluid collection or other abnormalities. Echocardiogram reported as follows Conclusion The left ventricle is dilated. There is global hypokinesis of the left ventricle. LVEF is 20-25%. 3D volume EF 22%. The LV diastolic function was unable to be assessed due to atrial arrhythmia. Severe biatrial enlargement The right ventricle is dilated with reduced systolic function. RV FAC 8% Mild aortic regurgitation. Mild mitral regurgitation. Mild tricuspid regurgitation. Mild pulmonic regurgitation. Negative bubble study. Upon my physical examination, patient alert oriented x3, bibasilar crackles noted, chest x-ray, ABG requested, patient is scheduled to receive furosemide 40 mg IV at 1:00 p.m., we will give it now. We will continue closely monitoring of the patient. 02/02 patient remains admitted to the PCU, comfortable in bed watching TV, alert oriented x3, blood pressure 149/98, heart rate of 117, saturating 90 3% on room air. CBC with a hemoglobin 13.7, hematocrit 41.2, WBC 6.1, platelet count 122. Patient's sodium 142, potassium 3.2, magnesium 2.0. Patient was complaining of shortness a breath yesterday, Lasix 40 mg IV x1 was given, ABG reviewed, pH 7.43, pCO2 29, PO2 99.9, with a bicarbonate of 19.4. Repeat chest x-ray shows bilateral pulmonary infiltrates suggestive of pulmonary vascular congestion with possible superimposed pneumonitis. Urine Legionella antigen negative. Continue current IV antibiotics. We will request Infectious Disease consultation. Continue to follow Pulmonary input and recommendation. Patient has been started on digoxin. Continue metoprolol IV as needed, continue furosemide 40 mg IV q.8 hours. We will give potassium chloride 40 mEq p.o. x1 two keep potassium level above four, magnesium above two. Patient remains on heparin drip, continue to monitor platelet count in a.m. 02/03 patient remains admitted to the PCU, blood pressure 155/107, heart rate of 56, afebrile, saturating 94% on room air, hemoglobin 13.9, hematocrit 40.8, WBC 6.1, platelet count slowly improving 129. Sodium 140, potassium 3.8, BUN of 18, creatinine 1.0, magnesium 1.8, total bili I 0.1, liver enzymes unremarkable, sputum culture Gram-positive cocci in chains and clusters, rare Gram-negative rods. Patient remains on cefepime and doxycycline IV, continue to follow Pulmonary input and recommendation, we will request ID consultation. The patient was started on digoxin yesterday by drying machine operator, at 56, continue to follow Cardiology input and recommendation. During my visit the patient is comfortably in bed, alert oriented x3, denies chest pain, denies shortness for breath, no nausea, no vomiting. We will downgraded to the medical floor, we will get PT to evaluate the patient, anticipate discharge home in the next 24 hours, discussed with the patient and at bedside, in agreement. 02/04 patient remains admitted to the PCU, blood pressure 142/79, heart rate of 130, CBC is unremarkable, stable hemoglobin 16.0, hematocrit 47.3, sodium 139, potassium 3.5, BUN of 18, creatinine 1.0, magnesium 2.1. The patient was digitalized per Cardiology recommendation and remains on digoxin 125 mcg p.o. daily as well as Eliquis 5 mg p.o. b.i.d., patient also on metoprolol IV as needed, losartan 50 mg p.o. daily, we will continue to follow Cardiology input and recommendation at the patient's still tachycardic. In the meantime continue the patient on broad-spectrum IV antibiotics, continue to follow Pulmonary and Infectious Disease input and recommendations. Follow repeat blood cultures. Case discussed with the RN, patient has signed against medical advice, long discussion regarding risk of his decision, patient alert oriented x3, understood all the information provided, however decided to sign against medical advice. REVIEW OF SYSTEMS CONSTITUTIONAL: Denies fevers, chills, or night sweats. No unintentional weight loss reported. NEUROLOGICAL: Denies headache, amaurosis fugax, motor weakness, sensory deficit, vertigo/spinning sensation, gait abnormalities, or tremors. ENT: No hearing loss, otalgia, otorrhea, rhinitis, rhinorrhea, hoarseness, or sore throat. CARDIOVASCULAR: Shortness of breath, dyspnea on exertion, PND, orthopnea PULMONARY: Denies any shortness of breath, cough, phlegm/sputum, hemoptysis, pleuritic chest pain. SLEEP: Denies morning headaches, daytime somnolence or napping. Denies difficu lty falling asleep, staying asleep, waking from sleep. Denies knowledge of snoring. GASTROINTESTINAL: Denies any type of dysphagia to either liquids or solids. Denies nausea, vomiting, pyrosis, early satiety, abdominal pain, diarrhea, constipation, or changes in stool consistency or caliber. Denies coffee-ground emesis, hematemesis, hematochezia, or melanotic stools. GENITOURINARY: Denies frequency, urgency, nocturia, hematuria or incontinence (Storage/Irritative symptoms.) Low urinary stream, straining to void, urinary intermittency or hesitancy, splitting of the voiding stream, terminal dribbling. ENDOCRINOLOGIC: Denies polyuria, polydipsia, polyphagia or heat/cold intol erances. HEMATOLOGIC: Denies thrombophilia/previous clots, or coagulopathy/bleeding disorders. ONCOLOGIC: Denies personal history of malignancy. DERMATOLOGIC: Denies rashes or pruritus. PSYCHIATRIC: Denies any suicidal or homicidal ideation. Denies hallucinations. PHYSICAL EXAM GENERAL APPEARANCE: The patient is awake, alert, and oriented, in no acute cardiopulmonary distress. NEUROLOGICAL: Cranial nerves II-XII grossly intact. Motor is 5/5 in bilateral upper and lower extremities proximal to distal. No sensory deficits. HEENT: Face is symmetric. Pupils are equal and reactive. Extraocular movements are intact. NECK: Supple. No JVD. No thyromegaly. No submental, submandibular, pre- /postauricular, occipital or supraclavicular lymphadenopathy. CHEST: Normal chest expansion. No Telemetry. LUNGS: Crackles, no wheeze CARDIOVASCULAR: Irregularly irregular. S1 and S2 normal. No appreciable rubs, murmurs or gallops. ABDOMEN: Soft, nontender, and nondistended. There is no rebound, voluntary guarding, or rigidity. : Deferred. No Winston. EXTREMITIES: 2+ pitting edema of the lower extremities SKIN: No skin breakdown. Vital Signs (last 8hr) Date Time Temp Pulse Resp B/P (MAP) Pulse Ox O2 Delivery O2 Flow Rate FiO2 02/04/25 09:27 130 142/79 02/04/25 09:26 130 02/04/25 08:00 97.9 92 20 142/79 93 Room Air 02/04/25 07:05 69 18 02/04/25 07:04 72 18 N/A Room Air 21 02/04/25 03:40 98.4 134 20 152/102 94 Room Air LABS: Laboratory: Test 02/04/25 04:10 02/03/25 03:30 Range/Units White Blood Count 7.7 4.8-10.8 K/uL Red Blood Count 4.75 4.50-6.20 MIL/uL Hemoglobin 16.0 14.0-18.0 g/dL Hematocrit 47.3 42-54 % Mean Corpuscular Volume 99.6 H 79-99 fL Mean Corpuscular Hemoglobin 33.7 H 27.0-33.0 pg Mean Corpuscular Hemoglobin Concent 33.8 32.0-36.0 g/dL Red Cell Distribution Width 14.2 11.0-15.5 % Platelet Count 141 130-400 K/uL Mean Platelet Volume 13.7 H 7.5-10.5 fL Nucleated Red Blood Cells 0.0 0.0-0.19 % Sodium Level 139 136-145 mmol/L Potassium Level 3.5 3.5-5.1 mmol/L Chloride Level 102 101-111 mmol/L Carbon Dioxide Level 30 21-32 mmol/L Blood Urea Nitrogen 18 7-18 mg/dL Creatinine 1.0 0.5-1.3 mg/dL Glomerular Filtration Rate Calc 83 >90 mL/min Random Glucose 97 70-105 mg/dL Total Calcium 9.0 8.5-10.1 mg/dL Magnesium Level 2.10 1.80-2.40 mg/dL Total Bilirubin 1.3 H 0.2-1.0 mg/dL Aspartate Amino Transf (AST/SGOT) 39 H 10-37 U/L Alanine Aminotransferase (ALT/SGPT) 42 12-78 U/L Alkaline Phosphatase 114 50-136 U/L Total Protein 7.3 6.0-8.3 g/dL Albumin 3.5 3.5-5.0 g/dL Digoxin Level 0.52 0.50-2.00 ng/mL Current Medications Medications (Trade) Dose Ordered Sig/Nataly Route PRN Reason Start Time Stop Time Status Last Admin Dose Admin Acetaminophen (TYLenol 325MG TAB) 650 mg Q6H PRN PO MILD PAIN (1-3) 01/30/25 13:00 03/01/25 12:59 Apixaban (EliquIS) 5 mg BID PO 02/02/25 21:00 03/04/25 20:59 02/04/25 09:27 5 MG Budesonide (Pulmicort 0.5 Mg/2ml) 0.5 mg BIDRESP IH 01/30/25 18:00 03/01/25 17:59 02/03/25 19:40 0.5 MG Cefepime HCl (MAXipime 1 GM vial) 1 gm Q8H IVPB 02/02/25 13:00 02/12/25 12:59 02/04/25 05:35 1 GM Ceftriaxone Sodium (ROCEphine 1G INJ) 1 gm Q12H IVPB 01/30/25 13:00 02/01/25 17:22 DC 02/01/25 12:53 1 GM Chlordiazepoxide HCl (LIBrium 25 MG CAP) 25 mg Q4H PRN PO ALCOHOL WITHDRAWAL PROTOCOL 01/30/25 14:30 02/06/25 14:29 02/01/25 20:49 25 MG Digoxin (LANOxin 125mcg) 125 mcg DAILY PO 02/03/25 09:00 03/05/25 08:59 02/04/25 09:26 125 MCG Digoxin (LANOxin 250 MCG/ ML 2ML AMP) 250 mcg ONCE IV 02/02/25 08:30 02/02/25 11:21 DC Digoxin (LANOxin 250 MCG/ ML 2ML AMP) 250 mcg ONCE IV 02/02/25 08:30 02/02/25 11:21 DC Doxycycline Hyclate (Doxycycline Hyclate) 100 mg BID PO 01/30/25 21:00 02/04/25 20:59 02/04/25 09:26 100 MG Folic Acid (FOLic ACID 1 MG TABLET) 1 mg DAILY PO 01/31/25 09:00 02/02/25 09:01 DC 02/02/25 08:56 1 MG Furosemide (LASix 40MG VIAL) 40 mg Q12H IV 01/30/25 13:00 02/01/25 13:06 DC 02/01/25 00:31 40 MG Furosemide (LASix 40MG VIAL) 40 mg Q8H IV 02/01/25 16:00 03/03/25 15:59 02/03/25 23:38 40 MG Heparin Sodium (Porcine) (HEParin 5,000 UNIT VIAL) *calculation based on ACTUAL B... AD PRN IV HEPARIN PROTOCOL 01/30/25 15:00 02/02/25 11:41 DC 01/30/25 15:26 8,000 UNIT Heparin Sodium/ Dextrose 250 ml @ 0 mls/hr Q6H IV 01/30/25 15:00 02/02/25 11:39 DC 02/01/25 18:55 14.2 MLS/HR Hydralazine HCl (APRESOLine 20MG INJ) 10 mg Q6H PRN IV ADMINISTER FOR SBP > 170 01/30/25 14:00 03/01/25 13:59 02/01/25 08:32 10 MG Ipratropium Pegram (AtrovENT UD) 0.5 mg Q6H PRN IH SHORTNESS OF BREATH 01/31/25 06:00 03/02/25 05:59 Lactulose (Constulose 20gm/ 30ml Udcup) 20 gm BID PO 02/01/25 21:00 03/03/25 20:59 02/03/25 10:00 20 GM Lorazepam (AtiVAN) 1 mg Q4H PRN IVP ALCOHOL WITHDRAWAL PROTOCOL 01/30/25 14:30 02/03/25 08:27 DC Losartan Potassium (CozAAR 50 mg TAB) 50 mg Q24H PO 01/30/25 14:30 03/01/25 14:29 02/03/25 14:56 50 MG Magnesium Sulfate 50 ml @ 0 mls/hr PROTOCOL IV 01/30/25 13:30 03/01/25 13:29 02/01/25 08:34 1.9 MLS/HR Metoprolol Tartrate (loprESSOR) 5 mg AD PRN IV OTHER [SEE ORDER COMMENTS] 01/30/25 14:30 01/31/25 14:29 DC Metoprolol Tartrate (loprESSOR) 5 mg AD PRN IV INCREASED HEART RATE >100 BPM 02/01/25 20:30 02/03/25 11:55 5 MG Metoprolol Tartrate (loprESSOR) 12.5 mg BID PO 01/31/25 07:30 02/01/25 20:29 DC 02/01/25 08:31 12.5 MG Metoprolol Tartrate (loprESSOR) 25 mg BID PO 02/01/25 21:00 02/02/25 08:08 DC 02/01/25 20:48 25 MG Metoprolol Tartrate (loprESSOR) 25 mg TID PO 01/30/25 21:00 01/31/25 07:30 DC 01/30/25 20:39 25 MG Multivitamins Therapeutic (Multivitamin Tablet) 1 tab DAILY PO 01/31/25 09:00 03/02/25 08:59 02/04/25 09:26 1 TAB Nitroglycerin (Nitrostat) 0.4 mg AD PRN SL CHEST PAIN 01/30/25 13:00 03/01/25 12:59 Ondansetron HCl (zoFRAN 4MG INJ) 4 mg Q6H PRN IVP NAUSEA/VOMITING 01/30/25 13:00 03/01/25 12:59 Pantoprazole Sodium (PROTonix 40MG INJ) 40 mg Q24H IVP 01/30/25 13:00 03/01/25 12:59 02/03/25 14:56 40 MG Pharmacy Profile Note (Pharmacy Communication) 1 each PROTOCOL PRN MISC ETOH Withdrawal Score changes 01/30/25 14:30 02/06/25 14:29 Potassium Chloride 100 ml @ 100 mls/hr AD PRN IV POTASSIUM PROTOCOL 01/30/25 13:30 03/01/25 13:29 Potassium Chloride (K-Dur/Klor-Con 20meq) 20 meq AD PRN PO POTASSIUM PROTOCOL 01/30/25 13:30 03/01/25 13:29 02/04/25 05:35 20 MEQ Potassium Chloride (K-Dur/Klor-Con 20meq) 20 meq BID PO 02/01/25 21:00 03/03/25 20:59 02/04/25 09:26 20 MEQ Potassium Chloride (KCl 10% Elixir 20meq/15ml) 20 meq AD PRN PO POTASSIUM PROTOCOL 01/30/25 13:30 03/01/25 13:29 02/01/25 08:33 20 MEQ DIAGNOSTICS / RADIOLOGY: [ ] ASSESSMENT: Acute on chronic Systolic and Diastolic heart failure exacerbation, (CHADS Vasc score of at least 3),POA Dilated cardiomyopathy, with a ejection fraction 20-25%, LV dilated. Acute hypoxemic respiratory failure, POA Atrial fibrillation with RVR, POA History of medical noncompliance, POA Uncontrolled hypertension, POA History of polysubstance abuse with tobacco and alcohol, POA Prior history of cocaine use, POA BPH, POA Thrombocytopenia on heparin drip PLAN: patient remains admitted to the PCU, blood pressure 142/79, heart rate of 130, CBC is unremarkable, stable hemoglobin 16.0, hematocrit 47.3, sodium 139, potassium 3.5, BUN of 18, creatinine 1.0, magnesium 2.1. The patient was digitalized per Cardiology recommendation and remains on digoxin 125 mcg p.o. daily as well as Eliquis 5 mg p.o. b.i.d., patient also on metoprolol IV as needed, losartan 50 mg p.o. daily, we will continue to follow Cardiology input and recommendation at the patient's still tachycardic. In the meantime continue the patient on broad-spectrum IV antibiotics, continue to follow Pulmonary and Infectious Disease input and recommendations. Follow repeat blood cultures. NEURO: Minimize central acting medications as possible. Fall Precautions. Well lighted room through the day and minimize interruptions through the night to prevent acute delirium. PULMONARY: Supplemental 02 as needed BiPAP as necessary, for respiratory distress Titrate Fio2 to keep Spo2 > or = 90% DuoNebs and CPT as needed IS hourly while awake for pulmonary hygiene prn Out of bed to chair as tolerated Maintain aspiration precautions at all times CARDIOVASCULAR: Follow hemodynamics. Vital signs per facility protocol GI & NUTRITION: Continue nutritional support Aspirations precautions Prokinetic agents and laxatives as needed KIDNEYS & ELECTROLYTES: Strict monitoring of intake and output Daily weights Avoid nephrotoxic agents Monitor electrolytes and replace as needed Goal urine output of 30mL/hr or 0.5mL/kg/hr Medications to be dosed according to renal function. Avoid contrast if possible ENDOCRINE: Maintain blood glucose between 100-180 at all times. Insulin sliding scale for blood glucose management Hypoglycemia and hyperglycemia protocol in place INFECTIOUS DISEASE: Trend temperature, WBC and procalcitonin level Follow cultures, deescalate antibiotics as soon as possible. Panculture if new onset fever HEMATOLOGY & COAGULATION: Monitor H&H. Keep Hgb > 7 Transfuse 1 unit of PRBC for Hgb < 7 Transfuse 1 pack of platelets of platelets < 20, 000 Watch for any signs and symptoms of bleeding SKIN: Pressure ulcer prevention per facility protocol Specialty mattress as needed ORTHO/REHAB Continue PT/OT PRN: MEDICATIONS Tylenol 650 mg po every 4 hrs for fever zofran 4 mg IV every 6 hrs for n/v Hydralazine 5 mg IV every 4 hrs systolic pressure > 160 bowel regiment: lactulose 20 gm PO BID PRN constipation Supportive measures: Continue GI and DVT prophylaxis Disposition: Pending improvement in clinical condition All questions answered time spent: > 35 min FIFI HOROWITZ MD Feb 04, 2025 09:32
[2025-02-04] MEDS ORDERED: PoTASSium chloRIDE 20MEQ ER 20 MEQ ERTAB PO ONE (10:00)
[2025-02-04] MEDS ORDERED: diazePAM 5 MG TAB PO PRN (12:00)
--- NOTE | 2025-02-04 12:00 | NUR ---
PATIENT SPOKE TO MACHINE TRIMMER AND WAS EDUCATED TO NOT LEAVE AMA. PATIENT VERBALIZED UNDERSTANDING. REMOVED IV ACCESS, APPLIED PRESSURE AND DRESSING ONCE BLEEDING STOPPED. TELE MONITOR REMOVED. AMA FORM SIGNED BY PATIENT. NOTIFIED [employer]IPMENT RENTAL ASSOCIATE, CHARGE NURSE AND DR. HOROWITZ.
--- NOTE | 2025-02-04 12:44 | DS ---
Discharge Summary Hospital Course Summary: 64-year-old male with underlying history of hypertension, history of atrial fibrillation currently not on anticoagulation, history of polysubstance abuse with smoking, alcohol and prior cocaine use who presented to the ER for further evaluation of one-week history of shortness of breath. Patient reported having dyspnea on exertion and PND and orthopnea . He has been having some substernal discomfort as well. He has been having mild coughing as well. Patient denied any fevers or chills or night sweats. Shortness of breaths worsened with activ ity and patient is able to walk about 50-100 ft before he gets short of breath. Patient was previously hospitalized in [facility] and 02/2024 where he was found to have new onset atrial fibrillation with RVR, patient left against medical advice and reports that he is currently not on any rate control or anticoagulation. Currently smokes about 2-3 packs of cigarettes daily for about 20-30 years. Also drinks about a case of beer about three to 4 times a week. Patient has a history of cocaine use as well. On presentation to the hospital, patient was noted to be afebrile, tachycardic with heart rate in 120s-130s with atrial fibrillation with RVR, blood pressure of 147/117. Labs on presentation showed WBC count of 7900, hemoglobin 14.4, platelet count of 072316. BMP remarkable for sodium of 141, potassium 4.1, BUN of 23,, creatinine 1.1. Chest x-ray showed bilateral infiltrates concerning for pulmonary edema with community-acquired pneumonia not ruled out. Patient will be admitted for decompensated heart failure with underlying atrial fibrillation with RVR. Consultation with Cardiology will be requested. Patient received also IV antibiotics until pneumonia is ruled out. 01/31 patient remains admitted to the PCU, sitting comfortable in the chair, alert oriented x3. BP 133/95, heart rate of 102, afebrile, saturating 98% on 2 L nasal cannula. He remains on heparin drip CBC with a hemoglobin 14.0, hematocrit 40.7, white blood cell count 6.7, sodium 141, potassium 3.3, BUN of 22, creatinine 1.2, magnesium 1.9, liver enzymes unremarkable. Toxicology screen positive for marijuana. Serology test to include influenza and SARS antigen negative. Chest x-ray findings consistent pneumoniae, cardiomegaly, Doppler of the lower extremities no evidence of DVT, CT chest no evidence of PE, bilateral pleural effusion, bilateral basilar pneumoniae, echocardiogram pending. Cardiology input noted and appreciated, recommended reducing metoprolol dose, continue with IV diuresis. Pulmonary input noted and appreciated, continue the patient on broad-spectrum IV antibiotics with doxycycline 100 mg p.o. b.i.d. , continue Rocephin 1 g IV q.12 hours, continue CIWA protocol. Monitor for signs of withdrawal. 02/01 patient remains admitted to the PCU, he is sitting in the bed, watching TV, blood pressure 149/104, afebrile, he is saturating 984 through 95% on 2 L nasal cannula. He remains on heparin drip Feels mildly short of breath. No chest pain. Hemoglobin today 13.5, hematocrit 40.0, WBC 6.1, platelet count of 126. Sodium 140, potassium 3.4, BUN of 19, creatinine 0.9. Ultrasound soft tissue of the neck done yesterday as the patient with prominent left external jugular vein was unremarkable. No evidence of hematoma or fluid collection or other abnormalities. Echocardiogram reported as follows Conclusion The left ventricle is dilated. There is global hypokinesis of the left ventricle. LVEF is 20-25%. 3D volume EF 22%. The LV diastolic function was unable to be assessed due to atrial arrhythmia. Severe biatrial enlargement The right ventricle is dilated with reduced systolic function. RV FAC 8% Mild aortic regurgitation. Mild mitral regurgitation. Mild tricuspid regurgitation. Mild pulmonic regurgitation. Negative bubble study. Upon my physical examination, patient alert oriented x3, bibasilar crackles noted, chest x-ray, ABG requested, patient is scheduled to receive furosemide 40 mg IV at 1:00 p.m., we will give it now. We will continue closely monitoring of the patient. 02/02 patient remains admitted to the PCU, comfortable in bed watching TV, alert oriented x3, blood pressure 149/98, heart rate of 117, saturating 90 3% on room air. CBC with a hemoglobin 13.7, hematocrit 41.2, WBC 6.1, platelet count 122. Patient's sodium 142, potassium 3.2, magnesium 2.0. Patient was complaining of shortness a breath yesterday, Lasix 40 mg IV x1 was given, ABG reviewed, pH 7.43, pCO2 29, PO2 99.9, with a bicarbonate of 19.4. Repeat chest x-ray shows bilateral pulmonary infiltrates suggestive of pulmonary vascular congestion with possible superimposed pneumonitis. Urine Legionella antigen negative. Continue current IV antibiotics. We will request Infectious Disease consultation. Continue to follow Pulmonary input and recommendation. Patient has been started on digoxin. Continue metoprolol IV as needed, continue furosemide 40 mg IV q.8 hours. We will give potassium chloride 40 mEq p.o. x1 two keep potassium level above four, magnesium above two. Patient remains on heparin drip, continue to monitor platelet count in a.m. 02/03 patient remains admitted to the PCU, blood pressure 155/107, heart rate of 56, afebrile, saturating 94% on room air, hemoglobin 13.9, hematocrit 40.8, WBC 6.1, platelet count slowly improving 129. Sodium 140, potassium 3.8, BUN of 18, creatinine 1.0, magnesium 1.8, total bili I 0.1, liver enzymes unremarkable, sputum culture Gram-positive cocci in chains and clusters, rare Gram-negative rods. Patient remains on cefepime and doxycycline IV, continue to follow Pulmonary input and recommendation, we will request ID consultation. The patient was started on digoxin yesterday by clinical genetics laboratory chief, at 56, continue to follow Cardiology input and recommendation. During my visit the patient is comfortably in bed, alert oriented x3, denies chest pain, denies shortness for breath, no nausea, no vomiting. We will downgraded to the medical floor, we will get PT to evaluate the patient, anticipate discharge home in the next 24 hours, discussed with the patient and at bedside, in agreement. 02/04 patient remains admitted to the PCU, blood pressure 142/79, heart rate of 130, CBC is unremarkable, stable hemoglobin 16.0, hematocrit 47.3, sodium 139, potassium 3.5, BUN of 18, creatinine 1.0, magnesium 2.1. The patient was digitalized per Cardiology recommendation and remains on digoxin 125 mcg p.o. daily as well as Eliquis 5 mg p.o. b.i.d., patient also on metoprolol IV as needed, losartan 50 mg p.o. daily, we will continue to follow Cardiology input and recommendation at the patient's still tachycardic. In the meantime continue the patient on broad-spectrum IV antibiotics, continue to follow Pulmonary and Infectious Disease input and recommendations. Follow repeat blood cultures. Case discussed with the RN, patient has signed against medical advice, long discussion regarding risk of his decision, patient alert oriented x3, understood all the information provided, however decided to sign against medical advice. 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 Acute hypoxemic respiratory failure, POA Atrial fibrillation with RVR, POA History of medical noncompliance, POA Uncontrolled hypertension, POA History of polysubstance abuse with tobacco and alcohol, POA Prior history of cocaine use, POA BPH, POA Thrombocytopenia on heparin drip Discharge Instructions: Patient has signed AMA. Home Medications: Reported Medications Tamsulosin HCl (Flomax) 0.4 Mg Cap.er.24h, 1 CAP DAILY 01/30/25 Time spent arranging discharge: 31-60 minutes FIFI HOROWITZ MD Feb 04, 2025 12:44
--- NOTE | 2025-02-05 09:38 | NUR ---
Transitional Phone Call Spoke to patient, states dissatisfied with patient care and states "I'm doing great right now." As patient is speaking the phone call was cut off; this CM called back twice and went to voicemail, left message to return call and address patient's issues.
== END 2025-02-04 12:00 | disposition left against medical advice (07) | DRG 291 ==
LOC: EDH 09:35 → EDHIP 12:52 → 2AH 21:50
PROVIDERS: ADMIT Internal Medicine; ATTEND Internal Medicine
DX: I11.0 Hypertensive heart disease with heart failure (principal); I50.43 Acute on chronic combined systolic (congestive) and diastolic (congestive) heart failure; J96.01 Acute respiratory failure with hypoxia; I48.92 Unspecified atrial flutter; I42.0 Dilated cardiomyopathy; I48.0 Paroxysmal atrial fibrillation; N40.0 Benign prostatic hyperplasia without lower urinary tract symptoms; F10.10 Alcohol abuse, uncomplicated; Z20.822 Contact with and (suspected) exposure to COVID-19; D69.6 Thrombocytopenia, unspecified; E66.9 Obesity, unspecified; E87.6 Hypokalemia; F12.10 Cannabis abuse, uncomplicated; F14.10 Cocaine abuse, uncomplicated; F17.210 Nicotine dependence, cigarettes, uncomplicated; I25.10 Atherosclerotic heart disease of native coronary artery without angina pectoris; Z96.652 Presence of left artificial knee joint; Z53.29 Procedure and treatment not carried out because of patient's decision for other reasons; Z63.4 Disappearance and death of family member; Z68.30 Body mass index [BMI] 30.0-30.9, adult; Z79.01 Long term (current) use of anticoagulants; Z79.899 Other long term (current) drug therapy; Z82.49 Family history of ischemic heart disease and other diseases of the circulatory system; Z83.3 Family history of diabetes mellitus; Z91.148 Patient's other noncompliance with medication regimen for other reason
CPT/HCPCS: 36415; 36600; 71045; 71270; 74018; 76376; 76536; 80048; 80053; 80076; 80162; 80305; 81001; 82550; 82803; 82948; 83036; 83615; 83735; 83880; 84132; 84145; 84443; 84484; 85025; 85027; 85378; 85610; 85651; 85730; 86140; 86738; 87040; 87071; 87205; 87449; 87635; 87804; 93005; 93306; 93356; 93970; 94640; 94664; 99291; G0378; J0360; J0692; J0696; J1160; J1171; J1644; J1938; J2470; J3475; J3490; Q9967; A4216